=== PATIENT | female | born 1940 | race Caucasian/White ===

== ENCOUNTER 2020-04-04 08:30 | Outpatient (CLI) | payer MEDICARE, OTHER, SELFPAY ==
--- NOTE | 2020-04-04 08:48 | MM_ITS ---
WS: [id number] BILATERAL DIGITAL SCREENING MAMMOGRAPHY WITH CAD CLINICAL INFORMATION: SCREENING HISTORY: Screening mammogram. No current complaints. COMPARISON: TECHNIQUE: Bilateral CC and MLO views. FINDINGS: The breasts are composed of heterogeneous fibroglandular density tissue, which can limit the detectio n of small underlying mass lesions. No suspicious mass, asymmetry, calcifications, or architectural d istortion. No evidence of malignancy. Vascular calcification. Cardiac pacer. MM/[place] [id number] IMPRESSION: BI-RADS: 2-Benign FOLLOW UP: 1 Year Follow-up Recommend return to annual screening mammography.
== END 2020-04-04 08:31 | disposition home or self-care (01) ==
PROVIDERS: PCP Family Medicine; Visit Provider Family Medicine
DX: Z12.31 Encounter for screening mammogram for malignant neoplasm of breast (principal)
CPT/HCPCS: 77067

== ENCOUNTER → 2020-08-29 16:10 | Outpatient (BNVA) | payer MEDICARE, OTHER, SELFPAY | PROVIDERS: PCP Family Medicine; Visit Provider Family Medicine | DX: Z11.59 Encounter for screening for other viral diseases (principal) | CPT/HCPCS: 87635 ==

== ENCOUNTER 2020-08-30 08:20 | Emergency (ER) | payer MEDICARE, OTHER, SELFPAY ==
--- NOTE | 2020-08-30 08:37 | XR_ITS ---
WS: [id number] Portable AP upright chest, 08/30/2020 Clinical Data: Cough Comparison: Portable chest, 11/28/2016. Findings: No nodules, masses or effusions are seen. The heart is normal. The pulmonary vascularity is not increased. No pneumonia or pneumothorax is seen. The 2-lead pacemaker remains in the same positi on with the generator overlying the left mid chest. There is a levoscoliosis of the thoracic spine. T he aortic arch and descending aorta show mild tortuosity. XR/XR chest 1V portable [id number] Impression: Atherosclerosis and permanent pacemaker.
[2020-08-30 08:44] VITALS: PULSE 78; RESP 18; TEMP 36.9; O2SAT 97; BMI 25.2
[2020-08-30 08:47] VITALS: PULSE 78; RESP 16; TEMP 36.9; O2SAT 97
[2020-08-30 08:47] LABS: Basophils % 1.4 %; Eosinophils % 0.5 %; Hematocrit 43.9 % (37.0-47.0); Hemoglobin 14.7 g/dL (11.5-15.3); Lymphocytes # 0.5 10^3/uL (0.8-4.8); Lymphocytes % 20.4 %; Mean Corpuscular HGB Conc 33.5 g/dL (30.0-36.0); Mean Corpuscular Hemoglobin 30.7 pg (28.0-34.0); Mean Corpuscular Volume 91.6 fL (81-99); Monocytes # 0.2 10^3/uL (0.2-0.9); Monocytes % 10.4 %; Neutrophils # 1.47 10^3/uL (1.8-7.7); Neutrophils % 66.4 %; Nucleated Red Blood Cells % 0 %; Platelet Count 87 10^3/cmm (130-400); Red Blood Count 4.79 10^6/uL (4.1-5.3); Red Cell Distribution Width 11.5 % (12.1-15.1); White Blood Count 2.2 10^3/uL (4.0-10.0)
[2020-08-30 08:53] VITALS: BP 170/91; PULSE 73; RESP 16; O2SAT 97
[2020-08-30] MEDS: sodium chloride 0.9% 1,000 ML 999 ML IV (08:53)
--- NOTE | 2020-08-30 08:56 | W.ED.SOB ---
HPI - SOB/Dyspnea General: Chief Complaint: Shortness of Breath/Dyspnea Stated Complaint: Persistent cough,SOB. Time Seen by Provider: 08/30/20 08:26 Source: patient Mode of arrival: ambulatory Limitations: no limitations History of Present Illness: HPI Narrative: Destiny is a very nice 80-year-old female who comes in complaining of cough, shortness of breath and decreased appetite. She has chills and she is had a fever as high as 100.6. The patient believes she has the COVID-19 virus. Her and she have both been tested but the results are unknown. Patient states that her symptoms have been present for about the last week and a half. Any type of exertion makes her symptoms worse and rest and sleep makes it better. She states that she has continued diarrhea and just generalized weakness. Associated symptoms: Reports fever(s) and nausea; Deny abdominal pain, chest congestion, chest pain, diaphoresis, dizziness, extremity pain, hemoptysis, lightheadedness, orthopnea, palpitations, syncope or vomiting Review of Systems Const: Reports: fever(s), chills, body aches, fatigue and malaise; Denies: diaphoresis Eyes: Denies: change in vision, blurry vision, photophobia, eye discomfort, eye discharge, eye redness or yellow eyes ENMT: Denies: throat pain, odynophagia, hoarseness, swelling of lips/tongue, ear or mastoid pain, ear discharge, change in hearing or nasal discharge Card: Denies: chest pain, palpitations, irregular heart rhythm, edema, lightheadedness, syncope, pre-syncope, dyspnea on exertion or orthopnea Resp: Reports: non-productive cough; Denies: dyspnea, productive cough, wheezing, hemoptysis or chest congestion GI: Reports: nausea; Denies: abdominal pain, vomiting, hematemesis, coffee ground emesis, heartburn, diarrhea, constipation, GI cramping, hematochezia or melena : Denies: flank pain, dysuria, urinary frequency, urinary urgency or hematuria Musc: Denies: neck pain, back pain, extremity pain, extremity swelling, joint pain, joint swelling, joint redness, joint warmth or joint stiffness Skin/Breast: Denies: rash, pruritus, erythema, skin pain or skin tenderness Neuro: Denies: headache(s), numbness in extremities, weakness in extremities, sensory changes, lack of coordination, difficulty walking, dizziness, vertigo, confusion, Slurred speech present or seizure-like activity Juan/Lymph: Denies: easy bruising, easy bleeding, petechiae, purpura or enlarged lymph nodes All/Imm: Denies: urticaria, throat swelling, tongue swelling, facial swelling or acute wheezing PFSH ED PFSH: Medical History Allergic rhinitis Aortic regurgitation Atrial fibrillation Hypertension Hypothyroid Pacemaker Family History Other CAD (coronary artery disease) Diabetes Stroke Social History Smoking and tobacco status: never smoked Alcohol intake: never Household members: spouse Marital status: Physical Exam Const: COMMON NORMALS: no acute distress, patient oriented x3, no limitations and alert GENERAL APPEARANCE: cooperative HENMT: COMMON NORMALS: normocephalic, atraumatic, external ears normal, EAC's normal and Normal external nose present HEAD & SCALP: normal to inspection, normocephalic and atraumatic FACE & SINUS: normal facial exam and face symmetric NOSE: Normal external nose present and Normal nares present EXTERNAL EAR: Yes external ears normal EXTERNAL AUDITORY CANAL: EAC's normal MOUTH: Normal oral and palatal mucosa present, lip normal and tongue normal Eye: COMMON NORMALS: Equal, round and reactive pupils present and conjunctivae normal GENERAL EYE: appearance normal, both eyes and all related structures ALIGNMENT: Yes alignment normal PERIORBITAL: periorbital findings normal EYELID: eyelids normal CONJUNCTIVA: Yes conjunctivae normal SCLERA: sclerae normal PUPIL: Yes Equal, round and reactive pupils present Neck/C-Spine: COMMON NORMALS: full ROM, no lymphadenopathy, supple, no meningeal signs and no JVD GENERAL: Yes normal visual inspection and Yes trachea midline Chest: COMMONS NORMALS: normal inspection of the chest and normal palpation of entire chest wall Resp: COMMON NORMALS: normal respiratory effort, No retractions, No use of accessory muscles and clear to auscultation bilaterally EFFORT & INSPECTION: Yes able to speak in complete sentences and Yes symmetric chest movement AUSCULTATION: clear to auscultation bilaterally, no crackles, no rales, no rhonchi and no wheezes Cardio: COMMON NORMALS: no JVD, regular rate, regular rhythm, S1 normal heart sound present and S2 normal heart sound present RATE: regular rate RHYTHM: regular rhythm HEART SOUNDS: S1 normal heart sound present, S2 normal heart sound present, no click, no gallops, no murmurs and no rubs GI: COMMON NORMALS: Soft to palpation and No hepatosplenomegaly present PALPATION: Yes Soft to palpation, No Tenderness to palpation present (GI), No Guarding due to palpation present (GI), No Rigid due to palpation, Yes No hepatosplenomegaly present, No Hernia present, No Palpable mass present and No Pulsatile mass present : COMMON NORMALS: Yes no CVA tenderness BLADDER/KIDNEY EXAM: Yes no CVA tenderness EXTERNAL FEMALE EXAM: No Hernia present Back/Pelvis: COMMON NORMALS: no CVA tenderness, thoracic and lumbar spine normal to inspection, no thoracic nor lumbar tenderness and thoraco-lumbar ROM normal Extremity: COMMON NORMALS: normal to inspection, full ROM, capillary refill normal, no joint enlargement, no clubbing, cyanosis or edema and no calf tenderness Neuro: COMMON NORMALS: patient oriented x3, CN's II-XII intact bilaterally, moves all extremities, no focal motor deficits and no sensory deficits noted SENSORIUM/ORIENTATION: Yes alert MENINGEAL SIGNS: Yes no meningeal signs SPEECH: speech normal Psych: COMMON NORMALS: mental status grossly normal, Normal thought process present, cooperative, normal affect, speech normal and activity/motor behavior normal SPEECH: Yes normal speech THOUGHT PROCESS: Normal thought process present Skin: COMMON NORMALS: no rashes or lesions noted, turgor normal, no jaundice, no petechiae and no mottling GENERAL SKIN EXAM: no rashes or lesions noted and turgor normal Course Vital Signs: Vital signs: Vital Signs Temperature 98.7 F 08/30/20 10:32 Pulse Rate 79 08/30/20 10:32 Respiratory Rate 18 08/30/20 10:32 Blood Pressure 167/92 08/30/20 10:32 Pulse Oximetry 97 08/30/20 10:32 MDM - SOB/Dyspnea MDM Narrative: Medical decision making narrative: 1000 - Mrs. Dow is a very nice 80-year-old female who comes in complaining of primarily generalized weakness and diarrhea. I believe she is mildly dehydrated from her diarrhea that she has from the COVID-19 virus. She is not in respiratory distress and she is not hypoxic. I go to place her on steroids for her breathing as she is symptomatic with this and will place her on antibiotic as she is mildly leukopenic. Patient wants to try something for diarrhea at home slight given her dicyclomine. Clinically she does not appear toxic and is several days into this illness. She understands to return if her symptoms change or worsen but at this time she is feeling better would like to be discharged. I did review the case with Dr. Noland he is agreeable to this plan. Lab Data: Attestation: I reviewed the patient's lab results. Labs: Lab Results 08/30/20 08/30/20 08/30/20 Range/Units 08:38 08:38 08:38 WBC 2.2 L (4.0-10.0) 10^3/ uL RBC 4.79 (4.1-5.3) 10^6/u L Hgb 14.7 (11.5-15.3) g/dL Hct 43.9 (37.0-47.0) % MCV 91.6 (81-99) fL MCH 30.7 (28.0-34.0) pg MCHC 33.5 (30.0-36.0) g/dL RDW 11.5 L (12.1-15.1) % Plt Count 87 L (130-400) 10^3/c mm MPV 10.0 (7.4-10.4) fL Neut % (Auto) 66.4 % Lymph % (Auto) 20.4 % [place] % (Auto) 10.4 % Eos % (Auto) 0.5 % Baso % (Auto) 1.4 % Neut # (Auto) 1.47 L (1.8-7.7) 10^3/u L Lymph # (Auto) 0.5 L (0.8-4.8) 10^3/u L [place] # (Auto) 0.2 (0.2-0.9) 10^3/u L Eos # (Auto) 0.0 (0.0-0.8) 10^3/u L Baso # (Auto) 0.0 (0.0-0.1) 10^3/u L Nucleated RBC % (a uto) 0 % Nucleated RBCs # 0.0 /100WBC Fibrinogen 457 (174-498) mg/dL Sodium 138 (136-145) mmol/L Potassium 3.9 (3.5-5.1) mmol/L Chloride 100 (98-107) mmol/L Carbon Dioxide 25 (22-29) mmol/L Anion Gap 16.9 (5-19) BUN 19 (8-23) mg/dL Creatinine 1.0 H (0.5-0.9) mg/dL GFR Calculation Not Reportable Glucose 154 H (65-115) mg/dL Calculated Osmolal ity 291 (285-295) mOsm/k g Lactic Acid (0.5-2.2) mmol/L Calcium 9.1 (8.5-10.5) mg/dL Magnesium 1.9 (1.7-2.3) mg/dL Total Bilirubin 0.7 (0.15-1.2) mg/dL AST 48 H (0-32) U/L ALT 14 (0-33) U/L Alkaline Phosphata se 74 (35-105) IU/L Lactate Dehydrogen ase 277 H (135-214) U/L C-Reactive Protein 14.6 H (0.0-4.9) mg/L Total Protein 6.6 (6.6-8.7) g/dL Albumin 4.3 (3.5-5.2) g/dL Globulin 2.3 (1.3-4.6) g/dL Procalcitonin 0.08 (0-0.5) ng/mL Influenza Type A A g (Negative) Influenza Type B A g (Negative) SARS-CoV-2 Ag (Rap id) (Negative) 08/30/20 08/30/20 08/30/20 Range/Units 08:38 08:59 08:59 WBC (4.0-10.0) 10^3/ uL RBC (4.1-5.3) 10^6/u L Hgb (11.5-15.3) g/dL Hct (37.0-47.0) % MCV (81-99) fL MCH (28.0-34.0) pg MCHC (30.0-36.0) g/dL RDW (12.1-15.1) % Plt Count (130-400) 10^3/c mm MPV (7.4-10.4) fL Neut % (Auto) % Lymph % (Auto) % [place] % (Auto) % Eos % (Auto) % Baso % (Auto) % Neut # (Auto) (1.8-7.7) 10^3/u L Lymph # (Auto) (0.8-4.8) 10^3/u L [place] # (Auto) (0.2-0.9) 10^3/u L Eos # (Auto) (0.0-0.8) 10^3/u L Baso # (Auto) (0.0-0.1) 10^3/u L Nucleated RBC % (a uto) % Nucleated RBCs # /100WBC Fibrinogen (174-498) mg/dL Sodium (136-145) mmol/L Potassium (3.5-5.1) mmol/L Chloride (98-107) mmol/L Carbon Dioxide (22-29) mmol/L Anion Gap (5-19) BUN (8-23) mg/dL Creatinine (0.5-0.9) mg/dL GFR Calculation Glucose (65-115) mg/dL Calculated Osmolal ity (285-295) mOsm/k g Lactic Acid 1.1 (0.5-2.2) mmol/L Calcium (8.5-10.5) mg/dL Magnesium (1.7-2.3) mg/dL Total Bilirubin (0.15-1.2) mg/dL AST (0-32) U/L ALT (0-33) U/L Alkaline Phosphata se (35-105) IU/L Lactate Dehydrogen ase (135-214) U/L C-Reactive Protein (0.0-4.9) mg/L Total Protein (6.6-8.7) g/dL Albumin (3.5-5.2) g/dL Globulin (1.3-4.6) g/dL Procalcitonin (0-0.5) ng/mL Influenza Type A A g Negative (Negative) Influenza Type B A g Negative (Negative) SARS-CoV-2 Ag (Rap id) Positive H (Negative) Imaging Data^: CXR: Attestation: I personally reviewed and interpreted this imaging study as follows: My impression: No acute cardiopulmonary findings. Discharge Plan Discharge Patient Disposition: Home Clinical Impression: Viral pneumonitis, COVID-19 virus infection Diarrhea Qualifiers: Diarrhea type: unspecified type Qualified Code(s): R19.7 - Diarrhea, unspecified Condition: Stable Prescriptions: New Decadron 6 mg tablet 6 mg PO DAILY Qty: 10 RF: 0 Zithromax Z-Fabio 250 mg tablet See Rx Instructions .ROUTE .COMPLEX Qty: 6 RF: 0 Zofran 4 mg tablet 4 mg PO Q6H PRN (Reason: nausea and vomiting) Qty: 20 RF: 0 dicyclomine 10 mg capsule 10 mg PO TID PRN (Reason: diarrhea) Qty: 30 RF: 0 No Action nitroglycerin [Nitrostat] 0.4 mg tablet, sublingual 0.4 mg SUBLINGUAL Q5M PRNRF: 0 cholecalciferol (vitamin D3) 25 mcg (1,000 unit) capsule 25 mcg PO DAILY RF: 0 ketotifen fumarate [Zaditor] 0.025 % (0.035 %) drops 1 drop ophthalmic (eye) BID RF: 0 multivitamin Tablet 1 tab PO DAILY RF: 0 silver biotics 1 tbsp PO DAILY RF: 0 fluticasone propionate [Flonase Allergy Relief] 50 mcg/actuation spray,suspension 1 spray INTRANASAL BID RF: 0 chromium picolinate 1,000 mcg tablet 1,000 mcg PO DAILY RF: 0 selenium 200 mcg capsule 200 mcg PO DAILY RF: 0 zinc gluconate 50 mg tablet 50 mg PO DAILY RF: 0 omega-3 acid ethyl esters 1 gram capsule 1 cap PO DAILY RF: 0 biotin 5,000 mcg tablet, sublingual 5,000 mcg SUBLINGUAL DAILY RF: 0 coenzyme Q10 [Co Q-10] 100 mg capsule 100 mg PO DAILY RF: 0 potassium gluconate 595 mg (99 mg) tablet 595 mg PO DAILY RF: 0 multivitamin Tablet 1 tab PO DAILY RF: 0 magnesium oxide 400 mg magnesium tablet 400 mg PO DAILY RF: 0 levothyroxine 75 mcg capsule 75 mcg PO DAILY RF: 0 metoprolol tartrate 50 mg tablet 100 mg PO BID RF: 0 Discharge Orders: Discharge Order (Routine); Ordered 08/30/20 Ordered By: Sita James Referrals: Chucky Noland MD [Primary Care Provider] - 1-3 days Discharge Diet: Advance as tolerated Discharge Activity: Increase activity as tolerated Patient Instructions: Viral Pneumonia (ED), Acute Nausea and Vomiting (ED), Acute Diarrhea (ED) Activity Restrictions/Additional Instructions: Please return to the ER immediately for any of the signs or symptoms listed on your discharge instruction sheets, worsening/changing of your symptoms, you are not getting better as quickly as expected, or for ANY other cause or concerns. Return to the ER for worsening of your diarrhea, uncontrolled fever, new onset of vomiting, blood in your stools, or for any other cause for concern. Be certain to follow-up with Dr. Noland for recheck next week. Discharge Date/Time: 08/30/20 10:36 Coding Level of Care Code ED Warehouse Helper for Chg Fwd Exam Comprehensive
[2020-08-30 08:58] LABS: Fibrinogen 457 mg/dL (174-498)
[2020-08-30 09:03] LABS: Lactic Sepsis W/Reflex 1.1 mmol/L (0.5-2.2)
[2020-08-30 09:11] LABS: Procalcitonin 0.08 ng/mL (0-0.5)
[2020-08-30 09:22] LABS: Alanine Aminotransferase 14 U/L (0-33); Albumin Level 4.3 g/dL (3.5-5.2); Alkaline Phosphatase 74 IU/L (35-105); Blood Urea Nitrogen 19 mg/dL (8-23); C Reactive Protein 14.6 mg/L (0.0-4.9); Calcium 9.1 mg/dL (8.5-10.5); Carbon Dioxide 25 mmol/L (22-29); Chloride 100 mmol/L (98-107); Globulin 2.3 g/dL (1.3-4.6); Glucose 154 mg/dL (65-115); Magnesium 1.9 mg/dL (1.7-2.3); Osmolality Calculated 291 mOsm/kg (285-295); Sodium 138 mmol/L (136-145); Total Bilirubin 0.7 mg/dL (0.15-1.2); Total Protein 6.6 g/dL (6.6-8.7)
[2020-08-30 09:28] LABS: Anion Gap 16.9 (5-19); Aspartate Amino Transferase 48 U/L (0-32); Lactate Dehydrogenase 277 U/L (135-214); Potassium 3.9 mmol/L (3.5-5.1)
[2020-08-30 09:40] LABS: SARS Covid-2 Antigen Positive (Negative)
[2020-08-30 09:43] LABS: Influenza A by IFA Negative (Negative); Influenza B by IFA Negative (Negative)
[2020-08-30] MEDS: levoFLOXacin 750 mg Tablet PO (10:20)
[2020-08-30] MEDS: dexamethasone 10 mg/mL INJ IVP (10:20)
[2020-08-30 10:32] VITALS: BP 167/92; PULSE 79; RESP 18; TEMP 37.1; O2SAT 97
== END 2020-08-30 10:36 | disposition home or self-care (01) ==
PROVIDERS: Emergency Provider Emergency Medicine; PCP Family Medicine
DX: U07.1 COVID-19 (principal); J12.89 Other viral pneumonia; R19.7 Diarrhea, unspecified; I48.91 Unspecified atrial fibrillation; I10 Essential (primary) hypertension; Z95.0 Presence of cardiac pacemaker
CPT/HCPCS: 12345; 71045; 80053; 83605; 83615; 83735; 84145; 85025; 85384; 86140; 87040; 87426; 87804; 96361; 96374; 96375; 99283; 99284; J1100; J7030

== ENCOUNTER 2020-10-30 21:06 | Emergency (ER) | payer MEDICARE, OTHER, SELFPAY ==
[2020-10-30 21:08] VITALS: BP 198/98; PULSE 75; RESP 18; TEMP 36.6; O2SAT 97; BMI 26.4
--- NOTE | 2020-10-30 21:16 | XRR_ITS ---
PROCEDURE INFORMATION: Exam: XR Right Shoulder Exam date and time: 10/30/2020 9:30 PM Age: 80 years old Clinical indication: Injury or trauma; Fall; Blunt trauma (contusions or hematomas); Shoulder; Right; Injury date: 10/30/20 TECHNIQUE: Imaging protocol: XR Right shoulder. Views: 2 or more views. COMPARISON: No relevant prior studies available. FINDINGS: Bones/joints: There is a impacted comminuted fracture through the proximal humeral neck. The fracture is oriented predominantly transversely but there is a hairline longitudinal component extending into the shaft. The distal fragment is displaced approximately 1.5 cm anteriorly. The humeral head is not dislocated. The scapula and clavicle are unremarkable. Soft tissues: Normal. XR/XR shoulder RT min 2V* [id number] IMPRESSION: Displaced comminuted transverse fracture of the proximal humerus.
--- NOTE | 2020-10-30 21:17 | W.ED.FALL ---
HPI - Fall General: Chief Complaint: Fall Stated Complaint: fall/injury to right shoulder Time Seen by Provider: 10/30/20 21:17 History of Present Illness: HPI Narrative: Patient is a 80-year-old female comes to the ED with right shoulder pain after a fall. Fall occurred just prior to arrival. Patient says she slipped on some water on concrete ground floor. She fell and landed on her right shoulder. She says she felt a pop. Patient says she is in some pain but does not want any narcotic pain meds currently while here in the ED. Patient would just like some Tylenol for pain. Denies any head trauma or loss of consciousness. Associated symptoms-after fall: Denies abdominal pain, chest pain, headache(s), hematuria or neck pain Review of Systems Const: Denies: fever(s), chills or fatigue Eyes: Denies: change in vision or eye discomfort ENMT: Denies: throat pain, odynophagia, nasal discharge or nasal congestion Card: Denies: chest pain, palpitations, edema, swelling of feet/ankles, dyspnea on exertion or orthopnea Resp: Denies: dyspnea, productive cough or non-productive cough GI: Denies: abdominal pain, nausea, vomiting, diarrhea, constipation or hematochezia : Denies: flank pain, dysuria or hematuria Musc: Reports: extremity pain (right upper arm and right shoulder); Denies: neck pain, back pain or extremity swelling Skin/Breast: Denies: rash or new lesions Neuro: Denies: headache(s), numbness in extremities or weakness in extremities [facility] ED PFSH: Medical History Allergic rhinitis Aortic regurgitation Atrial fibrillation Hypertension Hypothyroid Pacemaker Family History Other CAD (coronary artery disease) Diabetes Stroke Social History Smoking and tobacco status: never smoked Alcohol intake: never Household members: spouse Marital status: Physical Exam Const: COMMON NORMALS: patient oriented x3, healthy appearing and alert GENERAL APPEARANCE: cooperative and comfortable HENMT: COMMON NORMALS: normocephalic HEAD & SCALP: normocephalic MOUTH: Normal oral and palatal mucosa present THROAT: posterior oropharynx normal and uvula midline Neck/C-Spine: COMMON NORMALS: supple GENERAL: Yes normal visual inspection Resp: COMMON NORMALS: normal respiratory effort, No retractions, No use of accessory muscles and clear to auscultation bilaterally AUSCULTATION: clear to auscultation bilaterally Cardio: COMMON NORMALS: regular rate, regular rhythm, S1 normal heart sound present, S2 normal heart sound present, No gallops present (Cardio), No clicks present (Cardio), No murmurs present (Cardio) and Peripheral pulses 2+ throughout RATE: regular rate RHYTHM: regular rhythm HEART SOUNDS: S1 normal heart sound present and S2 normal heart sound present PERIPHERAL PULSES: Peripheral pulses 2+ throughout GI: COMMON NORMALS: Normal to inspection, nondistended, normoactive bowel sounds present, Soft to palpation, non-tender and no masses PALPATION: Yes Soft to palpation : COMMON NORMALS: Yes no CVA tenderness BLADDER/KIDNEY EXAM: Yes no CVA tenderness Back/Pelvis: COMMON NORMALS: no CVA tenderness Extremity: GENERAL: Yes normal exam except as noted RIGHT UPPER EXTREMITY: Yes shoulder joint (Patient has tenderness to palpation around the proximal humeral head.) Right shoulder: Yes Right shoulder joint inspection exam (No visible deformity, or ecchymosis. Some mild edema and lateral aspect of), Yes palpation, Yes Right shoulder joint ROM exam (Limited due to pain.) and Yes Right shoulder joint neurovascular exam (Intact, radial pulse 2+.) Neuro: COMMON NORMALS: patient oriented x3 and moves all extremities SENSORIUM/ORIENTATION: Yes alert Skin: GENERAL SKIN EXAM: dry skin Course Vital Signs: Vital signs: Vital Signs Temperature 97.8 F 10/30/20 21:08 Pulse Rate 75 10/30/20 21:08 Respiratory Rate 16 10/30/20 22:06 Blood Pressure 198/98 10/30/20 21:08 Pulse Oximetry 97 10/30/20 21:08 MDM - Fall MDM Narrative: Medical decision making narrative: Patient is a 80-year-old female who comes to the ED with right shoulder pain after fall. No visible deformity seen but patient has tenderness upon palpation of the proximal head of right humerus. Neurovascular intact distally. Right shoulder x-ray showed surgical neck fracture of the proximal humerus. Patient was put in a shoulder sling and swath. I placed an order with case management for patient to be referred to Dr. Aponte. Patient says that she sees Dr. Aponte and no one else. She was sent home with a written prescription for hydrocodone. I told her casework supervisor will be contacting her in the next several days to set up an appoint with orthopedic doctor. Return to ED precautions given. Patient understood agree with plan. Imaging Data^: Xray Ortho: Attestation: I personally reviewed and interpreted this imaging study as follows: My impression: Right shoulder x-ray?minimally displaced surgical neck fracture of the proximal humerus. Discharge Plan Discharge Patient Disposition: Home Clinical Impression: Fracture of proximal end of humerus Qualifiers: Encounter type: initial encounter Fracture type: closed Fracture morphology: other fracture Fracture alignment: nondisplaced Laterality: right Qualified Code(s): S42.294A - Other nondisplaced fracture of upper end of right humerus, initial encounter for closed fracture Condition: Stable Prescriptions: No Action nitroglycerin [Nitrostat] 0.4 mg tablet, sublingual 0.4 mg SUBLINGUAL Q5M PRNRF: 0 cholecalciferol (vitamin D3) 25 mcg (1,000 unit) capsule 25 mcg PO DAILY RF: 0 ketotifen fumarate [Zaditor] 0.025 % (0.035 %) drops 1 drop ophthalmic (eye) BID RF: 0 multivitamin Tablet 1 tab PO DAILY RF: 0 silver biotics 1 tbsp PO DAILY RF: 0 fluticasone propionate [Flonase Allergy Relief] 50 mcg/actuation spray,suspension 1 spray INTRANASAL BID RF: 0 chromium picolinate 1,000 mcg tablet 1,000 mcg PO DAILY RF: 0 selenium 200 mcg capsule 200 mcg PO DAILY RF: 0 zinc gluconate 50 mg tablet 50 mg PO DAILY RF: 0 omega-3 acid ethyl esters 1 gram capsule 1 cap PO DAILY RF: 0 biotin 5,000 mcg tablet, sublingual 5,000 mcg SUBLINGUAL DAILY RF: 0 coenzyme Q10 [Co Q-10] 100 mg capsule 100 mg PO DAILY RF: 0 potassium gluconate 595 mg (99 mg) tablet 595 mg PO DAILY RF: 0 multivitamin Tablet 1 tab PO DAILY RF: 0 magnesium oxide 400 mg magnesium tablet 400 mg PO DAILY RF: 0 levothyroxine 75 mcg capsule 75 mcg PO DAILY RF: 0 metoprolol tartrate 50 mg tablet 100 mg PO BID RF: 0 Zofran 4 mg tablet 4 mg PO Q6H PRN (Reason: nausea and vomiting) Qty: 20 RF: 0 dicyclomine 10 mg capsule 10 mg PO TID PRN (Reason: diarrhea) Qty: 30 RF: 0 Discharge Orders: Discharge ED (Routine); Ordered 10/30/20 Ordered By: Christian Lawson Referrals: Chucky Noland MD [Primary Care Provider] - Discharge Diet: Regular Discharge Activity: Limit activity as instructed Patient Instructions: Fractures - Humerus, Arm Fracture in Adults (ED) Activity Restrictions/Additional Instructions: Follow-up with medical provider as directed. Case management should be contacting you in the next several days to set up an appoint with the orthopedic doctor Dr. Aponte. Keep arm in immobilizer limit activity and use of right arm. Take pain medications as prescribed. Return to the ER or your medical provider if condition worsens. Please read and understand discharge instructions. If any questions, please ask. Coding Level of Care Code ED Convention Manager for Alexx Fwd Exam Comprehensive
[2020-10-30] MEDS: acetaminophen 500 mg Tablet 1000 MG PO (21:43)
[2020-10-30 22:06] VITALS: RESP 16
--- NOTE | 2020-10-31 09:16 | DCPLANNER ---
problem manager had message to schedule a follow up appointment for patient with ortho. problem manager called the ortho clinic, spoke with Samara, gave clinic patients information. problem manager was told that patients information would be printed and reviewed. Clinic will call patient with appointment information.
--- NOTE | 2020-11-06 13:09 | DCPLANNER ---
Patient had a follow up appointment scheduled for 10.31.20 with ortho - patient did attend appointment.
== END 2020-10-30 22:07 | disposition home or self-care (01) ==
PROVIDERS: Emergency Provider Physician Assistant; PCP Family Medicine
DX: S42.294A Other nondisplaced fracture of upper end of right humerus, initial encounter for closed fracture (principal); I48.91 Unspecified atrial fibrillation; I10 Essential (primary) hypertension; Z95.0 Presence of cardiac pacemaker; W01.0XXA Fall on same level from slipping, tripping and stumbling without subsequent striking against object, initial encounter
CPT/HCPCS: 12345; 73030; 99281; 99283

== ENCOUNTER → 2020-11-28 09:10 | Outpatient (BNVA) | payer MEDICARE, OTHER, SELFPAY | PROVIDERS: PCP Family Medicine; Visit Provider Orthopaedic Surgery | DX: S42.294A Other nondisplaced fracture of upper end of right humerus, initial encounter for closed fracture (principal); X58.XXXA Exposure to other specified factors, initial encounter | CPT/HCPCS: 73030 ==

== ENCOUNTER → 2021-01-09 09:40 | Outpatient (BNVA) | payer MEDICARE, OTHER, SELFPAY | PROVIDERS: PCP Family Medicine; Visit Provider Orthopaedic Surgery | DX: S42.201D Unspecified fracture of upper end of right humerus, subsequent encounter for fracture with routine healing (principal); X58.XXXD Exposure to other specified factors, subsequent encounter; Z47.89 Encounter for other orthopedic aftercare | CPT/HCPCS: 73030 ==

== ENCOUNTER 2021-06-18 09:21 | Outpatient (CLI) | payer MEDICARE, OTHER, SELFPAY ==
--- NOTE | 2021-06-18 09:30 | USCV_ITS ---
Destiny Dow Age: 81 Gender: F : 1940 Exam Date: 06/18/2021 09:48 Ordering Phys: Ana Rosa Ramirez MD ([email or web address]) Technologist: Jessica Gutierrez Exam Location: [facility] [place] Indication: HISTORY: PROCEDURES: FINDINGS: The veins were found to be easily compressible with spontaneous blood flow. Non pulsatile flow pattern. CONCLUSIONS 1. No evidence of DVT in the above-mentioned identifiable veins. 2. Significant venous reflux of greater than 500ms were noted at the proximal, mid, distal and below-knee segments of the greater saphenous vein on the right side. These venous segments were measuring anywhere from 0.2-2 0.33 cm in diameter. The proximal and mid segments were greater than 1 cm deep from the surface. The distal greater saphenous vein segment and the small saphenous vein segments were less than 1 cm deep from the surface. Significant venous reflux of greater than 500 ms were also noted in the proximal and mid segments of the small saphenous vein. 3. On the left side, significant venous reflux of greater than 500 ms was noted in the mid small saphenous vein segment, measuring 0.2 cm in diameter at a depth of 0.[address] Ana Rosa Ramirez MD [facility] (Electronically Signed) Final Date: 18 June 2021 23:16 S
== END 2021-06-18 09:22 | disposition home or self-care (01) ==
LOC: US 09:25
PROVIDERS: PCP Family Medicine; Visit Provider Internal Medicine Cardiovascular Disease
DX: I83.93 Asymptomatic varicose veins of bilateral lower extremities (principal)
CPT/HCPCS: 93970

== ENCOUNTER 2021-07-10 10:56 | Outpatient (CLI) | payer MEDICARE, OTHER, SELFPAY ==
--- NOTE | 2021-07-10 11:04 | CT_ITS ---
WS: [id number] CT CHEST TECHNIQUE: Noncontrast CT of the chest with coronal and sagittal reformatted images. CLINICAL INFORMATION: FATIGUE, LYMPHADENOPATHY, AFIB, HYPERTENSION COMPARISON: None. DLP: 606.[address] scans at [facility] use at least one of these dose optimization techniques: automated e xposure control; mA and/or kV adjustment per patient size (includes targeted exams where dose is matc hed to clinical indication); or iterative reconstruction. FINDINGS: Area of interest marked with a BB in the left axilla. Normal underlying subcutaneous soft tissues. No suspicious underlying subcutaneous mass or lesion. No axillary lymphadenopathy. Cardiac pacer. Mild chronic emphysematous changes. No focal pneumonia or pleural fluid. No acute pulmonary infiltrat es. Bibasilar atelectasis. Aortic calcification. A few prominent anterior mediastinal and subcarinal lymph nodes nonspecific but may be reactive. This can be followed up with chest CT in 6 months. Adrenal glands are normal. Small esophageal hiatal hernia. CT/CT chest wo con [id number] IMPRESSION: 1. No evidence of subcutaneous mass or lesion in the area of concern left axil la. 2. No axillary lymphadenopathy. 3. A few prominent anterior mediastinal and subcarinal lymph nodes nonspecific but may be reactive. This can be followed up in [address] 4. Mild chronic emphysematous changes. No acute pulmonary infiltrates.
== END 2021-07-10 10:57 | disposition home or self-care (01) ==
PROVIDERS: PCP Family Medicine; Visit Provider Family Medicine
DX: R53.83 Other fatigue (principal); R59.1 Generalized enlarged lymph nodes; I48.91 Unspecified atrial fibrillation; E03.9 Hypothyroidism, unspecified; I10 Essential (primary) hypertension
CPT/HCPCS: 71250

== ENCOUNTER 2021-11-03 12:42 | Emergency (ER) | payer MEDICARE, OTHER, SELFPAY ==
[2021-11-03 12:50] VITALS: BP 138/60; PULSE 66; RESP 16; TEMP 36.7; O2SAT 96; BMI 23.0
--- NOTE | 2021-11-03 13:17 | XR_ITS ---
WS: [id number] Portable AP upright chest, 11/03/2021 Clinical Data: chest pain Comparison: Portable chest, 08/30/2020. Findings: No nodules, masses or effusions are seen. The heart is normal. The pulmonary vascularity is not increased. No pneumonia or pneumothorax is seen. The aortic arch and descending thoracic aorta s how tortuosity. There is a levoscoliosis. There is a permanent pacemaker unchanged in position. XR/XR chest 1V portable [id number] Impression: Atherosclerosis and permanent pacemaker.
--- NOTE | 2021-11-03 13:17 | ECG_ITS ---
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 Measurements Intervals [place] Rate: 65 P: VA: QRS: -78 QRSD: 154 T: 75 QT: 436 QTc: 454 Interpretive Statements ELECTRONIC VENTRICULAR PACEMAKER ABNORMAL RHYTHM ECG Compared to ECG 11/28/2016 12:24:54 Atrial-paced complex(es) or rhythm no longer present Electronically Signed On 11-03-2021 15:18:22 PATIENT ACCESS REPRESENTATIVE by Shea David M.D. [id number]
[2021-11-03 14:55] LABS: Basophils # 0.1 10^3/uL (0.0-0.1); Basophils % 0.8 %; Eosinophils # 0.1 10^3/uL (0.0-0.8); Eosinophils % 1.4 %; Hematocrit 38.7 % (37.0-47.0); Hemoglobin 13.1 g/dL (11.5-15.3); Lymphocytes # 1.2 10^3/uL (0.8-4.8); Lymphocytes % 16.3 %; Mean Corpuscular HGB Conc 33.9 g/dL (30.0-36.0); Mean Corpuscular Hemoglobin 31.6 pg (28.0-34.0); Mean Corpuscular Volume 93.5 fl (81-99); Mean Platelet Volume 9.7 fL (7.4-10.4); Monocytes # 0.5 10^3/uL (0.2-0.9); Monocytes % 6.8 %; Neutrophils # 5.48 10^3/uL (1.8-7.7); Neutrophils % 74.6 %; Nucleated Red Blood Cells % 0 %; Platelet Count 114 10^3/cmm (130-400); Red Blood Count 4.14 10^6/uL (4.1-5.3); Red Cell Distribution Width 12.2 % (12.1-15.1); White Blood Count 7.4 10^3/uL (4.0-10.0)
[2021-11-03 15:17] LABS: Troponin(5th) Baseline 15 ng/L (0-10)
--- NOTE | 2021-11-03 15:17 | ECG_ITS ---
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 Measurements Intervals [place] Rate: 67 P: 65 PA: 141 QRS: -25 QRSD: 88 T: 16 QT: 376 QTc: 397 Interpretive Statements SINUS RHYTHM POSSIBLE LEFT ATRIAL ENLARGEMENT [-0.1mV P-WAVE IN V1/V2] BORDERLINE LEFT AXIS DEVIATION [QRS AXIS < -20] POSSIBLE LEFT VENTRICULAR HYPERTROPHY [VOLTAGE CRITERIA PLUS LAE OR QRS WIDENING] Compared to ECG 11/03/2021 14:47:07 Ventricular-paced complex(es) or rhythm no longer present Electronically Signed On 11-03-2021 22:32:33 SCIENCE TECHNICIAN by Shea David M.D. [id number]
[2021-11-03 15:19] LABS: Alanine Aminotransferase 10 U/L (0-33); Albumin Level 4.1 g/dL (3.5-5.2); Alkaline Phosphatase 78 IU/L (35-105); Aspartate Amino Transferase 33 U/L (0-32); Blood Urea Nitrogen 24 mg/dL (8-23); Calcium 9.5 mg/dL (8.5-10.5); Carbon Dioxide 24 mmol/L (22-29); Chloride 106 mmol/L (98-107); Globulin 2.4 g/dL (1.3-4.6); Glucose 95 mg/dL (65-115); Osmolality Calculated 300 mOsm/kg (285-295); Sodium 143 mmol/L (136-145); Total Bilirubin 0.3 mg/dL (0.15-1.2); Total Protein 6.5 g/dL (6.6-8.7)
[2021-11-03 15:24] LABS: Anion Gap 17.3 (5-19); Potassium 4.3 mmol/L (3.5-5.1)
[2021-11-03 17:30] LABS: Troponin 5 2HR 17.88 ng/L (0-10); Troponin 5 2HR Delta 2.88 ABS# (0-10)
[2021-11-03 18:06] VITALS: BP 138/60; PULSE 72; RESP 20; O2SAT 95
--- NOTE | 2021-11-03 18:09 | PC.NURSE ---
PACEMAKER INTERROGATED.
--- NOTE | 2021-11-03 18:37 | W.ED.GENADLT ---
HPI - General Adult General: Chief complaint: General Medical Stated complaint: LIGHT HEADED, DIZZY PT HAS PACEMAKER Time Seen by Provider: 11/03/21 17:46 Source: patient Mode of arrival: ambulatory Limitations: no limitations History of Present Illness: HPI narrative: 81-year-old female states that started having some palpitations last night she states she is actually scheduled to see her physiological chemist 08 November to have her pacemaker evaluated and she has had a pacemaker for some time and she is concerned that her pacemaker was failing she denies any chest pain currently denies any shortness of breath states that the palpitation she had is improving. Denies any worsening improving factors. Associated symptoms: Reports palpitations; Deny dyspnea, headache(s), nausea, rash or vomiting Review of Systems Const: Denies: fever(s), chills, body aches or change in appetite Eyes: Denies: blurry vision or eye discomfort ENMT: Denies: throat pain or dental pain Card: Reports: palpitations Resp: Denies: dyspnea GI: Denies: abdominal pain, nausea, vomiting or diarrhea : Denies: dysuria Musc: Denies: neck pain or back pain Skin/Breast: Denies: rash Neuro: Denies: headache(s) Psych: Denies: depression Juan/Lymph: Denies: easy bruising All/Imm: Denies: urticaria PFSH ED PFSH: Medical History Allergic rhinitis Aortic regurgitation Atrial fibrillation Hypertension Hypothyroid Pacemaker Family History Father Cancer Mother CAD (coronary artery disease) Hypertension Brother CAD (coronary artery disease) Diabetes Denies family history of Clotting disorder Dementia Chronic kidney disease (CKD) Suicide Anesthesia complication Bleeding disorder Lung disease Stroke Social History Alcohol intake: never Household members: spouse Marital status: Physical Exam Const: COMMON NORMALS: no acute distress, patient oriented x3 and healthy appearing HENMT: COMMON NORMALS: normocephalic and atraumatic HEAD & SCALP: normocephalic and atraumatic Eye: COMMON NORMALS: Equal, round and reactive pupils present and EOMs intact bilaterally PUPIL: Yes Equal, round and reactive pupils present Neck/C-Spine: COMMON NORMALS: full ROM and supple Chest: COMMONS NORMALS: normal inspection of the chest and normal palpation of entire chest wall Resp: COMMON NORMALS: normal respiratory effort, No retractions, No use of accessory muscles and clear to auscultation bilaterally AUSCULTATION: clear to auscultation bilaterally Cardio: COMMON NORMALS: regular rate, regular rhythm and No murmurs present (Cardio) RATE: regular rate RHYTHM: regular rhythm GI: COMMON NORMALS: Normal to inspection, nondistended, normoactive bowel sounds present, Soft to palpation, non-tender and no masses PALPATION: Yes Soft to palpation Extremity: COMMON NORMALS: normal to inspection and full ROM Neuro: COMMON NORMALS: patient oriented x3, moves all extremities and no focal motor deficits Psych: COMMON NORMALS: mental status grossly normal, Normal thought process present and cooperative THOUGHT PROCESS: Normal thought process present Skin: COMMON NORMALS: no rashes or lesions noted and no wounds GENERAL SKIN EXAM: no rashes or lesions noted Course Vital Signs: Vital signs: Vital Signs Temperature 98.0 F 11/03/21 12:50 Pulse Rate 72 11/03/21 18:06 Respiratory Rate 20 H 11/03/21 18:06 Blood Pressure 138/60 11/03/21 18:06 Pulse Oximetry 95 11/03/21 18:06 MDM - General Adult MDM Narrative: Medical decision making narrative: Patient presents here with some palpitations are sent here by her physiological chemist concerned about her pacemaker function we did a interrogation of spoke to her physiological chemist Dr. Ramirez he is came and seen her as well other work-up is normal she does not need emergent replacement he is going to see her in a week in his office she stable for discharge she is return if worsening. Lab Data: Labs: Lab Results 11/03/21 11/03/21 11/03/21 14:42 14:42 14:42 WBC 7.4 10^3/uL 10^3/ uL (4.0-10.0) RBC 4.14 10^6/uL 10^6 /uL (4.1-5.3) Hgb 13.1 g/dL g/dL (11.5-15.3) Hct 38.7 % % (37.0-47.0) MCV 93.5 fl fl (81-99) MCH 31.6 pg pg (28.0-34.0) MCHC 33.9 g/dL g/dL (30.0-36.0) RDW 12.2 % % (12.1-15.1) Plt Count 114 10^3/cmm L 10 ^3/cmm (130-400) MPV 9.7 fL fL (7.4-10.4) Neut % (Auto) 74.6 % % Lymph % (Auto) 16.3 % % Morris % (Auto) 6.8 % % Eos % (Auto) 1.4 % % Baso % (Auto) 0.8 % % Neut # (Auto) 5.48 10^3/uL 10^3 /uL (1.8-7.7) Lymph # (Auto) 1.2 10^3/uL 10^3/ uL (0.8-4.8) Morris # (Auto) 0.5 10^3/uL 10^3/ uL (0.2-0.9) Eos # (Auto) 0.1 10^3/uL 10^3/ uL (0.0-0.8) Baso # (Auto) 0.1 10^3/uL 10^3/ uL (0.0-0.1) Nucleated RBC % (a uto) 0 % % Nucleated RBCs # 0.0 /100WBC /100W BC Sodium 143 mmol/L mmol/L (136-145) Potassium 4.3 mmol/L mmol/L (3.5-5.1) Chloride 106 mmol/L mmol/L (98-107) Carbon Dioxide 24 mmol/L mmol/L (22-29) Anion Gap 17.3 (5-19) BUN 24 mg/dL H mg/dL (8-23) Creatinine 0.9 mg/dL mg/dL (0.5-0.9) GFR Calculation Not Reportable Glucose 95 mg/dL mg/dL (65-115) Calculated Osmolal ity 300 mOsm/kg H mOs m/kg (285-295) Calcium 9.5 mg/dL mg/dL (8.5-10.5) Total Bilirubin 0.3 mg/dL mg/dL (0.15-1.2) AST 33 U/L H U/L (0-32) ALT 10 U/L U/L (0-33) Alkaline Phosphata se 78 IU/L IU/L (35-105) Troponin T Baselin e 15 ng/L H ng/L (0-10) Troponin T 120 Min aly Delta Troponin T Total Protein 6.5 g/dL L g/dL (6.6-8.7) Albumin 4.1 g/dL g/dL (3.5-5.2) Globulin 2.4 g/dL g/dL (1.3-4.6) 11/03/21 16:56 WBC RBC Hgb Hct MCV MCH MCHC RDW Plt Count MPV Neut % (Auto) Lymph % (Auto) Morris % (Auto) Eos % (Auto) Baso % (Auto) Neut # (Auto) Lymph # (Auto) Morris # (Auto) Eos # (Auto) Baso # (Auto) Nucleated RBC % (a uto) Nucleated RBCs # Sodium Potassium Chloride Carbon Dioxide Anion Gap BUN Creatinine GFR Calculation Glucose Calculated Osmolal ity Calcium Total Bilirubin AST ALT Alkaline Phosphata se Troponin T Baselin e Troponin T 120 Min aly 17.88 ng/L H ng/L (0-10) Delta Troponin T 2.88 ABS# ABS# (0-10) Total Protein Albumin Globulin Discharge Plan Discharge Patient Disposition: Home Clinical Impression: Heart palpitations Condition: Stable Prescriptions: No Action metoprolol tartrate 100 mg tablet 100 mg PO .PM Qty: 90 RF: 3 metoprolol tartrate 50 mg tablet 50 mg PO .AM Qty: 90 RF: 3 cholecalciferol (vitamin D3) 25 mcg (1,000 unit) capsule 25 mcg PO DAILY RF: 0 multivitamin Tablet 1 tab PO DAILY RF: 0 silver biotics 1 tbsp PO DAILY RF: 0 fluticasone propionate [Flonase Allergy Relief] 50 mcg/actuation spray,suspension 1 spray INTRANASAL BID RF: 0 chromium picolinate 1,000 mcg tablet 1,000 mcg PO DAILY RF: 0 selenium 200 mcg capsule 200 mcg PO DAILY RF: 0 biotin 5,000 mcg tablet, sublingual 5,000 mcg SUBLINGUAL DAILY RF: 0 potassium gluconate 595 mg (99 mg) tablet 595 mg PO DAILY RF: 0 magnesium oxide 400 mg magnesium tablet 400 mg PO DAILY RF: 0 levothyroxine 75 mcg capsule 75 mcg PO DAILY RF: 0 calcium-vitamin D3-vitamin K [Viactiv] 650 mg-12.5 mcg-40 mcg tablet,chewable 1 tab PO DAILY RF: 0 Discharge Orders: Discharge ED (Routine); Ordered 11/03/21 Ordered By: Wilian Urbina Referrals: Ana Rosa Ramirez MD [Physician] - 1-3 days Chucky Noland MD [Primary Care Provider] - Discharge Diet: Advance as tolerated Discharge Activity: Resume usual activity Patient Instructions: Heart Palpitations (ED) Coding Level of Care Code 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
[2021-11-03 19:00] VITALS: BP 108/74; O2SAT 96
[2021-11-03 19:08] VITALS: BP 108/74; O2SAT 96
== END 2021-11-03 19:05 | disposition home or self-care (01) ==
PROVIDERS: Physician Assistant; Emergency Provider Emergency Medicine; PCP Family Medicine
DX: R00.2 Palpitations (principal); I10 Essential (primary) hypertension; Z95.0 Presence of cardiac pacemaker
CPT/HCPCS: 71045; 80053; 84484; 85025; 93005; 99283

== ENCOUNTER → 2021-11-06 08:50 | Outpatient (BNVA) | payer MEDICARE, OTHER, SELFPAY | PROVIDERS: PCP Family Medicine; Visit Provider Internal Medicine Cardiovascular Disease | DX: R00.2 Palpitations (principal); Z95.0 Presence of cardiac pacemaker; I48.0 Paroxysmal atrial fibrillation; I10 Essential (primary) hypertension; Z20.828 Contact with and (suspected) exposure to other viral communicable diseases | CPT/HCPCS: 80048; 83880; 85025; 85610; 86850; 86900; 87635 ==

== ENCOUNTER 2021-11-11 06:00 | Outpatient (CLI) | payer MEDICARE, OTHER, SELFPAY ==
[2021-11-11] VITALS (14 sets, daily range): BP systolic 158–196; BP diastolic 61–94; PULSE 58–67; RESP 16–96; TEMP 36.4–36.9; O2SAT 94–99; BMI 23.0
--- NOTE | 2021-11-11 07:10 | PM.HP ---
Providers/Chief Complaint Admitting Physician: NAIN Ramirez Primary Care Provider: Chucky Noland MD Chief Complaint: [id number] History of Present Illness Destiny Dow is a 81 year old female with a history of atrial fibrillation and symptomatic bradycardia, has a permanent pacemaker. She was found to be in WESTLEY during her recent evaluation. Pacemaker revision was recommended, for further management of her condition. This patient also is known to have hypertension, hypothyroidism, aortic dilatation and varicose veins. She hasn't had any chest pain or chest tightness. No unusual shortness of breath. She has a occasional palpitation. No dizziness or syncopal episode. Denies any other specific complaints at this time. She has multiple drug allergies including Keflex. She is not allergic to the mycins. Review of Systems Narrative: CONSTITUTIONAL: No fever or chills. EYES: No blurring of vision or other visual disturbances lately. ENT: No hoarseness of voice, auditory disturbances or sore throat. CARDIOVASCULAR: As mentioned above. RESPIRATORY: No significant cough. GASTROINTESTINAL: No hematemesis or melena. GENITOURINARY: No dysuria or hematuria. INTEGUMENTARY: No skin rashes or history of skin cancer. NEURO: No transient ischemic attacks or amaurosis. PSYCHIATRIC: No history of psychosis or major depression. HEMATOLOGIC: No bleeding disorders or significant anemia. ENDOCRINE: No history of polyuria or polydipsia. MUSCULOSKELETAL: No recent joint pain or swelling. ALLERGY/IMMUNOLOGY: As mentioned above. Medications/Allergies Home Medications Medication Instructions Recorded Confirmed Last Taken Type biotin 5,000 mcg sublingual tablet 5,000 mcg SUBLINGUAL DAILY 03/19/20 11/10/21 11/11/21 06:00 History cholecalciferol (vitamin D3) 25 25 mcg PO DAILY 03/19/20 11/10/21 11/11/21 06:00 History mcg (1,000 unit) capsule chromium picolinate 1,000 mcg 1,000 mcg PO DAILY 03/19/20 11/10/21 11/11/21 06:00 History tablet fluticasone propionate 50 1 spray INTRANASAL BID 03/19/20 11/10/21 11/10/21 06:00 History mcg/actuation nasal spray,suspension levothyroxine 75 mcg capsule 75 mcg PO DAILY 03/19/20 11/10/21 11/10/21 06:00 History magnesium oxide 400 mg PO DAILY 03/19/20 11/10/21 11/11/21 06:00 History multivitamin 1 tab PO DAILY 03/19/20 11/10/21 11/11/21 06:00 History potassium gluconate 595 mg (99 mg) 595 mg PO DAILY 03/19/20 11/10/21 11/11/21 06:00 History tablet selenium 200 mcg capsule 200 mcg PO DAILY 03/19/20 11/10/21 11/11/21 06:00 History silver biotics 1 tab PO DAILY 03/19/20 11/10/21 Unknown History calcium 650 mg-vitamin D3 12.5 1 tab PO DAILY tab 05/07/21 11/10/21 11/10/21 06:00 History mcg-vitamin K 40 mcg chewable tablet metoprolol tartrate 100 mg tablet 100 mg PO .PM #90 tab 05/08/21 11/11/21 11/10/21 21:00 Rx metoprolol tartrate 50 mg tablet 50 mg PO .AM #90 tab 05/08/21 11/10/21 11/10/21 06:00 Rx Allergies Allergy/AdvReac Type Severity Reaction Status Date / Time cephalexin [From Keflex] Allergy Unknown unknown Verified 11/10/21 14:25 doxycycline Allergy Unknown unknown Verified 11/10/21 14:25 naldemedine Allergy Unknown unknown Verified 11/10/21 14:25 Sulfa (Sulfonamide Allergy Unknown unknown Verified 11/10/21 14:25 Antibiotics) amlodipine Allergy unknown Verified 11/10/21 14:25 carvedilol Allergy unknown Verified 11/10/21 14:25 moxifloxacin [From Avelox] Allergy unknown Verified 11/10/21 14:25 naproxen Allergy unknown Verified 11/10/21 14:25 olmesartan Allergy unknown Verified 11/10/21 14:25 PFSH Acute PFSH: Medical History Allergic rhinitis Aortic regurgitation Atrial fibrillation Hypertension Hypothyroid Pacemaker Family History Father Cancer Mother CAD (coronary artery disease) Hypertension Brother CAD (coronary artery disease) Diabetes Denies family history of Clotting disorder Dementia Chronic kidney disease (CKD) Suicide Anesthesia complication Bleeding disorder Lung disease Stroke Social History Alcohol intake: never Household members: spouse Marital status: Vitals/I&O/Wt Last Vital Signs Temp 97.7 F 11/11/21 06:00 Pulse 65 11/11/21 06:00 Resp 16 11/11/21 06:00 BP 173/94 11/11/21 06:00 Pulse Ox 99 11/11/21 06:00 Weight last 48 hrs Weight 126 lb Weight 126 lb Physical Exam Narrative: EXAM NARRATIVE: GENERAL: The patient is alert and oriented times three. Not in any acute distress. HEENT: No significant pallor, icterus or lymphadenopathy.Oral cavity: There are no mucous membrane lesions. NECK: Trachea appears to be central. No masses noted. No JVD or thyromegaly appreciated. RESPIRATORY: Chest is symmetrical. No intercostals muscle retraction or any accessory muscle activation. There is no chest wall tenderness. Breath sounds are heard bilaterally. No rales or rhonchi heard. No evidence of any consolidation. BREASTS: Deferred. HEART: The heart sounds are normal. No S3 or S4. Short systolic murmur in the left sternal border. No diastolic murmurs.. No pericardial rub ABDOMEN: No vessel pulsations or distention. No tenderness. No organomegaly appreciated. Bowel sounds are normally heard. : Deferred. RECTAL: Deferred. LYMPHATIC: No lymphadenopathy noted in the neck or groin. EXTREMITIES: No edema or cyanosis. No clubbing. MUSCULOSKELETAL: No acute joint deformities or swelling SKIN: There are no significant rashes or ecchymosis NEUROPSYCHIATRIC: The patient is alert and oriented x3. Appears to be in a good mood. No tremors or rigidity noted. A&P Assessment and plan (1) Elective replacement indicated for cardiac pacemaker battery at end of lifespan: For further management of her condition, she requires a pacemaker revision. This was discussed with the patient in detail. The risk of bleeding, hematoma, vascular injury,infection, and other concomitant complications were explained in detail. The patient understood this well and consented to proceed. Status: Acute (2) Aortic regurgitation: Clinically stable Status: Acute Qualifiers: Cardiac valve disease etiology: nonrheumatic Qualified Code(s): I35.1 - Nonrheumatic aortic (valve) insufficiency (3) Atrial fibrillation: Patient has a bleeding tendency. She is not on any anticoagulation. Atrial fibrillation is intermittent. Currently seems to be in a regular rhythm. Status: Acute Qualifiers: Atrial fibrillation type: paroxysmal Qualified Code(s): I48.0 - Paroxysmal atrial fibrillation (4) Hypertension: Patient hasn't taken the blood pressure medicine this morning. Currently the blood pressure is stage II. We will be closely monitoring the blood pressure. Status: Acute Qualifiers: Hypertension type: essential hypertension Qualified Code(s): I10 - Essential (primary) hypertension (5) Hypothyroid: Clinically euthyroid Status: Acute Qualifiers: Hypothyroidism type: acquired Qualified Code(s): E03.9 - Hypothyroidism, unspecified Attestations Medical Necessity Statement*: Patient will be admitted to hospital for IV antibiotics. Discharge home tomorrow Coding Level of Care Code Acute Electrical Construction Project Manager for [facility] Fwd Medical Decision Making Moderate Complexity Diagnoses Elective replacement indicated for cardiac pacemaker battery at end of lifespan Z45.010 Aortic regurgitation I35.1 Cardiac valve disease etiology: nonrheumatic Atrial fibrillation I48.0 Atrial fibrillation type: paroxysmal Hypertension I10 Hypertension type: essential hypertension Hypothyroid E03.9 Hypothyroidism type: acquired
--- NOTE | 2021-11-11 07:16 | W.PM.OPSUD ---
Surgery/Procedure H&P Update DATE OF PROCEDURE: November 11, 2021 DATE H&P PERFORMED: 11/11/21 H&P UPDATE INFORMATION: I have reviewed H&P completed within last 30 days and I have examined patient prior to procedure PREOP DIAGNOSIS: Pacemaker WESTLEY PRIMARY INDICATION FOR PROCEDURE: Patient with atrial fibrillation and symptomatic bradycardia. Pacemaker WESTLEY PLANNED PROCEDURE: Operation Date: 11/11/21 07:00 Proposed Procedures p Pacemaker Generator Change(Left) - Ana Rosa Ramirez MD PATIENT REASSESSED PRIOR TO SEDATION, WITH NO CHANGE NOTED: Yes PHYSICAL EXAM: alert, oriented x 3, clear to auscultation bilaterally and regular rate & rhythm AIRWAY EVAL/ANESTHESIA PLAN: normal airway, see other exam findings, ASA II, Monitored Anesthesia, Local Anesthesia, Risks, benefits & alternatives of sedation and/or procedure discussed and Patient agrees to continue as planned
--- NOTE | 2021-11-11 08:11 | P.OP_ITS ---
Operative Report Date of procedure: November 11, 2021 Pre-op Diagnosis: Pacemaker WESTLEY Procedure: PROCEDURE: PACEMAKER REVISION PREOPERATIVE DIAGNOSIS: Pacemaker elective replacement indication. POSTOPERATIVE DIAGNOSIS: Pacemaker elective replacement indication. ESTIMATED BLOOD LOSS: None COMPLICATIONS: None. BRIEF HISTORY: The patient is 81-year-old white female who had a permanent pacemaker implantation for symptomatic bradycardia/intermittent atrial fi brillation. The patient was found to have elective replacement indication, during routine office followup evaluation. For further management of patient's condition for the symptomatic bradycardia, the patient required a pacemaker revision. Patient required a dual-chamber pacemaker for symptom relief and the need for AV synchrony The procedure was explained to the patient and her in detail with the risks and benefits. The risks of bleeding, hematoma, vascular injury, infection and other concomitant complications were explained in detail, which the patient understood well and consented to proceed. PROCEDURES PERFORMED: 1. Explantation of the old pacemaker generator. 2. Implantation of the new generator. The patient brought to the Cardiac Crop Consultant. The left side of the neck and the subclavian area were cleaned and draped in a sterile fashion. 1% Xylocaine was used for local anesthetic agent. A 2 inch long incision was made just below the previous pacemaker scar. By sharp and blunt dissection, the pacemaker pocket was accessed. The old generator was delivered from the pocket. The generator was detached from the lead. The new Medtronic generator was attached to the lead. T he pacemaker pocket was copiously irrigated with vancomycin solution. Complete hemostasis was achieved. The lead was positioned behind the generator and the generator was attached to the pectoralis fascia by suturing with 0 Surgilon. Sponge counts were confirmed. The pacemaker pocket was closed in layers. Skin was approximated using 4-0 Vicryl. EXPLANTED DEVICE: Pacemaker Generator: Brand: Medtronic. Model number: [id number]. Serial number: [id number]. Date of implant: 04/25/2012 IMPLANTED DEVICES: Ventricular Lead: Date of implantation: 04/25/2012 Model number: [id number] Serial number: [id number] Make: Medtronic. Atrial lead Date of implantation: 04/25/2012 Model number: [id number] Serial number: [id number] Make: Medtronic. Implanted Generator: Date of implantation : 11/11/2021 Brand: Renetta JAMES Meng. Model number: [id number] Serial number: [id number] Make: Medtronic Stimulation Threshold: The ventricular sensing was 8.7 millivolts. Ventricular lead impedance was 510 ohms and the pacing threshold was 0.5 volts at 0.5 milliseconds. The atrial sensing was 2.6 millivolts. Atrial lead impedance was 380 ohms and the pacing threshold was .75 volts at 0.5 milliseconds. The pacemaker was set for AAIR /DDDR mode with an upper rate of 130 and a lower rate of 60. A pressure dressing was applied over the pacemaker site. The patient was transferred back to medical floor in stable condition. Sponge counts were correct.
[2021-11-11] MEDS: metoprolol tartrate 50 mg Tablet 100 MG PO ×2 (09:00→18:08)
[2021-11-11] MEDS: hyDRALAzine 50 mg Tablet PO (13:44)
[2021-11-11] MEDS: sodium chloride 0.9% 1,000 ML 75 ML IV (18:08)
[2021-11-11] MEDS: cloNIDine 0.1 mg Tablet 0.2 MG PO (23:40)
[2021-11-12] VITALS (7 sets, daily range): BP systolic 136–186; BP diastolic 66–82; PULSE 59–64; RESP 16–18; TEMP 36.4–36.9; O2SAT 96–99
--- NOTE | 2021-11-12 06:00 | ECG_ITS ---
[facility] Test Date: 2021-11-12 Pat Name: Destiny Dow Department: Room: 264 Gender: Female Emergency Doctor: : 1940 Requested By: Ana Rosa Ramirez Order Number: [id number] Luke MD: Shea David M.D. Measurements Intervals [place] Rate: 60 P: 85 AR: 146 QRS: -1 QRSD: 93 T: -38 QT: 415 QTc: 417 Interpretive Statements ELECTRONIC ATRIAL PACEMAKER ST DEVIATION AND MODERATE T-WAVE ABNORMALITY, CONSIDER LATERAL ISCHEMIA [-0.1+ mV T WAVE IN I/aVL/V5/V6] Compared to ECG 11/03/2021 17:55:14 T-wave abnormality now present Possible ischemia now present Sinus rhythm no longer present Electronically Signed On 11-13-2021 22:06:09 [facility] by Shea David M.D. [id number]
[2021-11-12] MEDS: multivitamin therapeutic Tablet 1 TAB PO (08:16)
[2021-11-12] MEDS: metoprolol tartrate 50 mg Tablet PO (08:16)
[2021-11-12] MEDS: magnesium oxide 400 mg tablet PO (08:16)
[2021-11-12] MEDS: levothyroxine 75 mcg Tablet PO (08:16)
[2021-11-12] MEDS: cholecalciferol (vitamin D3) 1,000 unit Tablet 1000 UNIT PO (08:16)
[2021-11-12] MEDS: vancomycin 1,000 MG in sodium chloride 0.9% 250 ML 250 MG IV (08:27)
--- NOTE | 2021-11-12 10:32 | PC.CHAP ---
Pastoral Care Encounter/Spiritual Assessment Type of Contact [] Declined clinic office assistant visit [] Patient/Family/Request visit [] Outpatient visit [] Follow-up visit [] Physician referral [] Code/Alert [x] Routine visit [] Staff referral [] Actively dying [] Patient sleeping [] Family support [] [] Out of room [] Palliative care [] [] Receiving care in room [] Pre-surgical visit [] Trauma [] Long length of stay [] ICU visit [] Other: Relational/Emotional Strength [x] Patient feels connected with others/family/visitors/staff [] Distress [] Loneliness/isolation [] Abandonment Spirituality of Patient [x] Person of Princess [x] Attends Catholic of their Princess [x] Believes in Prayer [x] Reads Bible or Catholic materials [] There are Spiritual issues to be addressed 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 Interventions [x] Prayer [x] Active listening [x] Non-anxious presence [x] Spiritual/emotional support [] Crisis/trauma care [] Spiritual counseling [] Bereavement support [] Provided bereavement packet [] Provided Bible/devotional materials [] Provided toy/stuffed animal, coloring book to patient or family member [] Provided Communion [] Anointing/[employer] []x Salvation [] Completed spiritual assessment [] Other: Impact on Illness or Injury [] Angry [] Fearful [] Anxious [] Often cries [] Exhaustion [] Unable to work [] Unable to attend zoroastrianism [] Unable to walk/stand [] Unable to read [] Unable to drive [] Unable to eat/drink [] Unable to sleep [] Unable to be with family [] Patient intubated [] Other: Summary Time spent with patient 10 min
== END 2021-11-12 12:54 | disposition home or self-care (01) ==
LOC: CCL 06:06 → MEDSURG 08:20
PROVIDERS: PCP Family Medicine; Visit Provider Internal Medicine Cardiovascular Disease
DX: Z45.010 Encounter for checking and testing of cardiac pacemaker pulse generator [battery] (principal); I10 Essential (primary) hypertension; E03.9 Hypothyroidism, unspecified; Z82.49 Family history of ischemic heart disease and other diseases of the circulatory system; Z83.3 Family history of diabetes mellitus
CPT/HCPCS: 33213; 36415; 93005; 97165; C1769; C1786; J2250; J3010; J7030; J7050

== ENCOUNTER → 2022-01-12 13:39 | Outpatient (BNVA) | payer MEDICARE, OTHER, SELFPAY | PROVIDERS: PCP Family Medicine; Visit Provider Internal Medicine Cardiovascular Disease | DX: I35.1 Nonrheumatic aortic (valve) insufficiency (principal); I48.0 Paroxysmal atrial fibrillation; I10 Essential (primary) hypertension; E03.9 Hypothyroidism, unspecified; Z95.0 Presence of cardiac pacemaker | CPT/HCPCS: 99214 ==

== ENCOUNTER → 2022-02-20 09:02 | Outpatient (BNVA) | payer MEDICARE, OTHER, SELFPAY | PROVIDERS: PCP Family Medicine; Visit Provider Internal Medicine Cardiovascular Disease | DX: Z45.010 Encounter for checking and testing of cardiac pacemaker pulse generator [battery] (principal) | CPT/HCPCS: 93280 ==

== ENCOUNTER → 2022-05-22 09:02 | Outpatient (BNVA) | payer MEDICARE, SELFPAY | PROVIDERS: PCP Family Medicine; Visit Provider Internal Medicine Cardiovascular Disease | DX: Z45.010 Encounter for checking and testing of cardiac pacemaker pulse generator [battery] (principal) | CPT/HCPCS: 93280 ==

== ENCOUNTER → 2022-05-28 07:54 | Outpatient (BNVA) | payer MEDICARE, SELFPAY | PROVIDERS: PCP Family Medicine; Visit Provider Family Medicine | DX: R53.83 Other fatigue (principal); I10 Essential (primary) hypertension | CPT/HCPCS: 80053; 83880; 84443; 85025 ==

== ENCOUNTER 2022-07-09 08:38 | Outpatient (CLI) | payer MEDICARE, OTHER, SELFPAY ==
--- NOTE | 2022-07-09 08:45 | USCV_ITS ---
Destiny Dow Age: 82 Gender: F : 1940 Exam Date: 07/09/2022 08:56 Ordering Phys: Chucky Noland MD Technologist: Kel Robin [place]am [place] [facility] [place]ication: BP: 130 / 80 HR: 73 Rhythm: Sinus Technical Quality: Adequate MEASUREMENTS (Male / Female) Normal Values 2D ECHO LV Diastolic Diameter PLAX 3.8 cm 4.2 - 5.9 / 3.9 - 5.3 cm LV Systolic Diameter PLAX 2.0 cm IVS Diastolic Thickness 1.0 cm 0.6 - 1.0 / 0.6 - 0.9 cm IVS Systolic Thickness 1.1 cm LVPW Diastolic Thickness 0.9 cm 0.6 - 1.0 / 0.6 - 0.9 cm LVPW Systolic Thickness 1.1 cm LVOT Diameter 2.0 cm LV Ejection Fraction 2D Teich 72.8 % LV Ejection Fraction MOD 2C 70.4 % LV Ejection Fraction 2C AL 73.2 % LA Diameter 3.7 cm IVC Diameter 0.8 cm M-MODE Aortic Annulus Diameter 3.3 cm LA Ao Ratio MM 1.3 MV E Point Septal Separation 1.0 cm DOPPLER AV Peak Velocity 357.0 cm/s LVOT Peak Velocity 101.0 cm/s AV Area Cont Eq vti 0.9 cm squared AV Area Cont Eq pk 0.9 cm squared MV Area PHT 2.5 cm squared Mitral E to A Ratio 0.7 MV E' Velocity 49.4 cm/s Mitral E to MV E' Ratio 7.5 Mitral E to LV E' Lateral Ratio 7.0 Mitral E to LV E' Septal Ratio 8.2 TR Peak Velocity 282.0 cm/s TR Peak Gradient 31.8 mmHg TV Peak E Velocity 66.0 cm/s Right Atrial Pressure 3.0 mmHg Pulmonary Artery Systolic Pressu 34.8 mmHg RV Acceleration Time 0.2 s FINDINGS Left Ventricle Normal left ventricular size and systolic function, EF 66 %. Moderate concentric left ventricular hypertrophy. No regional wall motion abnormalities. Grade I/IV diastolic dysfunction (abnormal relaxation filling pattern), normal to mildly elevated filling pressures. Right Ventricle The right ventricle is normal in size and function. Right Atrium The right atrium is normal in size. Left Atrium Mildly increased left atrial size. Mitral Valve Thickened mitral valve. Mild mitral annular calcification. Mild mitral valve regurgitation. Aortic Valve Trace aortic valve regurgitation. Severe low gradient aortic valve stenosis with a valve area of 0.9 cm squared. Peak velocity of 3.86 m/s with a peak gradient of 61 and a mean gradient of 25 mmHg Tricuspid Valve Mild tricuspid valve regurgitation. Pulmonic Valve No gross abnormalities noted Pericardium Normal pericardium without effusion. Aorta Normal aortic annulus size. IVC Normal inferior vena cava. CONCLUSIONS Normal left ventricular size and systolic function, EF 66 %. Moderate concentric left ventricular hypertrophy. No regional wall motion abnormalities. Grade I/IV diastolic dysfunction (abnormal relaxation filling pattern), normal to mildly elevated filling pressures. Severe low gradient aortic valve stenosis with a valve area of 0.9 cm squared. Peak velocity of 3.86 m/s with a peak gradient of 61 and a mean gradient of 25 mmHg. Trace aortic valve regurgitation. Thickened mitral valve. Mild mitral annular calcification. Mild mitral valve regurgitation. Mild tricuspid valve regurgitation. Estimated pulmonary artery peak systolic pressure 35 mmHg Mildly increased left atrial size. There is no pericardial effusion. Compared to the study from December 2015, there is development of aortic valve stenosis Dr Ana Rosa Ramirez MD [facility] (Electronically Signed) Final Date: 09 July 2022 15:05 S
== END 2022-07-09 08:39 | disposition home or self-care (01) ==
LOC: RAD 08:39
PROVIDERS: PCP Family Medicine; Visit Provider Family Medicine
DX: I48.91 Unspecified atrial fibrillation (principal); I11.0 Hypertensive heart disease with heart failure; Z95.0 Presence of cardiac pacemaker; I08.3 Combined rheumatic disorders of mitral, aortic and tricuspid valves
CPT/HCPCS: 93306; 99214

== ENCOUNTER 2022-09-07 01:00 | Outpatient (CLI) | payer MEDICARE, OTHER, SELFPAY | END 2022-09-07 22:07 | disposition home or self-care (01) | LOC: RAD 09-22 22:07 | PROVIDERS: PCP Family Medicine; Visit Provider Internal Medicine Cardiovascular Disease | DX: I48.0 Paroxysmal atrial fibrillation (principal); I35.1 Nonrheumatic aortic (valve) insufficiency; I10 Essential (primary) hypertension; E03.9 Hypothyroidism, unspecified; Z95.0 Presence of cardiac pacemaker | CPT/HCPCS: 99214 ==

== ENCOUNTER → 2022-09-25 08:55 | Outpatient (BNVA) | payer MEDICARE, OTHER, SELFPAY | PROVIDERS: PCP Family Medicine; Visit Provider Internal Medicine Cardiovascular Disease | DX: Z45.010 Encounter for checking and testing of cardiac pacemaker pulse generator [battery] (principal) | CPT/HCPCS: 93280 ==

== ENCOUNTER 2022-10-26 11:06 | Outpatient (CLI) | payer MEDICARE, OTHER, SELFPAY ==
--- NOTE | 2022-10-26 11:22 | USCV_ITS ---
Destiny Dow Age: 82 Gender: F : 1940 Exam Date: 10/26/2022 11:44 Ordering Phys: Ana Rosa Ramirez MD ([email or web address]) Technologist: Kel Robin Exam Location: [facility] – [place] Indication: as BP: 130 / 73 HR: 63 Rhythm: Sinus Technical Quality: Adequate MEASUREMENTS (Male / Female) Normal Values 2D ECHO LV Diastolic Diameter PLAX 3.1 cm 4.2 - 5.9 / 3.9 - 5.3 cm LV Systolic Diameter PLAX 1.9 cm IVS Diastolic Thickness 1.3 cm 0.6 - 1.0 / 0.6 - 0.9 cm IVS Systolic Thickness 1.6 cm LVPW Diastolic Thickness 0.9 cm 0.6 - 1.0 / 0.6 - 0.9 cm LVPW Systolic Thickness 1.4 cm LVOT Diameter 2.0 cm LV Ejection Fraction 2D Teich 71.8 % LV Ejection Fraction MOD 2C 80.0 % LV Ejection Fraction 2C AL 80.2 % LA Diameter 3.0 cm M-MODE Aortic Annulus Diameter 2.9 cm LA Ao Ratio MM 1.1 MV E Point Septal Separation 1.2 cm DOPPLER AV Peak Velocity 427.7 cm/s LVOT Peak Velocity 100.3 cm/s AV Area Cont Eq vti 0.8 cm squared AV Area Cont Eq pk 0.7 cm squared MV Area PHT 5.0 cm squared Mitral E to A Ratio 0.8 MV E' Velocity 103.0 cm/s FINDINGS Left Ventricle Moderate left ventricular hypertrophy. Normal left ventricular size and systolic function, EF 74 %. No regional wall motion abnormalities. Grade I/IV diastolic dysfunction (abnormal relaxation filling pattern), normal to mildly elevated filling pressures. Right Ventricle Normal right ventricular size and systolic function. Pacemaker wire is noted Right Atrium Normal right atrial size. Pacemaker wire is noted Left Atrium Mildly increased left atrial size. Mitral Valve Thickened mitral valve. Moderate mitral annular calcification. Aortic Valve Severe aortic valve stenosis, mean gradient 37 mmHg, NICK 0.75 cm squared. Velocity of 4.29 m/s with a peak gradient of 74 mmHg . The valve area index of 0.48 Tricuspid Valve No gross abnormalities noted Pulmonic Valve Pulmonic valve not well visualized. Pericardium No pericardial effusion. Aorta Normal aortic annulus size. IVC Inferior vena cava not visualized. CONCLUSIONS Severe aortic valve stenosis, mean gradient 37 mmHg, NICK 0.75 cm squared. Velocity of 4.29 m/s with a peak gradient of 74 mmHg . The valve area index of 0.48. Moderate left ventricular hypertrophy. Normal left ventricular size and systolic function, EF 74 %. No regional wall motion abnormalities. Grade I/IV diastolic dysfunction (abnormal relaxation filling pattern), normal to mildly elevated filling pressures. Mildly increased left atrial size. Thickened mitral valve. Moderate mitral annular calcification. There is no pericardial effusion. There are no intracardiac masses. Compared to the study from 07/09/2022, there is worsening of the aortic valve stenosis Dr Ana Rosa Ramirez MD [facility] (Electronically Signed) Final Date: 28 October 2022 19:20 S
== END 2022-10-26 11:07 | disposition home or self-care (01) ==
LOC: RAD 11:15
PROVIDERS: PCP Family Medicine; Visit Provider Internal Medicine Cardiovascular Disease
DX: I35.0 Nonrheumatic aortic (valve) stenosis (principal)
CPT/HCPCS: 93308; 93325

== ENCOUNTER → 2023-02-03 10:04 | Outpatient (BNVA) | payer MEDICARE, OTHER, SELFPAY | PROVIDERS: PCP Family Medicine; Visit Provider Family Medicine | DX: I35.0 Nonrheumatic aortic (valve) stenosis (principal); E03.9 Hypothyroidism, unspecified; I48.91 Unspecified atrial fibrillation; I10 Essential (primary) hypertension | CPT/HCPCS: 80048; 85025 ==

== ENCOUNTER → 2023-02-17 09:34 | Outpatient (BNVA) | payer MEDICARE, OTHER, SELFPAY | PROVIDERS: PCP Family Medicine; Visit Provider Family Medicine | DX: E03.9 Hypothyroidism, unspecified (principal); I10 Essential (primary) hypertension; D64.9 Anemia, unspecified | CPT/HCPCS: 85025 ==

== ENCOUNTER → 2023-03-16 10:20 | Outpatient (BNVA) | payer MEDICARE, OTHER, SELFPAY | PROVIDERS: PCP Family Medicine; Visit Provider Internal Medicine Cardiovascular Disease | DX: R06.02 Shortness of breath (principal); I10 Essential (primary) hypertension; I48.0 Paroxysmal atrial fibrillation; Z95.2 Presence of prosthetic heart valve; D64.9 Anemia, unspecified; Z95.0 Presence of cardiac pacemaker; E03.9 Hypothyroidism, unspecified | CPT/HCPCS: 36415; 80048; 83880; 99214 ==

== ENCOUNTER → 2023-03-31 11:46 | Outpatient (BNVA) | payer MEDICARE, OTHER, SELFPAY | PROVIDERS: PCP Family Medicine; Visit Provider Family Medicine | DX: D64.9 Anemia, unspecified (principal); Z95.2 Presence of prosthetic heart valve; I10 Essential (primary) hypertension | CPT/HCPCS: 80048; 85025 ==

== ENCOUNTER 2023-04-15 09:00 | Outpatient (CLI) | payer MEDICARE, OTHER, SELFPAY ==
[2023-04-15 09:51] LABS: Alanine Aminotransferase 14 U/L (0-33); Albumin Level 4.1 g/dL (3.5-5.2); Alkaline Phosphatase 77 U/L (35-105); Anion Gap 12.6 (5-19); Aspartate Amino Transferase 38 U/L (0-32); Blood Urea Nitrogen 32 mg/dL (8-23); Calcium 9.4 mg/dL (8.5-10.5); Carbon Dioxide 31 mmol/L (22-29); Chloride 98 mmol/L (98-107); Globulin 1.9 g/dL (1.3-4.6); Glucose 88 mg/dL (65-115); NT Pro B Type Natriuretic Pept 1136 pg/mL (0-450); Osmolality Calculated 292 mOsm/kg (285-295); Potassium 3.6 mmol/L (3.5-5.1); Sodium 138 mmol/L (136-145); Total Bilirubin 0.5 mg/dL (0.15-1.2)
--- NOTE | 2023-05-14 10:24 | PM.PROC ---
Other Information: Patient had an echocardiogram done on 03/02/2023 Coding Level of Care Code Acute Code for Chg Fwd
== END 2023-04-15 09:01 | disposition home or self-care (01) ==
LOC: LAB 09:05
PROVIDERS: PCP Family Medicine; Visit Provider Internal Medicine Cardiovascular Disease
DX: R06.02 Shortness of breath (principal); D64.9 Anemia, unspecified; Z95.2 Presence of prosthetic heart valve
CPT/HCPCS: 36415; 80053; 83880

== ENCOUNTER → 2023-05-31 15:37 | Outpatient (BNVA) | payer MEDICARE, OTHER, SELFPAY | PROVIDERS: PCP Family Medicine; Visit Provider Family Medicine | DX: R06.02 Shortness of breath (principal); D64.9 Anemia, unspecified; Z95.2 Presence of prosthetic heart valve; I10 Essential (primary) hypertension | CPT/HCPCS: 80048; 83880; 85025 ==

== ENCOUNTER → 2023-06-17 14:16 | Outpatient (BNVA) | payer MEDICARE, OTHER, SELFPAY | PROVIDERS: PCP Family Medicine; Visit Provider Family Medicine | DX: I10 Essential (primary) hypertension (principal); I48.91 Unspecified atrial fibrillation; E87.1 Hypo-osmolality and hyponatremia; D69.6 Thrombocytopenia, unspecified | CPT/HCPCS: 80048; 85025 ==

== ENCOUNTER → 2023-09-21 08:02 | Outpatient (BNVA) | payer MEDICARE, OTHER, SELFPAY | PROVIDERS: PCP Family Medicine; Visit Provider Family Medicine | DX: D69.6 Thrombocytopenia, unspecified (principal); D64.9 Anemia, unspecified; E03.9 Hypothyroidism, unspecified; I10 Essential (primary) hypertension; I48.91 Unspecified atrial fibrillation; Z95.2 Presence of prosthetic heart valve | CPT/HCPCS: 80053; 80061; 84443; 85025 ==

== ENCOUNTER → 2023-09-28 09:32 | Outpatient (BNVA) | payer MEDICARE, OTHER, SELFPAY | PROVIDERS: PCP Family Medicine; Visit Provider Internal Medicine Cardiovascular Disease | DX: Z95.2 Presence of prosthetic heart valve (principal); Z95.0 Presence of cardiac pacemaker; E03.9 Hypothyroidism, unspecified; I10 Essential (primary) hypertension; I48.0 Paroxysmal atrial fibrillation; D69.6 Thrombocytopenia, unspecified | CPT/HCPCS: 99214 ==

== ENCOUNTER 2023-10-18 13:20 | Outpatient (CLI) | payer MEDICARE, OTHER, SELFPAY ==
--- NOTE | 2023-10-18 13:45 | USCV_ITS ---
Destiny Dow Age: 83 Gender: F : 1940 Exam Date: 10/18/2023 13:48 Ordering Phys: Ana Rosa Ramirez MD ([email or web address]) Technologist: CT Exam Location: [facility] Indication: avr BP: 157 / 75 HR: 54 Rhythm: Sinus Technical Quality: Adequate MEASUREMENTS (Male / Female) Normal Values 2D ECHO LVOT Diameter 2.1 cm LV Ejection Fraction MOD 2C 48.3 % LV Ejection Fraction 2C AL 46.6 % LA Diameter 3.3 cm LA Width 1.7 cm IVC Diameter 1.3 cm M-MODE MV E Point Septal Separation 0.9 cm DOPPLER AV Peak Velocity 179.0 cm/s LVOT Peak Velocity 105.0 cm/s AV Area Cont Eq vti 2.1 cm squared AV Area Cont Eq pk 2.0 cm squared MV Area PHT 3.5 cm squared Mitral E to A Ratio 1.1 MV E' Velocity 71.5 cm/s Mitral E to MV E' Ratio 20.4 Mitral E to LV E' Lateral Ratio 17.3 Mitral E to LV E' Septal Ratio 24.9 TR Peak Velocity 304.0 cm/s TR Peak Gradient 37.0 mmHg TV Peak E Velocity 63.0 cm/s Right Atrial Pressure 3.0 mmHg Pulmonary Artery Systolic Pressu 40.0 mmHg PV Peak Velocity 115.0 cm/s FINDINGS Left Ventricle Normal left ventricular size and systolic function, EF 58 %. Moderate left ventricular hypertrophy. Grade II/IV diastolic dysfunction, moderately elevated filling pressures. Right Ventricle Catheter/pacemaker wire in the right ventricular cavity. Right Atrium Catheter/pacemaker wire in the right atrial appendage. Left Atrium Mildly increased left atrial size. Mitral Valve Moderate mitral annular calcification. Mild to moderate mitral valve regurgitation. Aortic Valve The bioprosthetic valve at the aortic position appears to be well-seated. The peak velocity across the aortic valve was 1.76 m/s with a peak gradient of 12 mmHg Tricuspid Valve Trace to mild tricuspid valve regurgitation. Estimated pulmonary artery peak systolic pressure 40 mmHg Pulmonic Valve Mild pulmonary valve regurgitation. Pericardium No pericardial effusion. Aorta Normal aortic annulus size. IVC Normal inferior vena cava. CONCLUSIONS Normal left ventricular size and systolic function, EF 58 %. Moderate left ventricular hypertrophy. Grade II/IV diastolic dysfunction, moderately elevated filling pressures. The bioprosthetic valve at the aortic position appears to be well-seated. The peak velocity across the aortic valve was 1.76 m/s with a peak gradient of 12 mmHg. Moderate mitral annular calcification. Mild to moderate mitral valve regurgitation. Mildly increased left atrial size. Trace to mild tricuspid valve regurgitation. Estimated pulmonary artery peak systolic pressure 40 mmHg. Mild pulmonary valve regurgitation. There is no pericardial effusion. Pacemaker wire in the right atrium and right ventricle. There are no intracardiac masses. Compared to the study from 10/26/2022, the aortic valve appears to be replaced Dr Ana Rosa Ramirez MD [facility] (Electronically Signed) Final Date: 22 October 2023 09:14 S
== END 2023-10-18 13:21 | disposition home or self-care (01) ==
LOC: RAD 13:20
PROVIDERS: PCP Family Medicine; Visit Provider Internal Medicine Cardiovascular Disease
DX: R06.09 Other forms of dyspnea (principal); I08.8 Other rheumatic multiple valve diseases; Z95.2 Presence of prosthetic heart valve
CPT/HCPCS: 93306

== ENCOUNTER 2023-12-21 14:48 | Oncology outpatient (recurring) (ONCR) | payer MEDICARE, OTHER, SELFPAY ==
[2023-12-21 16:02] LABS: Reticulocyte % 1.1 % (0.5-2.0)
[2023-12-21 16:03] LABS: Basophils # 0.1 10^3/uL (0.0-0.1); Basophils % 1.1 %; Eosinophils # 0.2 10^3/uL (0.0-0.8); Eosinophils % 3.9 %; Hematocrit 37.2 % (36-47); Mean Corpuscular HGB Conc 33.9 g/dL (30-55); Mean Corpuscular Hemoglobin 31.4 pg (27-33); Mean Corpuscular Volume 92.8 fl (85-98); Mean Platelet Volume 9.9 fL (7.4-10.4); Monocytes # 0.4 10^3/uL (0.2-0.9); Monocytes % 7.5 %; Neutrophils # 3.66 10^3/uL (1.8-7.7); Neutrophils % 68.9 %; Nucleated Red Blood Cells % 0 %; Platelet Count 93 10^3/cmm (157-399); Red Blood Count 4.01 10^6/uL (3.85-5.65); Red Cell Distribution Width 12.3 % (12.1-15.1); White Blood Count 5.32 10^3/uL (3.29-11.43)
[2023-12-21 16:11] LABS: Erythrocyte Sedimentation Rate 3 mm/hr (0-15)
[2023-12-21 16:15] LABS: LAB Peripheral Smear Sent for Review
[2023-12-21 16:26] LABS: Alanine Aminotransferase 23 U/L (0-33); Albumin Level 4.1 g/dL (3.5-5.2); Alkaline Phosphatase 86 U/L (35-105); Aspartate Amino Transferase 48 U/L (0-32); Blood Urea Nitrogen 31 mg/dL (8-23); C Reactive Protein 4.9 mg/L (0.0-4.9); Calcium 9.5 mg/dL (8.5-10.5); Carbon Dioxide 31 mmol/L (22-29); Chloride 103 mmol/L (98-107); Creatinine Clr Calc Pharmacy 31.0195; Glucose 78 mg/dL (65-115); Iron 72 ug/dL (37-145); Lactate Dehydrogenase 202 U/L (135-214); Osmolality Calculated 295 mOsm/kg (285-295); Sodium 140 mmol/L (136-145); Total Bilirubin 0.4 mg/dL (0.15-1.2); Total Iron Binding Capacity 300 mcg/dl; Total Protein 6.1 g/dL (6.6-8.7); Unsaturated Iron Binding 228 ug/dL (112-347)
[2023-12-21 17:33] LABS: Vitamin B12 860 pg/mL (232-1245)
[2023-12-21 18:36] LABS: Folate Level > 20.0 ng/mL (4.8-37.3)
[2023-12-22 17:09] LABS: Anti-Nuclear Antibody Screen NEGATIVE (NEGATIVE)
== END 2024-01-06 23:59 | disposition home or self-care (01) ==
PROVIDERS: Internal Medicine Medical Oncology; PCP Family Medicine; Visit Provider Family Medicine
DX: D64.9 Anemia, unspecified (principal); D69.6 Thrombocytopenia, unspecified; Z95.2 Presence of prosthetic heart valve; R35.0 Frequency of micturition; R53.83 Other fatigue; Z53.9 Procedure and treatment not carried out, unspecified reason
CPT/HCPCS: 36415; 80053; 82607; 82746; 83010; 83540; 83550; 83615; 85025; 85045; 85651; 86038; 86140; 99204

== ENCOUNTER → 2024-03-29 10:50 | Outpatient (BNVA) | payer MEDICARE, OTHER, SELFPAY | PROVIDERS: PCP Family Medicine; Visit Provider Internal Medicine Cardiovascular Disease | DX: Z95.0 Presence of cardiac pacemaker (principal); I48.0 Paroxysmal atrial fibrillation; I10 Essential (primary) hypertension; Z95.2 Presence of prosthetic heart valve; D69.6 Thrombocytopenia, unspecified | CPT/HCPCS: 99214 ==

== ENCOUNTER → 2024-08-16 13:44 | Outpatient (BNVA) | payer MEDICARE, OTHER, SELFPAY | PROVIDERS: PCP Family Medicine; Visit Provider Family Medicine | DX: E11.9 Type 2 diabetes mellitus without complications (principal); M79.10 Myalgia, unspecified site; I10 Essential (primary) hypertension; I35.0 Nonrheumatic aortic (valve) stenosis; I48.0 Paroxysmal atrial fibrillation; D64.9 Anemia, unspecified; E03.9 Hypothyroidism, unspecified | CPT/HCPCS: 80053; 80061; 82306; 82607; 83735; 83880; 84443; 85025 ==

== ENCOUNTER → 2024-10-03 15:11 | Outpatient (BNVA) | payer MEDICARE, OTHER, SELFPAY | PROVIDERS: PCP Family Medicine; Visit Provider Internal Medicine Cardiovascular Disease | DX: I10 Essential (primary) hypertension (principal); I73.9 Peripheral vascular disease, unspecified; I48.0 Paroxysmal atrial fibrillation; Z95.2 Presence of prosthetic heart valve; I83.93 Asymptomatic varicose veins of bilateral lower extremities; R06.02 Shortness of breath | CPT/HCPCS: 36415; 83880; 99214 ==

== ENCOUNTER 2024-10-27 10:26 | Outpatient (CLI) | payer MEDICARE, OTHER, SELFPAY ==
[2024-10-27 11:21] LABS: Anion Gap 13.2 (5-19); Blood Urea Nitrogen 29 mg/dL (8-23); Calcium 9.5 mg/dL (8.5-10.5); Carbon Dioxide 30 mmol/L (22-29); Chloride 102 mmol/L (98-107); Glucose 92 mg/dL (65-115); NT Pro B Type Natriuretic Pept 1505 pg/mL (0-450); Osmolality Calculated 297 mOsm/kg (285-295); Potassium 4.2 mmol/L (3.5-5.1); Sodium 141 mmol/L (136-145)
== END 2024-10-27 10:27 | disposition home or self-care (01) ==
LOC: LAB 10:28
PROVIDERS: PCP Family Medicine; Visit Provider Internal Medicine Cardiovascular Disease
DX: R06.02 Shortness of breath (principal); I51.9 Heart disease, unspecified
CPT/HCPCS: 80048; 83880

== ENCOUNTER → 2024-12-05 13:49 | Outpatient (BNVA) | payer MEDICARE, OTHER, SELFPAY | PROVIDERS: PCP Family Medicine; Visit Provider Internal Medicine | DX: I73.9 Peripheral vascular disease, unspecified (principal) | CPT/HCPCS: 99214 ==

== ENCOUNTER 2024-12-22 13:07 | Outpatient (CLI) | payer MEDICARE, OTHER, SELFPAY ==
[2024-12-22 13:57] LABS: Basophils % 0.8 %; Eosinophils # 0.3 10^3/uL (0.0-0.8); Eosinophils % 6.1 %; Hematocrit 38.5 % (36-47); Lymphocytes # 0.9 10^3/uL (0.8-4.8); Lymphocytes % 19.1 %; Mean Corpuscular HGB Conc 32.7 g/dL (30-55); Mean Corpuscular Hemoglobin 30.7 pg (27-33); Mean Corpuscular Volume 93.7 fl (85-98); Mean Platelet Volume 9.8 fL (7.4-10.4); Monocytes # 0.4 10^3/uL (0.2-0.9); Monocytes % 7.3 %; Neutrophils # 3.26 10^3/uL (1.8-7.7); Neutrophils % 66.5 %; Nucleated Red Blood Cells % 0 %; Platelet Count 105 10^3/cmm (157-399); Red Blood Count 4.11 10^6/uL (3.85-5.65); Red Cell Distribution Width 12.1 % (12.1-15.1); White Blood Count 4.91 10^3/uL (3.29-11.43)
[2024-12-22 14:07] LABS: INR 0.97 (0.83-1.21); Prothrombin Time (Patient) 13.5 Seconds (12.0-15.1)
[2024-12-22 14:16] LABS: Anion Gap 13.3 (5-19); Blood Urea Nitrogen 27 mg/dL (8-23); Calcium 9.6 mg/dL (8.5-10.5); Carbon Dioxide 30 mmol/L (22-29); Chloride 102 mmol/L (98-107); Glucose 90 mg/dL (65-115); Osmolality Calculated 297 mOsm/kg (285-295); Potassium 4.3 mmol/L (3.5-5.1); Sodium 141 mmol/L (136-145)
== END 2024-12-22 13:08 | disposition home or self-care (01) ==
LOC: LAB 13:08
PROVIDERS: PCP Family Medicine; Visit Provider Internal Medicine
DX: I73.9 Peripheral vascular disease, unspecified (principal)
CPT/HCPCS: 36415; 80048; 85025; 85610

== ENCOUNTER 2025-01-10 07:24 | Outpatient (CLI) | payer MEDICARE, OTHER, SELFPAY ==
[2025-01-10] VITALS (32 sets, daily range): BP systolic 98–219; BP diastolic 29–79; PULSE 60–62; RESP 7–21; TEMP 36.2–36.7; O2SAT 90–99; BMI 16.2; BMI 22.2
[2025-01-10] MEDS: aspirin 325 mg Tablet PO (08:15)
[2025-01-10] MEDS: diphenhydrAMINE 50 mg Capsule PO (08:16)
[2025-01-10 08:20] LABS: Blood Urea Nitrogen 23 mg/dL (8-23); Calcium 9.3 mg/dL (8.5-10.5); Carbon Dioxide 26 mmol/L (22-29); Chloride 105 mmol/L (98-107); Glucose 96 mg/dL (65-115); Osmolality Calculated 298 mOsm/kg (285-295); Sodium 142 mmol/L (136-145)
[2025-01-10 08:31] LABS: Creatinine Clr Calc Pharmacy 34.1642
--- NOTE | 2025-01-10 08:40 | W.PM.OPSFHP ---
Same Day Surgery H&P Indication for Procedure/HPI DATE OF PROCEDURE: January 10, 2025 CHIEF COMPLAINT/INDICATIONFOR SURGICAL PROCEDURE: Lifestyle limiting claudication of left lower extremity PREOP DIAGNOSIS: Lifestyle limiting claudication of left lower extremity PLANNED PROCEDURE: Operation Date: 01/10/25 08:30 Proposed Procedures p Peripheral Diagnostic - Peripheral Angiogram(Not Applicable) - Oj Dodge M.D Peripheral intervention 84-year-old woman with past medical history of aortic valve replacement has been having severe left-sided lifestyle-limiting claudication. She refused medical therapy with cilostazol. Plan for peripheral angiogram with possible intervention. Risks and benefits of the procedure discussed. Medications/Allergies* Home Medications ?Medication ?Instructions ?Recorded ?Confirmed ?Type chromium picolinate 1,000 mcg 1,000 mcg PO DAILY 03/19/20 01/10/25 History tablet multivitamin 1 tab PO DAILY 03/19/20 01/10/25 History selenium 200 mcg capsule 200 mcg PO DAILY 03/19/20 01/10/25 History silver biotics 1 tab PO DAILY 03/19/20 01/10/25 History ascorbate calcium (vitamin C) 500 500 mg PO DAILY 07/09/22 01/10/25 History mg tablet biotin 5,000 mcg sublingual tablet 1,000 mcg sublingual DAILY 07/09/22 01/10/25 History potassium gluconate 595 mg (99 mg) 1,190 mg PO DAILY 03/29/24 01/10/25 History tablet metoprolol tartrate 50 mg tablet 100 mg PO BID 01/09/25 01/10/25 History ferrous gluconate 324 mg (38 mg 324 mg PO DAILY 01/10/25 01/10/25 History iron) tablet Allergies/Adverse Reactions Allergy/AdvReac Type Severity Reaction Status Date / Time cephalexin (From Keflex) Allergy Unknown unknown Verified 01/10/25 08:27 doxycycline Allergy Unknown unknown Verified 01/10/25 08:27 naldemedine Allergy Unknown unknown Verified 01/10/25 08:27 Sulfa (Sulfonamide Allergy Unknown unknown Verified 01/10/25 08:27 Antibiotics) amlodipine Allergy unknown Verified 01/10/25 08:27 carvedilol Allergy unknown Verified 01/10/25 08:27 moxifloxacin (From Avelox) Allergy unknown Verified 01/10/25 08:27 naproxen Allergy unknown Verified 01/10/25 08:27 olmesartan Allergy unknown Verified 01/10/25 08:27 hydralazine AdvReac ADR-Dizzine Verified 01/10/25 08:27 ss Current Medications: Generic Name Dose Route Start Last Admin Trade Name Freq PRN Reason Stop Dose Admin Sodium Chloride 1,000 mls @ 50 mls/hr 01/10/25 07:30 01/10/25 08:16 Sodium Chloride 0.9% IV 01/11/25 03:29 Not Given .Q20H ONE Pertinent History/Comorbid Conditions* Medical History (Updated 10/03/24 @ 22:14 by Ana Rosa Ramirez MD) Anemia Thrombocytopenia Hypothyroid Hypertension Atrial fibrillation Pacemaker Aortic regurgitation Allergic rhinitis Surgical History (Updated 12/22/23 @ 08:00 by Cristian Macario MD) History of permanent cardiac pacemaker placement Initially placed in 2011 and replaced in November 2021. History of bunionectomy S/P TAVR (transcatheter aortic valve replacement) Hx of cataract extraction History of tonsillectomy and adenoidectomy Hx of vein stripping Hx of foot surgery Family History (Updated 05/07/21 @ 15:04 by Kenyatta Adamson RN) Diabetes Brother CAD (coronary artery disease) Mother Brother Cancer Father Hypertension Mother Denies family history of Clotting disorder Dementia Chronic kidney disease (CKD) Suicide Anesthesia complication Bleeding disorder Lung disease Stroke Social History Smoking and tobacco/nicotine status: never used tobacco/nicotine Alcohol intake: never Substance/Drug Use: never Household members: spouse Marital status: Pertinent Exam Findings alert, oriented x 3, clear to auscultation bilaterally and regular rate & rhythm Conscious Sedation Assessment PATIENT ASSESSED PRIOR TO SEDATION, WITH NO CHANGE NOTED: Yes AIRWAY EVAL/ANESTHESIA PLAN: normal airway, ASA III, Local Anesthesia, Risks, benefits & alternatives of sedation and/or procedure discussed and Patient agrees to continue as planned ADDITIONAL INFORMATION: Moderate sedation Recommendations Surgery/Procedure today (Peripheral angiogram with possible intervention) Coding Level of Care Code Acute Code for Chg Fwd
--- NOTE | 2025-01-10 09:46 | SUR.PHASEI ---
POST CATH NOTE Received patient from laboratory sample carrier. Status post peripheral intervention of the left SFA. Right side femoral access in place hooked to a pressure bag. Site is hemostatic and free of hematoma formation. Vitals and assessments per flowsheet. Call light within reach. Informed to call for needs. Family at bedside.
[2025-01-10] MEDS: labetalol 5 mg/mL SDV 20mL 10 MG IVP (10:00)
--- NOTE | 2025-01-10 10:23 | PM.PROC ---
Procedure Note: Date of procedure: 01/10/25 Pre-procedure diagnosis: Severe lifestyle limiting claudication Post-procedure diagnosis: other (Critical left SFA stenosis s/p revascularization with balloon angioplasty) Procedure: Patient has critical left proximal SFA 99% stenosis. Underwent successful revascularization with balloon angioplasty with a drug-coated balloon. Below the knee has two-vessel runoff with patent anterior tibial artery and patent but diseased peroneal artery. Posterior tibial artery is occluded. Has severe right SFA stenosis. Below the knee has single-vessel runoff via the anterior tibial artery which has 80 to 90% stenosis. Plan for staged revascularization. Aspirin and plavix Performing Provider: Oj Dodge Estimated blood loss (mL): 10 Complications: None Condition: stable Disposition: floor Coding Level of Care Code Acute Code for Chg Fwd
--- NOTE | 2025-01-10 10:58 | PC.NURSE ---
Patient is s/p peripheral angiogram with right femoral access. Sheath and pressure bag remain in place with dressing covering site. Dressing remains c,d,i at this time. No s/s of bleeding or hematoma formation. Instructed patient on site care and restrictions. Patient verbalized comlpete understanding. BP remain elevated at this time at 185/67. Dr Dodge is aware
--- NOTE | 2025-01-10 12:09 | PC.NURSE ---
Addendum entered by Sada Leon RN 01/10/25 12:15: Shauna is aware of allergy to olmesartan. Received okay to give medication now. Original Note: Informed Shauna Klein NP of patient's persistent elevated BP. Received telephone order for 0.1mg Clonidine PO PRN for SBP >180, and losartan 25mg PO daily with 1st dose now. RBVO
[2025-01-10] MEDS: cloNIDine 0.1 mg Tablet PO (12:49)
[2025-01-10] MEDS: losartan 50 mg Tablet 25 MG PO (12:49)
[2025-01-10] MEDS: sodium chloride 0.9% 1,000 ML 100 ML IV (14:15)
--- NOTE | 2025-01-10 14:19 | PC.NURSE ---
Informed Shauna Klein NP of decreasing BP. patient has NS at 100ml/hr per Shauna. Will continue to monitor.
[2025-01-10 14:37] LABS: Partial Thromboplastin Time 43.3 SECONDS (23.9-36.7)
--- NOTE | 2025-01-10 15:39 | PC.NURSE ---
Initiated sheath removal per protocol at 1456. Hemostasis achieved immediately. Maintained pressure until 1525. No s/s of bleeding or hematoma formation observed. Small bruise observed to immediate entry site. Patient denies pain to site and tolerated procedudre well. Covered site with 2x2 and bio-occlusive dressing. BP's monitored and improving. Will continue to monitor
[2025-01-10 16:35] LABS: Partial Thromboplastin Time 31.5 SECONDS (23.9-36.7)
[2025-01-10] MEDS: atorvastatin 40 mg Tablet PO (20:20)
[2025-01-11 00:16] VITALS: BP 135/40; PULSE 61; RESP 18; TEMP 36.8; O2SAT 98
[2025-01-11 04:52] LABS: Basophils # 0.1 10^3/uL (0.0-0.1); Basophils % 1.1 %; Eosinophils # 0.2 10^3/uL (0.0-0.8); Eosinophils % 4.4 %; Hematocrit 34.6 % (36-47); Lymphocytes # 0.6 10^3/uL (0.8-4.8); Lymphocytes % 12.8 %; Mean Corpuscular HGB Conc 32.4 g/dL (30-55); Mean Corpuscular Hemoglobin 30.4 pg (27-33); Mean Platelet Volume 9.9 fL (7.4-10.4); Monocytes # 0.3 10^3/uL (0.2-0.9); Monocytes % 7.3 %; Neutrophils # 3.35 10^3/uL (1.8-7.7); Nucleated Red Blood Cells % 0 %; Platelet Count 75 10^3/cmm (157-399); Red Blood Count 3.68 10^6/uL (3.85-5.65); Red Cell Distribution Width 12.4 % (12.1-15.1); White Blood Count 4.53 10^3/uL (3.29-11.43)
[2025-01-11 05:00] VITALS: BP 168/56; PULSE 66; RESP 16; TEMP 36.8; O2SAT 95
[2025-01-11 05:19] LABS: Anion Gap 12.8 (5-19); Blood Urea Nitrogen 25 mg/dL (8-23); Calcium 8.8 mg/dL (8.5-10.5); Carbon Dioxide 26 mmol/L (22-29); Chloride 109 mmol/L (98-107); Creatinine Clr Calc Pharmacy 31.0584; Glucose 98 mg/dL (65-115); Osmolality Calculated 302 mOsm/kg (285-295); Potassium 3.8 mmol/L (3.5-5.1); Sodium 144 mmol/L (136-145)
--- NOTE | 2025-01-11 07:02 | PC.NURSE ---
Right groin dressing remains c,d,i without s/s of bleeding or hematoma formation observed. Patient up an ambulatory. BP with improved control. Patient denies pain or needs just asks when can I go home. No distress observed. Will continue to monitor.
[2025-01-11 07:27] VITALS: BP 181/73; PULSE 68; RESP 11; TEMP 36.6; O2SAT 100
[2025-01-11] MEDS: clopidogrel 75 mg Tablet PO (07:38)
[2025-01-11] MEDS: aspirin 81 mg EC Tablet PO (07:38)
[2025-01-11 07:39] VITALS: BP 181/73
[2025-01-11] MEDS: losartan 50 mg Tablet 25 MG PO ×2 (07:39→09:47)
[2025-01-11] MEDS: metoprolol tartrate 50 mg Tablet 100 MG PO (08:10)
[2025-01-11 09:47] VITALS: BP 193/59
[2025-01-11 10:47] VITALS: BP 175/73; PULSE 60; RESP 17
--- NOTE | 2025-01-11 10:50 | P.SS_ITS ---
<Statement entered by Oj Dodge M.D - 01/12/25 21:42> Patient was evaluated and cared for in conjunction with an advanced practice practitioner. I personally examined the patient and reviewed the chart and all pertinent data including imaging, telemetry, and laboratory results. I discussed the patient in detail with the advanced practice practitioner. Please see their note for complete short stay summary, results and agreed upon plan of care for the patient. 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 Review of Systems Card: Denies: chest pain, palpitations, irregular heart rhythm, edema, swelling of feet/ankles, lightheadedness, syncope, pre-syncope, dyspnea on exertion, orthopnea or leg pain with exertion Resp: Denies: dyspnea, productive cough or non-productive cough GI: Denies: hematochezia : Denies: hematuria Skin/Breast: Reports: surgical incision Juan/Lymph: Denies: easy bleeding Home Meds/Allergies Home Medications and Allergies Home Medications ?Medication ?Instructions ?Recorded ?Confirmed ?Type chromium picolinate 1,000 mcg 1,000 mcg PO DAILY 03/1901/10/25 History tablet multivitamin 1 tab PO DAILY 03/19/2004/01 History selenium 200 mcg capsule 200 mcg PO DAILY 03/19/20 History silver biotics 1 tab PO DAILY 03/19/2004/01 History ascorbate calcium (vitamin C) 500 500 mg PO DAILY 11/2901/10/25 History mg tablet biotin 5,000 mcg sublingual tablet 1,000 mcg sublingua l DAILY 07/09/22 01/10/25 History potassium gluconate 595 mg (99 mg) 1,190 mg PO DAILY 0 03/29/24 01/10/25 History tablet metoprolol tartrate 50 mg tablet 100 mg PO BID 5 01/10/25 History ferrous gluconate 324 mg (38 mg 324 mg PO DAILY 01/10/25 History iron) tablet Allergies Allergy/AdvReac Type Severity Reaction Status Date / Time cephalexin (From Keflex) Allergy Unknown unknown Verified 01/10/25 08:27 doxycycline Allergy Unknown unknown Verified 01/10/25 08:27 naldemedine Allergy Unknown unknown Verified 01/10/25 08:27 Sulfa (Sulfonamide Allergy Unknown unknown Verified 01/10/25 08:27 Antibiotics) amlodipine Allergy unknown Verified 01/10/25 08:27 carvedilol Allergy unknown Verified 01/10/25 08:27 moxifloxacin (From Avelox) Allergy unknown Verified 01/10/25 08:27 naproxen Allergy unknown Verified 01/10/25 08:27 olmesartan Allergy unknown Verified 01/10/25 08:27 hydralazine AdvReac ADR-Dizzine Verified 01/10/25 08:27 ss PFSH Acute PFSH: Medical History Anemia Thrombocytopenia Hypothyroid Hypertension Atrial fibrillation Pacemaker Aortic regurgitation Allergic rhinitis Surgical History History of permanent cardiac pacemaker placement Initially placed in 2011 and replaced in November 2021. History of bunionectomy S/P TAVR (transcatheter aortic valve replacement) Hx of cataract extraction History of tonsillectomy and adenoidectomy Hx of vein stripping Hx of foot surgery Family History Father Cancer Mother CAD (coronary artery disease) Hypertension Brother CAD (coronary artery disease) Diabetes Denies family history of Clotting disorder Dementia Chronic kidney disease (CKD) Suicide Anesthesia complication Bleeding disorder Lung disease Stroke Social History Smoking and tobacco/nicotine status: never used tobacco/nicotine Alcohol intake: never Substance/Drug Use: never Household members: spouse Marital status: Vitals/I&O/Wt Last Vital Signs Temp 97.8 F 01/11/25 07:27 Pulse 60 01/11/25 10:47 Resp 17 01/11/25 10:47 BP 175/73 01/11/25 10:47 Pulse Ox 100 01/11/25 07:27 O2 Del Method Room Air 01/11/25 07:27 01/10/25 01/11/25 01/11/25 22:59 06:59 14:59 Intake Total 1000 / 1000 Balance 1000 / 1000 Weight last 48 hrs Weight 110 lb Weight 110 lb Physical Exam Const: COMMON NORMALS: no acute distress and patient oriented x3 GENERAL APPEARANCE: cooperative ORIENTATION/CONSCIOUSNESS: Yes awake, Yes oriented to person, Yes oriented to place and Yes oriented to time Chest: COMMONS NORMALS: normal inspection of the chest and normal palpation of entire chest wall CHEST: Yes Symmetrical chest wall rise Resp: COMMON NORMALS: normal respiratory effort, No retractions, No use of accessory muscles and clear to auscultation bilaterally AUSCULTATION: clear to auscultation bilaterally Cardio: COMMON NORMALS: regular rate, regular rhythm, S1 normal heart sound present, S2 normal heart sound present, No gallops present (Cardio), No clicks present (Cardio), No murmurs present (Cardio) and No rub (Cardio) RATE: regular rate RHYTHM: regular rhythm HEART SOUNDS: S1 normal heart sound present and S2 normal heart sound present PERIPHERAL PULSES: radial pulses present positive right 2+ and femoral pulses present positive right 2+ Neuro: COMMON NORMALS: patient oriented x3 and moves all extremities SENSORIUM/ORIENTATION: Yes oriented to person, Yes oriented to place and Yes oriented to time Skin: WOUNDS: Yes surgical site (no hematoma palpable) Details: no odor Hospital Course Hospital Course She was brought in for peripheral angiogram yesterday, finding left proximal SFA 99% stenosis which was treated with balloon angioplasty with drug-coated balloon. Below the knee two-vessel runoff noted, patent anterior tibial artery patent, peroneal artery (has disease), posterior tibial artery occluded. The right SFA has severe stenosis as well, below the knee single-vessel runoff via anterior tibial which also contains significant stenosis. Will plan for staged revascularization in 3 weeks. She will continue aspirin and Plavix for 3 months as well as resume statin. She had some significant hypertension postprocedure, her home dose of metoprolol was restarted, losartan 25 mg was added as blood pressure continued to remain elevated. Will increase her dose of losartan from 25 mg to 50 mg for better control of hypertension. Follow-up in the clinic in 7 to 10 days with the cardiology MOBILE DEVELOPER, plan for reassessment of BMP and scheduling of staged intervention. SSS Data Data Completed and Pending: Pending at discharge Category Date Time Status INSTRUCTIONAL DESIGN SPECIALIST request for service Routin e Exams 01/10/25 07:30 Taken Discharge Plan Discharge Patient Disposition: Home Prescriptions: New losartan 50 mg Tablet 25 mg PO DAILY Qty: 90 3RF clopidogrel 75 mg Tablet 75 mg PO DAILY Qty: 90 0RF aspirin 81 mg Tablet,Delayed Release (Dr/Ec) 81 mg PO DAILY Qty: 90 0RF atorvastatin 40 mg Tablet 40 mg PO BEDTIME Qty: 90 3RF Continued multivitamin Tablet 1 tab PO DAILY silver biotics 1 tbsp 1 tab PO DAILY chromium picolinate 1,000 mcg tablet 1,000 mcg PO DAILY selenium 200 mcg capsule 200 mcg PO DAILY biotin 5,000 mcg tablet, sublingual 1,000 mcg SUBLINGUAL DAILY potassium gluconate 595 mg (99 mg) tablet 1,190 mg PO DAILY ascorbate calcium (vitamin C) 500 mg tablet 500 mg PO DAILY fluticasone propionate 50 mcg/actuation spray,suspension See Rx Instructions .ROUTE .COMPLEX Qty: 48 4RF Dose Instruction: SPRAY 2 SPRAYS INTO EACH NOSTRIL EVERY DAY Rx Instructions: SPRAY 2 SPRAYS INTO EACH NOSTRIL EVERY DAY furosemide 20 mg tablet 20 mg PO DAILY Qty: 90 3RF levothyroxine 75 mcg tablet See Rx Instructions .ROUTE .COMPLEX Qty: 90 4RF Dose Instruction: TAKE 1 TABLET BY MOUTH EVERY DAY Rx Instructions: TAKE 1 TABLET BY MOUTH EVERY DAY metoprolol tartrate 50 mg tablet 100 mg PO BID ferrous gluconate 324 mg (38 mg iron) tablet 324 mg PO DAILY Discharge Orders: Discharge Order (Routine); Ordered 01/11/25 Ordered By: Shauna Klein Referrals: Christy Maddox NP [Nurse Practitioner] - 01/29/25 3:30 am Chucky Noland MD [Primary Care Provider] - 01/22/25 12:00 pm Diet: Advance as tolerated Activity: Increase activity as tolerated Patient Instructions: Aspirin (By mouth), Losartan (By mouth) (Cozaar), Atorvastatin (By mouth) (Lipitor, Atorvaliq), Clopidogrel (By mouth) (Plavix), Peripheral Vascular Angioplasty (DC), Post Angiogram Home Care Instructions Activity Restrictions/Additional Instructions: No lifting anything over 5 pounds for the next 4 days. Print Language: Burmese Attestations Medical Necessity Statement*: Plan for discharge Time Spent in Patient Care*: less than 30 min Quality Metrics Clinical Quality Measures: [ No reported AMI, CVA or VTE this stay ] Coding Level of Care Code Acute Code for Chg Fwpriya
--- NOTE | 2025-01-11 11:25 | PC.NURSE ---
Patient discharged to home. Instruction provided regarding follow up needs, elevated BP with new medications, and site care with restrictions. Patient verbalized complete understanding. New meds transmitted to [facility]. Right groin dressing remains c,d,i without s/s of bleeding or hematoma formation observed. Patient taken by wheelchair to private vehicle with at side to provide transportation. Patient denies pain or needs. No distress observed.
== END 2025-01-11 11:29 | disposition home or self-care (01) ==
LOC: CCL 07:28 → CSU 10:47
PROVIDERS: Nurse Practitioner Family; PCP Family Medicine; Visit Provider Internal Medicine
DX: I70.213 Atherosclerosis of native arteries of extremities with intermittent claudication, bilateral legs (principal); Z95.2 Presence of prosthetic heart valve; Z95.0 Presence of cardiac pacemaker; I10 Essential (primary) hypertension
CPT/HCPCS: 36415; 37224; 75625; 75716; 80048; 85025; 85347; 85730; 96374; 96375; 96376; 99152; 99153; C1769; C1887; C1894; C2623; J1644; J2250; J3010; J3490; J7030; J9999; Q0163; Q9967

== ENCOUNTER → 2025-01-22 13:08 | Outpatient (BNVA) | payer MEDICARE, OTHER, SELFPAY | PROVIDERS: PCP Family Medicine; Visit Provider Family Medicine | DX: I10 Essential (primary) hypertension (principal); I73.9 Peripheral vascular disease, unspecified | CPT/HCPCS: 80048 ==

== ENCOUNTER → 2025-01-29 15:18 | Outpatient (BNVA) | payer MEDICARE, OTHER, SELFPAY | PROVIDERS: PCP Family Medicine; Visit Provider Nurse Practitioner Family | DX: I73.9 Peripheral vascular disease, unspecified (principal) | CPT/HCPCS: 99214 ==

== ENCOUNTER 2025-02-09 08:44 | Outpatient (CLI) | payer MEDICARE, OTHER, SELFPAY ==
[2025-02-09 09:23] LABS: Basophils % 0.8 %; Eosinophils # 0.2 10^3/uL (0.0-0.8); Eosinophils % 3.1 %; Hematocrit 37.7 % (36-47); Lymphocytes # 0.7 10^3/uL (0.8-4.8); Lymphocytes % 14.5 %; Mean Corpuscular HGB Conc 32.9 g/dL (30-55); Mean Corpuscular Hemoglobin 30.5 pg (27-33); Mean Corpuscular Volume 92.9 fl (85-98); Mean Platelet Volume 10.1 fL (7.4-10.4); Monocytes # 0.3 10^3/uL (0.2-0.9); Monocytes % 6.2 %; Neutrophils # 3.62 10^3/uL (1.8-7.7); Neutrophils % 75.2 %; Nucleated Red Blood Cells % 0 %; Platelet Count 79 10^3/cmm (157-399); Red Blood Count 4.06 10^6/uL (3.85-5.65); Red Cell Distribution Width 12.4 % (12.1-15.1); White Blood Count 4.82 10^3/uL (3.29-11.43)
[2025-02-09 09:34] LABS: Prothrombin Time (Patient) 12.8 Seconds (12.0-15.1)
[2025-02-09 09:39] LABS: Anion Gap 12.1 (5-19); Blood Urea Nitrogen 26 mg/dL (8-23); Calcium 9.1 mg/dL (8.5-10.5); Carbon Dioxide 30 mmol/L (22-29); Chloride 103 mmol/L (98-107); Glucose 103 mg/dL (65-115); Osmolality Calculated 297 mOsm/kg (285-295); Potassium 4.1 mmol/L (3.5-5.1); Sodium 141 mmol/L (136-145)
== END 2025-02-09 08:45 | disposition home or self-care (01) ==
LOC: LAB 08:45
PROVIDERS: PCP Family Medicine; Visit Provider Nurse Practitioner Family
DX: I73.9 Peripheral vascular disease, unspecified (principal); S42.209A Unspecified fracture of upper end of unspecified humerus, initial encounter for closed fracture; X58.XXXA Exposure to other specified factors, initial encounter
CPT/HCPCS: 36415; 80048; 85025; 85610

== ENCOUNTER 2025-02-21 05:58 | Outpatient (CLI) | payer MEDICARE, OTHER, SELFPAY ==
[2025-02-21] VITALS (58 sets, daily range): BP systolic 67–196; BP diastolic 37–113; PULSE 60–76; RESP 10–28; TEMP 36.6–36.8; O2SAT 94–99
--- NOTE | 2025-02-21 06:00 | XACV_ITS ---
Exam Room: 2 Ht: 175 cm Wt: 49 kg BSA: 1.53 m2 Gender: Female : 1940 Any Known Allergies: Other Exam Priority: Routine Procedure(s): Procedure Description: Diagnostic procedure Procedure Description: Peripheral Cath Diagnostic Procedure Procedure Description: Lower extremities' angiography Procedure Description: Peripheral vascular Intervention Procedure Description: PV Balloon Procedure Description: PV Stent Lower Extremity Diagnostic Findings INDICATION: Severe lifestyle limiting claudication. Right Mid-longitudinal Superficial Femoral Artery: Severe 80-90% stenosis. Right Mid-longitudinal Anterior Tibial Artery: Severe 95% stenosis. Right common femoral artery is patent. Right external iliac artery is patent. Right internal iliac artery is patent. Common femoral artery is patent. Right common profunda artery is patent. Right SFA has proximal 40 to 50% stenosis. Mid to distal SFA has severe 80-90% stenosis. Right popliteal artery is patent. Below the knee anterior tibial artery is patent with critical 95% proximal stenosis. Posterior tibial artery and peroneal arteries are patent. Lower Extremity Interventional Findings Right Mid-longitudinal Superficial Femoral Artery: 80-90% stenosis treated with 6.0x100 Lutonix and Omnilink 6.0x59. Right Mid-longitudinal Anterior Tibial Artery: 95% stenosis treated with AB ARMADA 14 [id number]. Procedure detail:After diagnostic images were obtained, we advanced a Glidewire into distal anterior tibial artery. We performed balloon angioplasty with 3.0 x 40 mm Amlin balloon of proximal right anterior tibial artery . This was followed by balloon angioplasty of mid and proximal SFA with 6.0 x 100 mm Lutonix drug-coated balloon. Dissection of the mid SFA was noted. We placed 6.0 x 59 mm Omnilink stent in the SFA. At this time final angiogram was performed that showed excellent flow in the right lower extremity. Patient left the Drip Pumper in stable condition.. Conclusions Mid SFA was treated with a Balloon, and Stent. Right anterior tibial artery was treated with a Balloon. Severe PAD of right lower extremity. Right Mid-longitudinal Superficial Femoral Artery was treated with Balloon and Stent. Right Mid-longitudinal Anterior Tibial Artery was treated with Balloon. Recommendations Dual antiplatelet therapy with aspirin and plavix. Outpatient cardiology follow up in 2 weeks. Pressures Phase:Rest AO : 184 / 73 ( 114 ) @ 9:25:00 AM 127 / 48 ( 77 ) @ 9:46:00 AM Hemodynamic Data Phase:Rest AO : 184.0 / 73.0 ( 114.0 ) @ 9:25:00 AM 127.0 / 48.0 ( 77.0 ) @ 9:46:00 AM Clinical Evaluation EBL: 5mL-10mL Procedural Details Pre-Procedure Time Out. Identified patient by full name and date of as verbalized by the patient/guarantor. Does the consent match the physician's order: Yes. Accurate & Complete Informed Consent: Yes. Inpatient/Outpatient History & Physical on Chart: Yes. If H&P is completed, is and addenduem needed: No; If yes, is the addendum complete: N/A. Visualize and Verify Site with Patient/Guarantor: N/A. Relevant Radiology Images available: Yes. Pre-op teaching completed and patient verbalized understanding. The risks, benefits, and alternatives of sedation and/or procedure were discussed by physician. The patient agrees to continue. Procedure started. Physician arrived. [facility] Clinical Fraility Score: 3: Managing Well. PERRLA. 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 Lungs clear x 5 lobes. IV Site on Arrival: 20 gauge in the left anticubital. IV Fluids: 0.9% NaCl at KVO. 0 mL infused prior to geotechnical laboratory technician. Pre Procedural Pulses: bilateral dorsalis pedis was Doppled. Pre Procedural Pulses: bilateral posterior tibial was Doppled. Pre Procedural Pulses: bilateral radial was 3+. Oxygen started at 2liters/min via nasal canula. bilateral groins was prepped with chloroprep then draped in the usual sterile fashion. Baseline sample Acquired. HR: 66 BPM. Physician scrubbed in. Immediate Pre-Procedure Time Out. Correct Patient: Yes; Correct Procedure: Yes; Correct Site: Yes; Correct Patient Position: Yes; Correct Supplies: Yes; Dried Flammable Prep: Yes; Blood Products Available: N/A;. Lidocaine 1% infiltrated to the left groin. Arterial access obtained with micropuncture set. A 5FrFr UF catheter in over wire. Catheter removed over the glide wire. A 5FrFr RIM catheter in over wire. Catheter removed over the glide wire. The short 6Fr sheath was exchanged for a 6Fr 45cm Flexor sheath. Lidocaine 1% infiltrated to the left groin. Sheath injected in Right common femoral artery and runoff performed. Seeker catheter inserted OTW. Glidewire removed. Contrast hand injected through the seeker catheter. Runthrough wire inserted. Seeker catheter out OTW. Inflation number : 1 A AB ARMADA 14 OTW [id number] was prepped and advanced across the Anterior Tibial, Right , then inflated to 8 VAL for 2:03 seconds. Balloon out over wire. DSA performed of the right lower leg. Seeker catheter inserted OTW. Wire out. Glidewire inserted. Inflation number : 1 A 6.0x100 Lutonix was prepped and advanced across the Superficial Femoral, Right , then inflated to 7 VAL for 2:01 seconds. Inflation number: 2 The 6.0x100 Lutonix was reinflated across the Superficial Femoral, Right, to 7 VAL for 1:48 seconds. Balloon out over wire. Results checked. Inflation Number : 3 A Omnilink 6.0x59 -Lot Number# _[id number] EXP: 02/06/2028 was prepped and advanced across the Superficial Femoral, Right. The stent was deployed at 11 VAL for 1:31 seconds. Stent balloon out over wire. ACT drawn. Results out of range high seconds. Therapeutic limits - pre-heparin administration 90-150 seconds and monitoring heparin during a vascular procedure >250 seconds. Results checked. The long sheath exchanged for a short 6Fr sheath. A Left femoral angiogram was performed to determine safe placement of closure device. A Mynx was successful obtaining hemostatsis at the Left Femoral artery insertion site. Post Procedure: Pulses reassessed and unchanged. PERRLA. 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 No VTE prophylaxis required. Medication's Wasted: Nitro = 49.1 mcg. Medication's Wasted: Heparin = 1500 units. Total IV fluids: 60 mL. Vital chart was stopped. Post-op diagnosis: PAD. Complications: None. Estimated blood loss: 5mL-10mL. Responsiveness - Normal response to verbal stimuli; alert and oriented, PERRLA. Airway - Unaffected, no intervention required; spontaneous ventilation. Circulation: W/N/L, pulses unchanged. Nausea/Vomiting: No. Procedure completed. Femostop placed on the patients left groin. Patient transferred by bed to ICU. Vital chart was stopped. Access Site Site: Left Femoral artery Sheath Size: 6 Fr Hemostasis Method: Mynx Hemostasis Success: Successful Procedure Medications Start: 8:14 AM Stop: 8:14 AM Medication: Versed 1 mg and Fentanyl 25 mcg Amount: 1 Route: I.V. Start: 8:17 AM Stop: 8:17 AM Medication: Nitrogylcerin Amount: 200 mcg Route: I.A. Start: 8:31 AM Stop: 8:31 AM Medication: Heparin Amount: 3500 units Route: I.V. Start: 8:40 AM Stop: 8:40 AM Medication: Fentanyl Amount: 50 mcg Route: I.V. Start: 8:40 AM Stop: 8:40 AM Medication: Versed Amount: 1 mg Route: I.V. Start: 8:49 AM Stop: 8:49 AM Medication: Heparin Amount: 1000 units Route: I.V. Start: 9:01 AM Stop: 9:01 AM Medication: Nitrogylcerin Amount: 400 mcg Route: I.A. Start: 9:10 AM Stop: 9:10 AM Medication: Nitrogylcerin Amount: 300 mcg Route: I.A. Start: 9:17 AM Stop: 9:17 AM Medication: Lopressor (metoprolol) Amount: 5 mg Route: I.V. Start: 9:28 AM Stop: 9:28 AM Medication: Nitrogylcerin Amount: 10 mcg/min Route: I.V. drip Start: 9:30 AM Stop: 9:30 AM Medication: Fentanyl Amount: 25 mcg Route: I.V. Start: 9:33 AM Stop: 9:33 AM Medication: Fentanyl Amount: 25 mcg Route: I.V. I, the attending physician, have reviewed and verified all procedure medications. Yes, all medications given per verbal order History/Risk Factors Hypertension: Yes Dyslipidemia: Yes Peripheral Arterial Disease (PAD): Yes Myocardial Infarction ([place]): No Obesity: No Renal Disease: No Tobacco Use: Never Prior Interventions PCI: No CABG: No Valve Surgery: No Report Signatures Finalized by Oj Dodge MD on 03/09/2025 04:53 PM
[2025-02-21] MEDS: diphenhydrAMINE 50 mg Capsule PO (06:25)
[2025-02-21 06:26] LABS: Basophils # 0.1 10^3/uL (0.0-0.1); Basophils % 0.9 %; Eosinophils # 0.2 10^3/uL (0.0-0.8); Eosinophils % 3.9 %; Hematocrit 38.1 % (36-47); Lymphocytes # 0.9 10^3/uL (0.8-4.8); Lymphocytes % 14.8 %; Mean Corpuscular HGB Conc 33.1 g/dL (30-55); Mean Corpuscular Hemoglobin 30.5 pg (27-33); Mean Corpuscular Volume 92.3 fl (85-98); Mean Platelet Volume 9.7 fL (7.4-10.4); Monocytes # 0.5 10^3/uL (0.2-0.9); Monocytes % 7.8 %; Neutrophils # 4.24 10^3/uL (1.8-7.7); Neutrophils % 72.4 %; Nucleated Red Blood Cells % 0 %; Platelet Count 94 10^3/cmm (157-399); Red Blood Count 4.13 10^6/uL (3.85-5.65); Red Cell Distribution Width 12.2 % (12.1-15.1); White Blood Count 5.86 10^3/uL (3.29-11.43)
[2025-02-21 06:49] LABS: Anion Gap 13.7 (5-19); Blood Urea Nitrogen 30 mg/dL (8-23); Calcium 9.1 mg/dL (8.5-10.5); Carbon Dioxide 27 mmol/L (22-29); Chloride 105 mmol/L (98-107); Glucose 87 mg/dL (65-115); Osmolality Calculated 300 mOsm/kg (285-295); Potassium 3.7 mmol/L (3.5-5.1); Sodium 142 mmol/L (136-145)
--- NOTE | 2025-02-21 07:42 | W.PM.OPSUD ---
Surgery/Procedure H&P Update DATE OF PROCEDURE: February 21, 2025 DATE H&P PERFORMED: 01/29/25 H&P UPDATE INFORMATION: I have reviewed H&P completed within last 30 days, I have examined patient prior to procedure and No changes to prior documentation PREOP DIAGNOSIS: Severe lifestyle limiting claudication PRIMARY INDICATION FOR PROCEDURE: Severe lifestyle limiting claudication PLANNED PROCEDURE: Operation Date: 02/21/25 07:00 Proposed Procedures p Percutaneous peripheral Intervention of right lower extremity- Staged intervention - Oj Dodge M.D PATIENT REASSESSED PRIOR TO SEDATION, WITH NO CHANGE NOTED: Yes PHYSICAL EXAM: alert, oriented x 3, clear to auscultation bilaterally and regular rate & rhythm AIRWAY EVAL/ANESTHESIA PLAN: normal airway, ASA III and Local Anesthesia ADDITIONAL INFORMATION: Moderate sedation
[2025-02-21] MEDS: nitroglycerin drip 50 MG/250 ML PREMIX IV (09:45)
[2025-02-21] MEDS: norepinephrine 4 MG/250 ML BAG 18.75 MG IV (10:15)
[2025-02-21 10:41] LABS: Basophils # 0.1 10^3/uL (0.0-0.1); Basophils % 1.3 %; Eosinophils # 0.2 10^3/uL (0.0-0.8); Eosinophils % 3.4 %; Hematocrit 31.5 % (36-47); Lymphocytes % 18.8 %; Mean Corpuscular HGB Conc 33.3 g/dL (30-55); Mean Corpuscular Hemoglobin 31.3 pg (27-33); Mean Corpuscular Volume 93.8 fl (85-98); Mean Platelet Volume 9.9 fL (7.4-10.4); Monocytes # 0.3 10^3/uL (0.2-0.9); Monocytes % 5.1 %; Neutrophils # 3.95 10^3/uL (1.8-7.7); Neutrophils % 71.2 %; Nucleated Red Blood Cells % 0 %; Platelet Count 88 10^3/cmm (157-399); Red Blood Count 3.36 10^6/uL (3.85-5.65); Red Cell Distribution Width 12.2 % (12.1-15.1); White Blood Count 5.54 10^3/uL (3.29-11.43)
[2025-02-21] MEDS: sodium chloride 0.9% 1,000 ML 100 ML IV (10:43)
[2025-02-21] MEDS: losartan 50 mg Tablet PO (12:26)
[2025-02-21] MEDS: hydroCHLOROthiazide 25 mg Tablet PO (12:26)
--- NOTE | 2025-02-21 13:22 | PC.NURSE ---
0945 -- Received patient from incinerator plant laborer via bed with medical laboratory technical officer RN at bedside. Left groin puncture site noted to be swollen but soft with fem stop in place. Marked hematoma and bruising to left groin. Nitro infusing at 15mcg/min. No reports of pain or discomfort. Pulses palpable to bilat dorsalis pedis. Large bruise noted to left lower leg, patient states I had this prior to coming to the hospital. 1000 -- Left groin hematoma expanded from admit to ICU. Fem stop removed and manual pressure applied. Notified Dr. Dodge and medical laboratory technical officer team. 1006 -- Continue to hold manual pressure to left groin, Dr. Dodge to bedside and medical laboratory technical officer team at bedside. Blood pressure 73/40 on site monitor. Placed patient in trendelenburg per Dr. Ramirez, Levophed ordered. Nitro drip paused. Patient remains awake, alert, and oriented. 1010 -- Levophed started per protocol, Blood pressure currently 87/41. Continue to hold manual pressure to left groin. 1015 -- Blood pressure 114/54, no further bruising or hematoma to left groin noted. 1030 -- Blood pressure 158/66, levo paused, Continue to hold pressure to left groin. 1045 -- Blood pressure 162/67, nitro restarted at 5mcg/min. Released manual pressure to left groin. Left groin soft with large amount of bruising noted. Will continue to monitor. 1215 -- Dr. Dodge to bedside, currently has nitro infusing at 20mcg/min. Home meds reviewed per Dr. Dodge and orders given for 1 time dose of HCTZ 25mg and Losartin 50mg PO.
--- NOTE | 2025-02-21 16:21 | PC.NURSE ---
No bleeding or further bruising or hematoma noted to left groin. Assisted patient to side of bed and then to [facility] Tolerated well, voided w/o difficulty. Transferred to chair at bedside. Dressing remains c/d/i with no bleeding or hematoma noted. V/S stable, pulse remains palpable to left and right foot, no reports or pain or discomfort.
[2025-02-21 17:22] LABS: Basophils # 0.1 10^3/uL (0.0-0.1); Eosinophils # 0.1 10^3/uL (0.0-0.8); Eosinophils % 1.8 %; Hematocrit 30.8 % (36-47); Lymphocytes # 0.8 10^3/uL (0.8-4.8); Lymphocytes % 15.3 %; Mean Corpuscular HGB Conc 32.8 g/dL (30-55); Mean Corpuscular Hemoglobin 30.5 pg (27-33); Mean Corpuscular Volume 93.1 fl (85-98); Mean Platelet Volume 9.9 fL (7.4-10.4); Monocytes # 0.4 10^3/uL (0.2-0.9); Monocytes % 7.3 %; Neutrophils # 3.79 10^3/uL (1.8-7.7); Neutrophils % 74.4 %; Nucleated Red Blood Cells % 0 %; Platelet Count 75 10^3/cmm (157-399); Red Blood Count 3.31 10^6/uL (3.85-5.65); Red Cell Distribution Width 12.3 % (12.1-15.1); White Blood Count 5.09 10^3/uL (3.29-11.43)
--- NOTE | 2025-02-21 17:36 | PC.NURSE ---
Notified Dr. Mijares of Hgb of 10.1, Hct of 30.8, and platelet count of 75. Current blood pressure of 160/50. Order given to give 50mg of metoprolol tonight instead of 100mg and he would reassess in the AM. Cook cath order given for patient on strict bedrest tonight.
[2025-02-21] MEDS: atorvastatin 40 mg Tablet PO (20:43)
[2025-02-21] MEDS: metoprolol tartrate 50 mg Tablet PO (20:43)
[2025-02-22] VITALS (14 sets, daily range): BP systolic 144–186; BP diastolic 47–94; PULSE 60–68; RESP 11–15; TEMP 36.6–36.9; O2SAT 96–98; BMI 22.2
[2025-02-22] MEDS: sodium chloride 0.9% 1,000 ML 100 ML IV (02:23)
[2025-02-22 04:47] LABS: Basophils % 0.6 %; Eosinophils # 0.1 10^3/uL (0.0-0.8); Eosinophils % 2.3 %; Hematocrit 30.2 % (36-47); Lymphocytes # 0.8 10^3/uL (0.8-4.8); Lymphocytes % 13.3 %; Mean Corpuscular HGB Conc 33.1 g/dL (30-55); Mean Corpuscular Hemoglobin 31.4 pg (27-33); Monocytes # 0.4 10^3/uL (0.2-0.9); Monocytes % 7.1 %; Neutrophils # 4.72 10^3/uL (1.8-7.7); Neutrophils % 76.5 %; Nucleated Red Blood Cells % 0 %; Platelet Count 79 10^3/cmm (157-399); Red Blood Count 3.18 10^6/uL (3.85-5.65); Red Cell Distribution Width 12.4 % (12.1-15.1); White Blood Count 6.17 10^3/uL (3.29-11.43)
[2025-02-22 05:05] LABS: Anion Gap 13.4 (5-19); Blood Urea Nitrogen 20 mg/dL (8-23); Calcium 8.3 mg/dL (8.5-10.5); Carbon Dioxide 23 mmol/L (22-29); Chloride 109 mmol/L (98-107); Creatinine Clr Calc Pharmacy 38.0401; Glucose 89 mg/dL (65-115); Osmolality Calculated 296 mOsm/kg (285-295); Potassium 3.4 mmol/L (3.5-5.1); Sodium 142 mmol/L (136-145)
[2025-02-22] MEDS: clopidogrel 75 mg Tablet PO (09:09)
[2025-02-22] MEDS: levothyroxine 75 mcg Tablet PO (09:09)
[2025-02-22] MEDS: aspirin 81 mg EC Tablet PO (09:09)
[2025-02-22] MEDS: losartan 50 mg Tablet 25 MG PO (09:10)
[2025-02-22] MEDS: losartan 50 mg Tablet PO (09:30)
[2025-02-22] MEDS: metoprolol tartrate 50 mg Tablet 100 MG PO (09:30)
--- NOTE | 2025-02-22 13:06 | P.DS_ITS ---
Discharge Providers Date of Admission: 02/21/2025 Date of Discharge: February 22, 2025 Attending Provider at Admission: Dr. Dodge Attending Provider at Discharge: Oj Dodge M.D Primary Care Provider: Chucky Noland MD Reason for Visit Reason for Visit: I73.9 Brief History: The patient is an 84-year-old female presenting with evaluation and management s/p left lower extremity SFA balloon angioplasty. She reports recent balloon angioplasty on the left leg due to significant arterial blockage diagnosed as Peripheral Arterial Disease. Ongoing bilateral leg pain persists, particularly in feet, which worsens with increased activity of about 100 yards. She indicates intermittent swelling of the ankles post-procedure, associated with venous insufficiency. She states she has had chronic lower extremity edema and that she expected it to go away after fixing her artery blockage. I educated her that most likely her swelling was from venous insufficiency. She remains on an existing regimen of aspirin, Plavix, and a diuretic following an aortic valve replacement two years ago. She denies rest pain. Her symptoms are a combination of neuropathy, venous insufficiency, and arterial insufficiency. She needed a planned staged procedure for a severe right SFA stenosis. Hospital Course Hospital Course Stenting to the SFA on the right was performed. Post cath, Mynx closure device failed, and patient required manual pressure on the left groin. She developed some bleeding, hypotension and moderate hematoma at the site. She was placed on levophed and given a fluid bolus. Hematoma was massaged out, no active bleeding was present, and hematoma resolved. Soon after, she developed hypertension and was placed back on a nitro drip. We were able to titrate her medication and discontinue the nitro drip. Medication adjustments have been made a discharge and bp was much better controlled. Pulses were excellent on discharge. She was able to walk without comfort or difficulty. Physical Exam Narrative: General: No apparent distress, healthy appearing, well nourished HENMT: normoceophalic Muskuloskeletal: Full ROM Respiratory: Normal respiratory effort, clear to auscultation bilaterally throughout all lung jones, no use of accessory muscles Cardio: No JVD, regular rate, regular rhythm, S1 S2 normal, no murmurs, peripheral pulses 2+ radial palpated bilaterally Extremities: Full ROM, normal, normal capillary refill, no cyanosis, trace edema at the ankles bilaterally Neuro: Alert and oriented x4, no focal motor deficits Psych: Affect normal, denies suicidal ideation, mental status grossly normal Skin: mild bruising to the left groin, palpable femoral pulse to the left groin, area is soft and nontender, mild bruising at the left ankle, 2+ palpable PT and DP bilaterally with excellent 2 second capillary refill, bilateral lower extremities warm, varicose veins bilateral lower extremities Urinary Catheter Management: Cook: Cath Placed During This Visit: yes Reason for Continuing Indwelling Catheter: Accurate Measurement of Urinary Output in Critically Ill Patients Urinary Catheter Date of Insertion: 02/21/25 Urinary Catheter Time of Insertion: 17:45 Discharge Data Studies Completed and Pending Pending at discharge Category Date Time Status 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 Routine Exams 02/21/25 06:00 Taken Laboratory Results WBC 6.17 10^3/uL (3.29-11.43) 02/22/25 03:33 RBC 3.18 10^6/uL (3.85-5.65) L 02/22/25 03:33 Hgb 10.00 g/dL (11.27-16.99) L 02/22/25 03:33 Hct 30.2 % (36-47) L 02/22/25 03:33 MCV 95.0 fl (85-98) 02/22/25 03:33 MCH 31.4 pg (27-33) 02/22/25 03:33 MCHC 33.1 g/dL (30-55) 02/22/25 03:33 RDW 12.4 % (12.1-15.1) 02/22/25 03:33 Plt Count 79 10^3/cmm (157-399) L 02/22/25 03:33 MPV 10.0 fL (7.4-10.4) 02/22/25 03:33 Neut % (Auto) 76.5 % 02/22/25 03:33 Lymph % (Auto) 13.3 % 02/22/25 03:33 Beauregard % (Auto) 7.1 % 02/22/25 03:33 Eos % (Auto) 2.3 % 02/22/25 03:33 Baso % (Auto) 0.6 % 02/22/25 03:33 Neut # (Auto) 4.72 10^3/uL (1.8-7.7) 02/22/25 03:33 Lymph # (Auto) 0.8 10^3/uL (0.8-4.8) 02/22/25 03:33 Beauregard # (Auto) 0.4 10^3/uL (0.2-0.9) 02/22/25 03:33 Eos # (Auto) 0.1 10^3/uL (0.0-0.8) 02/22/25 03:33 Baso # (Auto) 0.0 10^3/uL (0.0-0.1) 02/22/25 03:33 Nucleated RBC % (auto) 0 % 02/22/25 03:33 Nucleated RBCs # 0.0 /100WBC 02/22/25 03:33 Sodium 142 mmol/L (136-145) 02/22/25 03:33 Potassium 3.4 mmol/L (3.5-5.1) L 02/22/25 03:33 Chloride 109 mmol/L (98-107) H 02/22/25 03:33 Carbon Dioxide 23 mmol/L (22-29) 02/22/25 03:33 Anion Gap 13.4 (5-19) 02/22/25 03:33 BUN 20 mg/dL (8-23) 02/22/25 03:33 Creatinine 0.9 mg/dL (0.5-0.9) 02/22/25 03:33 GFR Calculation Not Reportable 02/22/25 03:33 Glucose 89 mg/dL (65-115) 02/22/25 03:33 Calculated Osmolality 296 mOsm/kg (285-295) H 02/22/25 03:33 Calcium 8.3 mg/dL (8.5-10.5) L 02/22/25 03:33 Blood Type B Positive 02/21/25 10:23 Rho(D) Type Rh positive 02/21/25 10:23 Antibody Screen Negative 02/21/25 10:23 Procedures Performed Right lower extremity stenting to the SFA Vitals Last Vital Signs Temp 97.9 F 02/22/25 08:00 Pulse 65 02/22/25 10:00 Resp 11 L 02/22/25 10:00 BP 144/57 02/22/25 12:00 Pulse Ox 97 02/22/25 10:00 O2 Del Method Room Air 02/22/25 08:00 Discharge Plan Discharge Patient Disposition: Home Prescriptions: New losartan 50 mg Tablet 75 mg PO DAILY Qty: 45 0RF Continued multivitamin Tablet 1 tab PO DAILY silver biotics 1 tbsp 1 tab PO DAILY chromium picolinate 1,000 mcg tablet 1,000 mcg PO DAILY selenium 200 mcg capsule 200 mcg PO DAILY biotin 5,000 mcg tablet, sublingual 1,000 mcg SUBLINGUAL DAILY potassium gluconate 595 mg (99 mg) tablet 1,190 mg PO DAILY ascorbate calcium (vitamin C) 500 mg tablet 500 mg PO DAILY furosemide 20 mg tablet 20 mg PO DAILY Qty: 90 3RF levothyroxine 75 mcg tablet See Rx Instructions .ROUTE .COMPLEX Qty: 90 4RF Dose Instruction: TAKE 1 TABLET BY MOUTH EVERY DAY Rx Instructions: TAKE 1 TABLET BY MOUTH EVERY DAY fluticasone propionate 50 mcg/actuation spray,suspension See Rx Instructions .ROUTE .COMPLEX Qty: 48 4RF Dose Instruction: SPRAY 2 SPRAYS INTO EACH NOSTRIL EVERY DAY Rx Instructions: SPRAY 2 SPRAYS INTO EACH NOSTRIL EVERY DAY metoprolol tartrate 50 mg tablet 100 mg PO BID ferrous gluconate 324 mg (38 mg iron) tablet 324 mg PO DAILY atorvastatin 40 mg Tablet 40 mg PO BEDTIME Qty: 90 3RF clopidogrel 75 mg Tablet 75 mg PO DAILY Qty: 90 0RF aspirin 81 mg Tablet,Delayed Release (Dr/Ec) 81 mg PO DAILY Qty: 90 0RF Discontinued losartan 50 mg Tablet 25 mg PO DAILY Qty: 90 3RF Discharge Orders: Discharge Order (Routine); Ordered 02/22/25 Ordered By: Christy Maddox Diet: Low Salt, Low Cholesterol and Low Fat Activity: Limit activity as instructed Activity Restrictions/Additional Instructions: Discussed with patient no heavy lifting more than a gallon of milk as well as going up or down steps for 3 days. No driving for 3 days. Monitor for and report signs or symptoms of bleeding. Monitor for and report s/s of infection such as fever 101 or greater, swelling, redness or pain to the groin. F/U in the clinic in 7 days with CBC and BMP and fem site check. Continue dual antiplatelet therapy Print Language: Armenian Discharge Attestations Time Spent in Discharge Care*: less than 30 min Quality Metrics Clinical Quality Measures [ No reported AMI, CVA or VTE this stay] Coding Level of Care Code Acute Code for Chg Fwd
--- NOTE | 2025-02-22 13:55 | PC.NURSE ---
Discharged home with . Discharge instructions given all questions answered.
--- NOTE | 2025-02-23 09:48 | DCPLANNER ---
This senior writer called patient at home to schedule follow up with primary care sppointment on this date of 02-23-2025 at time of call 09:50 am ,follow up for that appointment scheduled 03-01-2025 at 10:[address]Jason Noland
== END 2025-02-22 13:48 | disposition home or self-care (01) ==
LOC: CCL 06:00 → ICU 15:04
PROVIDERS: Nurse Practitioner Family; PCP Family Medicine; Visit Provider Internal Medicine
DX: I70.221 Atherosclerosis of native arteries of extremities with rest pain, right leg (principal); I11.0 Hypertensive heart disease with heart failure; I50.9 Heart failure, unspecified; E78.5 Hyperlipidemia, unspecified; Z79.82 Long term (current) use of aspirin; E03.9 Hypothyroidism, unspecified; Z95.0 Presence of cardiac pacemaker; Z82.49 Family history of ischemic heart disease and other diseases of the circulatory system
CPT/HCPCS: 12345; 36415; 37226; 37228; 51702; 75716; 80048; 85025; 85347; 86850; 86900; 96374; 96375; 99152; 99153; C1725; C1760; C1769; C1876; C1887; C1894; C2623; G0269; J1644; J2250; J3010; J3490; J7030; J9999; Q0163; Q9967

== ENCOUNTER 2025-02-24 00:33 | Observation (INO) | payer MEDICARE, OTHER, SELFPAY ==
[2025-02-24] VITALS (24 sets, daily range): BP systolic 94–209; BP diastolic 30–79; PULSE 60–84; RESP 13–27; TEMP 36.2–37.1; O2SAT 95–99; BMI 22.2
--- NOTE | 2025-02-24 00:50 | USR_ITS ---
PROCEDURE INFORMATION: Exam: US Duplex Left Lower Extremity Arteries Or Arterial Bypass Grafts Exam date and time: 02/24/2025 1:59 AM Age: 84 years old Clinical indication: Other: Swelling/hematoma; Prior surgery; Surgery date: 3-7 days post-operative; Surgery type: Stent placement left groin 3 days ago TECHNIQUE: Imaging protocol: Left Real-time duplex scan of the arteries or arterial bypass grafts of the left lower extremity with 2-D kraft scale, color Doppler flow and spectral waveform analysis. Images documented and saved. COMPARISON: CT angio chest w abd pel w con 12/23/2022 7:53 AM FINDINGS: Left common femoral artery: No occlusion or significant stenosis. Normal waveform. Soft tissues: There is a small fluid collection superficial to the left common femoral artery measuring 10 x 3 x 6 mm with no color flow however minimal detectable spectral waveforms are noted concerning for a small pseudoaneurysms with a neck measuring 5 mm. US/[place] [id number] IMPRESSION: 1. There is a small fluid collection superficial to the left common femoral artery with no color flow however minimal detectable spectral waveforms are noted concerning for a small pseudoaneurysms with a neck measuring 5 mm. 2. Flow within the left common femoral artery is unremarkable.
--- NOTE | 2025-02-24 00:54 | W.ED.WOUNDLC ---
HPI - Wound/Laceration General: Chief Complaint: Wound/Laceration Stated Complaint: post op left groin bleeding Time Seen by Provider: 02/24/25 00:34 Source: patient Mode of arrival: ambulatory Limitations: no limitations History of Present Illness: 84-year-old female states that she had had a stent placed in her right leg 2 days ago states that it went to her left groin. She states she developed bruising swelling and some bleeding from the site in the left groin. States that it is painful rates her pain a 4 out of 10 no active bleeding at this time denies any fevers. Associated symptoms: Denies chills, fever(s), nausea or vomiting Related Data Home Medications ?Medication ?Instructions ?Recorded ?Confirmed chromium picolinate 1,000 mcg 1,000 mcg PO DAILY 03/19/20 02/24/25 tablet multivitamin 1 tab PO DAILY 03/19/20 02/24/25 selenium 200 mcg capsule 200 mcg PO DAILY 03/19/20 02/24/25 silver biotics 1 tab PO DAILY PRN immune support 03/19/20 02/24/25 ascorbate calcium (vitamin C) 500 500 mg PO DAILY 07/09/22 02/24/25 mg tablet biotin 5,000 mcg sublingual tablet 1,000 mcg sublingual DAILY 07/09/22 02/24/25 potassium gluconate 595 mg (99 mg) 1,190 mg PO DAILY 03/29/24 02/24/25 tablet metoprolol tartrate 50 mg tablet 100 mg PO BID 01/09/25 02/24/25 ferrous gluconate 324 mg (38 mg 324 mg PO DAILY 01/10/25 02/24/25 iron) tablet Previous Rx's ?Medication ?Instructions ?Recorded furosemide 20 mg tablet 20 mg PO DAILY #90 tabs 04/04/24 levothyroxine 75 mcg tablet See Rx Instructions .Route 01/01/25 .COMPLEX #90 tabs atorvastatin 40 mg tablet 40 mg PO BEDTIME #90 tabs 01/11/25 clopidogrel 75 mg tablet 75 mg PO DAILY #90 tabs 01/11/25 fluticasone propionate 50 See Rx Instructions .Route 02/22/25 mcg/actuation nasal .COMPLEX #48 mL spray,suspension losartan 50 mg tablet 75 mg (1.5 x 50 mg) PO DAILY #45 02/22/25 tabs Allergies Allergy/AdvReac Type Severity Reaction Status Date / Time cephalexin (From Keflex) Allergy Unknown unknown Verified 02/21/25 06:34 doxycycline Allergy Unknown unknown Verified 02/21/25 06:34 naldemedine Allergy Unknown unknown Verified 02/21/25 06:34 Sulfa (Sulfonamide Allergy Unknown unknown Verified 02/21/25 06:34 Antibiotics) amlodipine Allergy unknown Verified 02/21/25 06:34 carvedilol Allergy unknown Verified 02/21/25 06:34 cayenne pepper fruits Allergy ALGY-Anaphy Verified 02/22/25 13:34 laxis corn Allergy ADR-Gastrointestinal Verified 02/22/25 13:34 Upset moxifloxacin (From Avelox) Allergy unknown Verified 02/21/25 06:34 naproxen Allergy unknown Verified 02/21/25 06:34 olmesartan Allergy unknown Verified 02/21/25 06:34 potato Allergy ADR-Gastrointestinal Verified 02/22/25 13:34 Upset hydralazine AdvReac ADR-Dizzine Verified 02/21/25 06:34 ss Review of Systems Const: Denies: fever(s), chills, body aches or change in appetite ENMT: Denies: throat pain or dental pain Card: Denies: chest pain Resp: Denies: dyspnea GI: Denies: abdominal pain, nausea, vomiting or diarrhea Musc: Reports: extremity pain; Denies: neck pain or back pain Skin/Breast: Denies: rash Neuro: Denies: headache(s) PFSH ED PFSH: Medical History Anemia Thrombocytopenia Hypothyroid Hypertension Atrial fibrillation Pacemaker Aortic regurgitation Allergic rhinitis Surgical History History of permanent cardiac pacemaker placement Initially placed in 2011 and replaced in November 2021. History of bunionectomy S/P TAVR (transcatheter aortic valve replacement) Hx of cataract extraction History of tonsillectomy and adenoidectomy Hx of vein stripping Hx of foot surgery Family History Father Cancer Mother CAD (coronary artery disease) Hypertension Brother CAD (coronary artery disease) Diabetes Denies family history of Clotting disorder Dementia Chronic kidney disease (CKD) Suicide Anesthesia complication Bleeding disorder Lung disease Stroke Social History Smoking and tobacco/nicotine status: never used tobacco/nicotine Alcohol intake: never Substance/Drug Use: never Household members: spouse Marital status: Physical Exam Const: COMMON NORMALS: no acute distress, patient oriented x3 and healthy appearing HENMT: COMMON NORMALS: normocephalic and atraumatic HEAD & SCALP: normocephalic and atraumatic Eye: COMMON NORMALS: conjunctivae normal CONJUNCTIVA: Yes conjunctivae normal Neck/C-Spine: COMMON NORMALS: full ROM and supple Chest: COMMONS NORMALS: normal inspection of the chest Resp: COMMON NORMALS: normal respiratory effort Cardio: COMMON NORMALS: regular rate RATE: regular rate Extremity: COMMON NORMALS: full ROM Neuro: COMMON NORMALS: patient oriented x3, moves all extremities and no focal motor deficits Psych: COMMON NORMALS: mental status grossly normal, Normal thought process present and cooperative THOUGHT PROCESS: Normal thought process present Skin: COMMON NORMALS: no wounds NARRATIVE SKIN EXAM: Bruising noted to left groin no active bleeding does have some slight swelling distal pulses intact Course Vital Signs: Vital signs: Vital Signs Temperature 97.2 F L 02/24/25 11:43 Pulse Rate 84 02/24/25 11:43 Respiratory Rate 14 02/24/25 11:43 Blood Pressure 94/79 02/24/25 13:00 Pulse Oximetry 98 02/24/25 11:43 Oxygen Delivery Me thod Room Air 02/24/25 08:00 MDM - Wound/Laceration Medical Decision Making Patient presents here with possible pseudoaneurysm and spoke to wood repatcher who recommended pressure and admit for observation spoke to hospitalist Dr. Garland as well. Medical Records I reviewed the patient's medical records. Lab Data I reviewed the patient's lab results. 02/24/25 00:59 02/24/25 00:59 Radiology Impressions Arterial/Peripheral Duplex 02/24/25 00:50 IMPRESSION: 1. There is a small fluid collection superficial to the left common femoral artery with no color flow however minimal detectable spectral waveforms are noted concerning for a small pseudoaneurysms with a neck measuring 5 mm. 2. Flow within the left common femoral artery is unremarkable. Abdomen/Pelvis CTA 02/24/25 04:[address]: [address] evidence of pseudoaneurysm. 2. Generalized induration within the left inguinal region overlying the common femoral artery without focal abscess or collection. 3. Diverticulosis without evidence diverticulitis. Laboratory Results WBC 6.41 10^3/uL (3.29-11.43) 02/24/25 00:59 RBC 3.00 10^6/uL (3.85-5.65) L 02/24/25 00:59 Hgb 9.20 g/dL (11.27-16.99) L 02/24/25 00:59 Hct 27.3 % (36-47) L 02/24/25 00:59 MCV 91.0 fl (85-98) 02/24/25 00:59 MCH 30.7 pg (27-33) 02/24/25 00:59 MCHC 33.7 g/dL (30-55) 02/24/25 00:59 RDW 12.5 % (12.1-15.1) 02/24/25 00:59 Plt Count 71 10^3/cmm (157-399) L 02/24/25 00:59 MPV 9.6 fL (7.4-10.4) 02/24/25 00:59 Neut % (Auto) 70.4 % 02/24/25 00:59 Lymph % (Auto) 15.9 % 02/24/25 00:59 Garrard % (Auto) 9.2 % 02/24/25 00:59 Eos % (Auto) 3.4 % 02/24/25 00:59 Baso % (Auto) 0.9 % 02/24/25 00:59 Neut # (Auto) 4.51 10^3/uL (1.8-7.7) 02/24/25 00:59 Lymph # (Auto) 1.0 10^3/uL (0.8-4.8) 02/24/25 00:59 Garrard # (Auto) 0.6 10^3/uL (0.2-0.9) 02/24/25 00:59 Eos # (Auto) 0.2 10^3/uL (0.0-0.8) 02/24/25 00:59 Baso # (Auto) 0.1 10^3/uL (0.0-0.1) 02/24/25 00:59 Nucleated RBC % (auto) 0 % 02/24/25 00:59 Nucleated RBCs # 0.0 /100WBC 02/24/25 00:59 PT 14.30 SECONDS (12.1-14.9) 02/24/25 00:59 INR 1.04 (0.8-1.2) 02/24/25 00:59 Sodium 138 mmol/L (136-145) 02/24/25 00:59 Potassium 3.8 mmol/L (3.5-5.1) 02/24/25 00:59 Chloride 106 mmol/L (98-107) 02/24/25 00:59 Carbon Dioxide 23 mmol/L (22-29) 02/24/25 00:59 Anion Gap 12.8 (5-19) 02/24/25 00:59 BUN 27 mg/dL (8-23) H 02/24/25 00:59 Creatinine 1.1 mg/dL (0.5-0.9) H 02/24/25 00:59 GFR Calculation Not Reportable 02/24/25 00:59 Glucose 95 mg/dL (65-115) 02/24/25 00:59 Calculated Osmolality 291 mOsm/kg (285-295) 02/24/25 00:59 Lactic Acid 0.5 mmol/L (0.5-2.2) 02/24/25 00:59 Calcium 9.0 mg/dL (8.5-10.5) 02/24/25 00:59 Total Bilirubin 0.6 mg/dL (0.15-1.2) 02/24/25 00:59 AST 40 U/L (0-32) H 02/24/25 00:59 ALT 18 U/L (0-33) 02/24/25 00:59 Alkaline Phosphatase 84 U/L (35-105) 02/24/25 00:59 C-Reactive Protein 43.4 mg/L (0.0-4.9) H 02/24/25 00:59 Total Protein 5.8 g/dL (6.6-8.7) L 02/24/25 00:59 Albumin 3.6 g/dL (3.5-5.2) 02/24/25 00:59 Globulin 2.2 g/dL (1.3-4.6) 02/24/25 00:59 Procalcitonin 0.14 ng/mL (0-0.5) 02/24/25 00:59 All radiology interpretation(s) finalized by discharge Discharge Plan Discharge Patient Disposition: Admitted As Inpatient Admit Provider: Grant Sands Clinical Impression: Pseudoaneurysm of femoral artery Condition: Stable Coding Level of Care Code ED Turbine Mechanic for Alexx Zhu
[2025-02-24 01:06] LABS: Basophils # 0.1 10^3/uL (0.0-0.1); Basophils % 0.9 %; Eosinophils # 0.2 10^3/uL (0.0-0.8); Eosinophils % 3.4 %; Hematocrit 27.3 % (36-47); Lymphocytes % 15.9 %; Mean Corpuscular HGB Conc 33.7 g/dL (30-55); Mean Corpuscular Hemoglobin 30.7 pg (27-33); Mean Platelet Volume 9.6 fL (7.4-10.4); Monocytes # 0.6 10^3/uL (0.2-0.9); Monocytes % 9.2 %; Neutrophils # 4.51 10^3/uL (1.8-7.7); Neutrophils % 70.4 %; Nucleated Red Blood Cells % 0 %; Platelet Count 71 10^3/cmm (157-399); Red Cell Distribution Width 12.5 % (12.1-15.1); White Blood Count 6.41 10^3/uL (3.29-11.43)
[2025-02-24 01:16] LABS: INR 1.04 (0.8-1.2)
--- NOTE | 2025-02-24 03:27 | PC.NURSE ---
pressure held to the left groin for 10 min per MD orders. pt tollerated well, sand bag placed to site and pt instructed to leave in place. will continue to monitor.
[2025-02-24 03:51] LABS: Lactic Sepsis W/Reflex 0.5 mmol/L (0.5-2.2)
[2025-02-24 03:52] LABS: Alanine Aminotransferase 18 U/L (0-33); Albumin Level 3.6 g/dL (3.5-5.2); Alkaline Phosphatase 84 U/L (35-105); Anion Gap 12.8 (5-19); Aspartate Amino Transferase 40 U/L (0-32); Blood Urea Nitrogen 27 mg/dL (8-23); C Reactive Protein 43.4 mg/L (0.0-4.9); Carbon Dioxide 23 mmol/L (22-29); Chloride 106 mmol/L (98-107); Creatinine Clr Calc Pharmacy 31.0584; Globulin 2.2 g/dL (1.3-4.6); Glucose 95 mg/dL (65-115); Osmolality Calculated 291 mOsm/kg (285-295); Potassium 3.8 mmol/L (3.5-5.1); Sodium 138 mmol/L (136-145); Total Bilirubin 0.6 mg/dL (0.15-1.2); Total Protein 5.8 g/dL (6.6-8.7)
--- NOTE | 2025-02-24 03:57 | PM.CONSULT ---
Providers/Reason For Consult Consulting Physician/Specialty*: cardiology Reason for Consult*: ht, left groin psudoaneurysm Primary Care Provider: Chucky Noland MD History of Present Illness History of Present Illness Destiny Dow is a 84 year old female with chronic anemia, chronic thrombocytopenia, atrial fibrillation not on anticoagulant therapy, recent history of peripheral angioplasty on aspirin/Plavix, history of pacemaker, who presents [facility] for left groin swelling, erythema, bleeding from surgical site. Currently patient is alert oriented x 3, follows all commands, she has a sandbag over her left groin, she tells me that late last night, she started developing bleeding from the left groin site, does report pain at surgical site, so she came to the emergency room for evaluation. In the ER no active bleeding was found, but she had an ultrasound of her left groin she was found to have a 5 mm pseudoaneurysm. Patient denies any abdominal pain, no flank pain, hemoglobin 9.2, platelet count 71,000, creatinine 1.1, INR 1.04 -Surgical site was seen, no active bleeding but extensive erythema/swelling/bruising/pain left groin site, measuring 10 x 10 cm -Reviewed prior records, patient had stenting to left lower extremity SFA balloon angioplasty for peripheral arterial disease, post cath there was Mynx closure device failed, required pressure on the left groin, patient developed some bleeding, hypotension, moderate hematoma at the site, she required Levophed/fluid bolus, hematomas massaged out, she was able to walk home, pulses were excellent eventually discharged home -Ultrasound as below US/[place] [id number] IMPRESSION: 1. There is a small fluid collection superficial to the left common femoral artery with no color flow however minimal detectable spectral waveforms are noted concerning for a small pseudoaneurysms with a neck measuring 5 mm. 2. Flow within the left common femoral artery is unremarkable. -Currently on examination, has bilateral DP PT pulses, good capillary refill, no mottling -I spoke to vascular surgery at [facility], waiting for callback - I spoke to Dr. Dodge, discussed case in detail, recommended to hold aspirin, continue Plavix, Dr. Dodge agrees to be the primary, medicine will be consultants Review of Systems Card: Denies: chest pain Resp: Denies: dyspnea GI: Denies: abdominal pain Medications/Allergies Home Medications ?Medication ?Instructions ?Recorded ?Confirmed ?Last Taken ?Type chromium picolinate 1,000 mcg 1,000 mcg PO DAILY 03/19/20 02/20/25 02/21/25 05:15 History tablet multivitamin 1 tab PO DAILY 03/19/20 02/20/25 02/21/25 05:15 History selenium 200 mcg capsule 200 mcg PO DAILY 03/19/20 02/20/25 02/21/25 05:15 History silver biotics 1 tab PO DAILY 03/19/20 02/20/25 02/21/25 05:15 History ascorbate calcium (vitamin C) 500 500 mg PO DAILY 07/09/22 02/20/25 02/21/25 05:15 History mg tablet biotin 5,000 mcg sublingual tablet 1,000 mcg sublingual DAILY 07/09/22 02/20/25 02/21/25 05:15 History potassium gluconate 595 mg (99 mg) 1,190 mg PO DAILY 03/29/24 02/20/25 02/21/25 05:15 History tablet furosemide 20 mg tablet 20 mg PO DAILY #90 tabs 04/04/24 02/20/25 02/20/25 Rx levothyroxine 75 mcg tablet See Rx Instructions .Route 01/01/25 02/20/25 02/21/25 05:15 Rx .COMPLEX #90 tabs metoprolol tartrate 50 mg tablet 100 mg PO BID 01/09/25 02/20/25 02/21/25 05:15 History ferrous gluconate 324 mg (38 mg 324 mg PO DAILY 01/10/25 02/20/25 02/21/25 05:15 History iron) tablet aspirin 81 mg tablet,delayed 81 mg PO DAILY #90 tabs 01/11/25 02/20/25 02/21/25 05:15 Rx release atorvastatin 40 mg tablet 40 mg PO BEDTIME #90 tabs 01/11/25 02/20/25 02/20/25 Rx clopidogrel 75 mg tablet 75 mg PO DAILY #90 tabs 01/11/25 02/20/25 02/21/25 05:15 Rx fluticasone propionate 50 See Rx Instructions .Route 02/22/25 Unknown Rx mcg/actuation nasal .COMPLEX #48 mL spray,suspension losartan 50 mg tablet 75 mg (1.5 x 50 mg) PO DAILY #45 02/22/25 Unknown Rx tabs Allergies Allergy/AdvReac Type Severity Reaction Status Date / Time cephalexin (From Keflex) Allergy Unknown unknown Verified 02/21/25 06:34 doxycycline Allergy Unknown unknown Verified 02/21/25 06:34 naldemedine Allergy Unknown unknown Verified 02/21/25 06:34 Sulfa (Sulfonamide Allergy Unknown unknown Verified 02/21/25 06:34 Antibiotics) amlodipine Allergy unknown Verified 02/21/25 06:34 carvedilol Allergy unknown Verified 02/21/25 06:34 cayenne pepper fruits Allergy ALGY-Anaphy Verified 02/22/25 13:34 laxis corn Allergy ADR-Gastrointestinal Verified 02/22/25 13:34 Upset moxifloxacin (From Avelox) Allergy unknown Verified 02/21/25 06:34 naproxen Allergy unknown Verified 02/21/25 06:34 olmesartan Allergy unknown Verified 02/21/25 06:34 potato Allergy ADR-Gastrointestinal Verified 02/22/25 13:34 Upset hydralazine AdvReac ADR-Dizzine Verified 02/21/25 06:34 ss PFSH Acute PFSH: Medical History Anemia Thrombocytopenia Hypothyroid Hypertension Atrial fibrillation Pacemaker Aortic regurgitation Allergic rhinitis Surgical History History of permanent cardiac pacemaker placement Initially placed in 2011 and replaced in November 2021. History of bunionectomy S/P TAVR (transcatheter aortic valve replacement) Hx of cataract extraction History of tonsillectomy and adenoidectomy Hx of vein stripping Hx of foot surgery Family History Father Cancer Mother CAD (coronary artery disease) Hypertension Brother CAD (coronary artery disease) Diabetes Denies family history of Clotting disorder Dementia Chronic kidney disease (CKD) Suicide Anesthesia complication Bleeding disorder Lung disease Stroke Social History Smoking and tobacco/nicotine status: never used tobacco/nicotine Alcohol intake: never Substance/Drug Use: never Household members: spouse Marital status: Vitals/I&O/Wt Last Vital Signs Temp 98.8 F 02/24/25 00:42 Pulse 69 02/24/25 03:23 Resp 18 02/24/25 03:23 BP 177/49 02/24/25 03:23 Pulse Ox 99 02/24/25 03:23 O2 Del Method Room Air 02/24/25 03:23 02/23/25 02/23/25 02/24/25 14:59 22:59 06:59 Intake Total 0 / 0 Balance 0 / 0 Weight last 48 hrs Weight 49.895 kg Physical Exam Const: COMMON NORMALS: no acute distress and patient oriented x3 Eye: COMMON NORMALS: Equal, round and reactive pupils present and EOMs intact bilaterally PUPIL: Yes Equal, round and reactive pupils present Resp: COMMON NORMALS: normal respiratory effort, No retractions, No use of accessory muscles and clear to auscultation bilaterally AUSCULTATION: clear to auscultation bilaterally Cardio: COMMON NORMALS: regular rate, regular rhythm, S1 normal heart sound present and S2 normal heart sound present RATE: regular rate RHYTHM: regular rhythm HEART SOUNDS: S1 normal heart sound present and S2 normal heart sound present GI: COMMON NORMALS: Normal to inspection, nondistended, normoactive bowel sounds present and non-tender Extremity: COMMON NORMALS: no pedal edema Neuro: COMMON NORMALS: patient oriented x3, CN's II-XII intact bilaterally and moves all extremities Psych: COMMON NORMALS: mental status grossly normal Skin: NARRATIVE SKIN EXAM: Left groin, erythema, swelling, bruising, tenderness, 10 x 10 cm, OTHER: DP PT pulses palpable bilaterally, 2+ Data 02/24/25 00:59 02/24/25 00:59 A&P Assessment and plan (1) Pseudoaneurysm following procedure: Plan Left groin, small pseudoaneurysm, measuring 5 mm 5 mm pseudoaneurysm. Patient denies any abdominal pain, no flank pain, hemoglobin 9.2, platelet count 71,000, creatinine 1.1, INR 1.04 -Surgical site was seen, no active bleeding but extensive erythema/swelling/bruising/pain left groin site, measuring 10 x 10 cm -Reviewed prior records, patient had stenting to left lower extremity SFA balloon angioplasty for peripheral arterial disease, post cath there was Mynx closure device failed, required pressure on the left groin, patient developed some bleeding, hypotension, moderate hematoma at the site, she required Levophed/fluid bolus, hematomas massaged out, she was able to walk home, pulses were excellent eventually discharged home -Ultrasound as below US/[place] [id number] IMPRESSION: 1. There is a small fluid collection superficial to the left common femoral artery with no color flow however minimal detectable spectral waveforms are noted concerning for a small pseudoaneurysms with a neck measuring 5 mm. 2. Flow within the left common femoral artery is unremarkable. -Currently on examination, has bilateral DP PT pulses, good capillary refill, no mottling -I spoke to vascular surgery at [facility], waiting for call back - I spoke to Dr. Dodge, discussed case in detail, recommended to hold aspirin, continue Plavix, Dr. Dodge agrees to be the primary, medicine will be consultants Plan -Cardiology to be primary -Monitor on medical floors -keep on bedrest, keep pressure/sandbag over left groin -Continue aspirin -Hold Plavix - Hypertensive urgency, resume home blood pressure medications, -Hypothyroidism Home levothyroxine -Hold Lovenox -SCDs for DVT prophylaxis -full code PDMP PDMP Reviewed: Not Reviewed Consult Attestations Medical Necessity Statement: Patient requires hospitalization for left groin, pseudoaneurysm, with history of anemia, thrombocytopenia, hypertension Diagnoses Pseudoaneurysm following procedure T81.718A; I72.9
[2025-02-24 03:59] LABS: Procalcitonin 0.14 ng/mL (0-0.5)
--- NOTE | 2025-02-24 04:38 | CTR_ITS ---
PROCEDURE INFORMATION: Exam: CTA Abdomen and Pelvis With Contrast Exam date and time: 02/24/2025 5:13 AM Age: 84 years old Clinical indication: Discoloration or erythema and other: Common femoral pseudoaneurysm; Other: Left groin; Prior surgery; Surgery date: 6+ months; Surgery type: Tavr. Pacer; Bruising and bleeding to site of femoral sheath from cath procedure on 02/21/2025. Left common femoral pseudoaneurysm noted on US. ; Additional info: Left groin pseudoanuerysm, post cath TECHNIQUE: Imaging protocol: Computed tomographic angiography of the abdomen and pelvis with contrast. Exam focused on the arteries. 3D rendering (Not supervised by radiologist): MIP and/or 3D reconstructed images were created by the technologist. Radiation optimization: All CT scans at this facility use at least one of these dose optimization techniques: automated exposure control; mA and/or kV adjustment per patient size (includes targeted exams where dose is matched to clinical indication); or iterative reconstruction. Contrast material: OMNI 350; Contrast volume: 100 ml; Contrast route: INTRAVENOUS (IV); COMPARISON: CT angio chest w abd pel w con 12/23/2022 7:53 AM RADIATION DOSE METRICS: Total DLP (mGy-cm): 321.78 FINDINGS: Aorta: No aortic aneurysm. No aortic dissection. Celiac trunk and mesenteric arteries: No occlusion or significant stenosis. Renal arteries: No occlusion or significant stenosis. Right iliac arteries: No occlusion or significant stenosis. Left iliac arteries: No occlusion or significant stenosis. Other arteries: Calcified atherosclerotic plaque noted. Liver: No mass. Gallbladder and biliary ducts: Unremarkable. No calcified stones. No ductal dilation. Pancreas: Unremarkable. No mass. No ductal dilation. Spleen: Unremarkable. No splenomegaly. Adrenal glands: Unremarkable. No mass. Kidneys and ureters: Unremarkable. No solid mass. No hydronephrosis. Stomach and bowel: Moderate diverticulosis is noted. No evidence of diverticulitis. No obstruction. Appendix: No evidence of appendicitis. Intraperitoneal space: Unremarkable. No free air. No significant fluid collection. Lymph nodes: Unremarkable. No enlarged lymph nodes. Urinary bladder: Unremarkable. No mass. Reproductive: Unremarkable as visualized. Bones/joints: No acute fracture. Soft tissues: Generalized induration within the left inguinal region overlying the common femoral artery without focal abscess or collection. CT/CT angio abdomen pelvis [id number]: 1[address] No CT evidence of pseudoaneurysm. 2. Generalized induration within the left inguinal region overlying the common femoral artery without focal abscess or collection. 3. Diverticulosis without evidence diverticulitis.
[2025-02-24] MEDS: cloNIDine 0.1 mg Tablet PO (05:10)
--- NOTE | 2025-02-24 05:25 | ECG_ITS ---
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 Measurements Intervals [place] Rate: 67 P: 148 TN: 168 QRS: -34 QRSD: 137 T: 138 QT: 402 QTc: 425 Interpretive Statements Sinus rhythm LEFT BUNDLE BRANCH BLOCK [120+ ms QRS DURATION, 80+ ms Q/S IN V1/V2, 85+ ms R IN I/aVL/V5/V6] Compared to ECG 11/12/2021 05:07:09 Left bundle-branch block now present Electronically Signed On 02-24-2025 13:09:59 CDT by Jose Enrique East M.D. [email or web address]
[2025-02-24] MEDS: iohexol 350 mg/mL 500 mL Btl (per mL) IV (05:27)
[2025-02-24] MEDS: pantoprazole 40 mg SDV IVP (07:02)
[2025-02-24] MEDS: sodium chloride 0.9% 1,000 ML 50 ML IV (07:02)
--- NOTE | 2025-02-24 09:32 | PM.HP ---
Providers/Chief Complaint Admitting Physician: Grant Sands MD Primary Care Provider: Chucky Noland MD Chief Complaint: post op left groin bleeding History of Present Illness Destiny Dow is a 84 year old female with past medical history of peripheral artery disease and recent stenting of the right SFA from left common femoral access came back to hospital with left groin discomfort and bruising. According to patient she felt it was getting hard and was concerned. Earlier this week she had peripheral intervention done of right SFA. Postprocedure Mynx closure device failed and manual pressure was held. She developed a hematoma. With pressure hold, she got hypotensive likely secondary to vagal response briefly but otherwise stayed hypertensive. At time of discharge of her hematoma had resolved. She was discharged home on aspirin and Plavix. She does have thrombocytopenia. Overnight she had Doppler ultrasound that showed possible pseudoaneurysm but no significant Doppler flow was seen into it. CT scan was performed that did not show evidence of pseudoaneurysm. Currently no significant hematoma since pressure was held overnight. Review of Systems Card: Denies: chest pain Resp: Denies: dyspnea GI: Denies: abdominal pain Medications/Allergies Home Medications ?Medication ?Instructions ?Recorded ?Confirmed ?Last Taken ?Type chromium picolinate 1,000 mcg 1,000 mcg PO DAILY 03/19/20 02/24/25 02/23/25 History tablet multivitamin 1 tab PO DAILY 03/19/20 02/24/25 02/23/25 History selenium 200 mcg capsule 200 mcg PO DAILY 03/19/20 02/24/25 02/23/25 History silver biotics 1 tab PO DAILY PRN immune support 03/19/20 02/24/25 02/21/25 05:15 History ascorbate calcium (vitamin C) 500 500 mg PO DAILY 07/09/22 02/24/25 02/23/25 History mg tablet biotin 5,000 mcg sublingual tablet 1,000 mcg sublingual DAILY 07/09/22 02/24/25 02/23/25 History potassium gluconate 595 mg (99 mg) 1,190 mg PO DAILY 03/29/24 02/24/25 02/23/25 History tablet furosemide 20 mg tablet 20 mg PO DAILY #90 tabs 04/04/24 02/24/25 02/23/25 Rx levothyroxine 75 mcg tablet See Rx Instructions .Route 01/01/25 02/24/25 02/23/25 Rx .COMPLEX #90 tabs metoprolol tartrate 50 mg tablet 100 mg PO BID 01/09/25 02/24/25 02/23/25 History ferrous gluconate 324 mg (38 mg 324 mg PO DAILY 01/10/25 02/24/25 02/23/25 History iron) tablet aspirin 81 mg tablet,delayed 81 mg PO DAILY #90 tabs 01/11/25 02/24/25 02/23/25 Rx release atorvastatin 40 mg tablet 40 mg PO BEDTIME #90 tabs 01/11/25 02/24/25 02/23/25 Rx clopidogrel 75 mg tablet 75 mg PO DAILY #90 tabs 01/11/25 02/24/25 02/23/25 Rx fluticasone propionate 50 See Rx Instructions .Route 02/22/25 02/24/25 02/24/25 Rx mcg/actuation nasal .COMPLEX #48 mL spray,suspension losartan 50 mg tablet 75 mg (1.5 x 50 mg) PO DAILY #45 02/22/25 02/24/25 02/23/25 Rx tabs Allergies Allergy/AdvReac Type Severity Reaction Status Date / Time cephalexin (From Keflex) Allergy Unknown unknown Verified 02/21/25 06:34 doxycycline Allergy Unknown unknown Verified 02/21/25 06:34 naldemedine Allergy Unknown unknown Verified 02/21/25 06:34 Sulfa (Sulfonamide Allergy Unknown unknown Verified 02/21/25 06:34 Antibiotics) amlodipine Allergy unknown Verified 02/21/25 06:34 carvedilol Allergy unknown Verified 02/21/25 06:34 cayenne pepper fruits Allergy ALGY-Anaphy Verified 02/22/25 13:34 laxis corn Allergy ADR-Gastrointestinal Verified 02/22/25 13:34 Upset moxifloxacin (From Avelox) Allergy unknown Verified 02/21/25 06:34 naproxen Allergy unknown Verified 02/21/25 06:34 olmesartan Allergy unknown Verified 02/21/25 06:34 potato Allergy ADR-Gastrointestinal Verified 02/22/25 13:34 Upset hydralazine AdvReac ADR-Dizzine Verified 02/21/25 06:34 ss PFSH Acute PFSH: Medical History Anemia Thrombocytopenia Hypothyroid Hypertension Atrial fibrillation Pacemaker Aortic regurgitation Allergic rhinitis Surgical History History of permanent cardiac pacemaker placement Initially placed in 2011 and replaced in November 2021. History of bunionectomy S/P TAVR (transcatheter aortic valve replacement) Hx of cataract extraction History of tonsillectomy and adenoidectomy Hx of vein stripping Hx of foot surgery Family History Father Cancer Mother CAD (coronary artery disease) Hypertension Brother CAD (coronary artery disease) Diabetes Denies family history of Clotting disorder Dementia Chronic kidney disease (CKD) Suicide Anesthesia complication Bleeding disorder Lung disease Stroke Social History Smoking and tobacco/nicotine status: never used tobacco/nicotine Alcohol intake: never Substance/Drug Use: never Household members: spouse Marital status: Vitals/I&O/Wt Last Vital Signs Temp 98.1 F 02/24/25 08:00 Pulse 61 02/24/25 08:00 Resp 14 02/24/25 08:00 BP 152/39 02/24/25 08:00 Pulse Ox 97 02/24/25 08:00 O2 Del Method Room Air 02/24/25 08:00 02/23/25 02/24/25 02/24/25 22:59 06:59 14:59 Intake Total 0 / 0 360 / 360 Balance 0 / 0 360 / 360 Weight last 48 hrs Weight 110 lb Weight 110 lb Physical Exam Narrative: GENERAL: Patient is alert, awake and oriented x3. [] NECK: No jugular vein distension. [] HEENT: No cyanosis. No icterus. No pallor. [] HEART: Regular S1 and S2. No murmur, rub or gallop. [] LUNGS: Clear to auscultate bilaterally. [] CENTRAL NERVOUS SYSTEM: Grossly nonfocal. [] EXTREMITIES: Lower extremities with no edema. Left groin has bruising. No significant swelling. Mild tenderness. Data 02/24/25 00:59 02/24/25 00:59 Micro: Microbiology 02/24/25 04:10 Blood Culture - Preliminary Blood SPECIMEN COLLECTED 02/24/25 04:07 Blood Culture - Preliminary Blood SPECIMEN COLLECTED A&P Assessment and plan (1) Pseudoaneurysm following procedure: (2) Peripheral arterial disease: (3) Thrombocytopenia: (4) Pacemaker: (5) Hypertension: Qualifiers: Hypertension type: essential hypertension Qualified Code(s): I10 - Essential (primary) hypertension (6) Atrial fibrillation: Qualifiers: Atrial fibrillation type: paroxysmal Qualified Code(s): I48.0 - Paroxysmal atrial fibrillation Plan There was concern for possible small sized pseudoaneurysm on initial ultrasound. CT scan is not showing it. Patient is stable for discharge. Will stop aspirin. Continue Plavix. In 1 week will repeat ultrasound to confirm resolution. Appreciate hospitalist team recommendations. PDMP PDMP Reviewed: Not Reviewed Attestations Medical Necessity Statement*: Care not expected to cross 2 midnights. Femoral access site has bruising but no significant hematoma. No large pseudoaneurysm seen on imaging. Plan for discharge home with follow-up as outpatient. Coding Level of Care Code Acute Code for [facility] Fwd Diagnoses Pseudoaneurysm following procedure T81.718A; I72.9 Peripheral arterial disease I73.9 Thrombocytopenia D69.6 Pacemaker Z95.0 Essential hypertension I10 Hypertension type: essential hypertension Paroxysmal atrial fibrillation I48.0 Atrial fibrillation type: paroxysmal
--- NOTE | 2025-02-24 10:00 | P.DS_ITS ---
Discharge Providers Date of Admission: 02/24/25 04:09 Date of Discharge: February 24, 2025 Attending Provider at Admission: Grant Sands MD Attending Provider at Discharge: Grant Sands MD Primary Care Provider: Chucky Noland MD Diagnoses at Discharge Discharge Diagnosis (1) Pseudoaneurysm following procedure: Status: Acute (2) Peripheral arterial disease: Status: Acute (3) Thrombocytopenia: Status: Acute (4) Pacemaker: Status: Acute (5) Hypertension: Status: Acute Qualifiers: Hypertension type: essential hypertension Qualified Code(s): I10 - Essential (primary) hypertension (6) Atrial fibrillation: Status: Acute Qualifiers: Atrial fibrillation type: paroxysmal Qualified Code(s): I48.0 - Paroxysmal atrial fibrillation Reason for Visit Reason for Visit: Post peripheral angiogram groin swelling Brief History: 84 year old female with past medical his tory of peripheral artery disease and recent stenting of the right SFA from left common femoral access came back to hospital with left groin discomfort and bruising. According to patient she felt it was getting hard and was concerned. Earlier this week she had peripheral intervention done of right SFA. Postprocedure Mynx closure device failed and manual pressure was held. She developed a hematoma. With pressure hold, she got hypotensive likely secondary to vagal response briefly but otherwise stayed hypertensive. At time of discharge of her hematoma had resolved. She was discharged home on aspirin and Plavix. She does have thrombocytopenia. Hospital Course Hospital Course Overnight she had Doppler ultrasound that showed possible pseudoaneurysm but no significant Doppler flow was seen into it. CT scan was performed that did not show evidence of pseudoaneurysm. Currently no significant hematoma since pressure was held overnight. Patient is stable and will be discharged home on plavix. Aspirin stopped as has thrombocytopenia. We will obtain arterial doppler of the left femoral artery in 1 week to reassess the site. Patient discharged home in a stable condition with ER warning signs and symptoms discussed Physical Exam Narrative: GENERAL: Patient is alert, awake and oriented x3. [] NECK: No jugular vein distension. [] HEENT: No cyanosis. No icterus. No pallor. [] HEART: Regular S1 and S2. No murmur, rub or gallop. [] LUNGS: Clear to auscultate bilaterally. [] CENTRAL NERVOUS SYSTEM: Grossly nonfocal. [] EXTREMITIES: Lower extremities with no edema. Left groin has bruising. No significant swelling. Mild tenderness. Discharge Data Studies Completed and Pending Completed Studies During Hospitalization Category Date Time Status CT angio abdomen pelvis 25576 Stat Cat Scan 02/24/25 04:38 Completed US arterial duplex groin LT [CV arterial dup groin LT Ultrasound 02/24/25 00:50 Completed [id number]] Stat Pending at discharge Category Date Time Status Blood Culture Stat Lab 02/24/25 04:10 Results Radiology Impressions Arterial/Peripheral Duplex 02/24/25 00:50 IMPRESSION: 1. There is a small fluid collection superficial to the left common femoral artery with no color flow however minimal detectable spectral waveforms are noted concerning for a small pseudoaneurysms with a neck measuring 5 mm. 2. Flow within the left common femoral artery is unremarkable. Abdomen/Pelvis CTA 02/24/25 04:[address]: [address] evidence of pseudoaneurysm. 2. Generalized induration within the left inguinal region overlying the common femoral artery without focal abscess or collection. 3. Diverticulosis without evidence diverticulitis. Laboratory Results WBC 6.41 10^3/uL (3.29-11.43) 02/24/25 00:59 RBC 3.00 10^6/uL (3.85-5.65) L 02/24/25 00:59 Hgb 9.20 g/dL (11.27-16.99) L 02/24/25 00:59 Hct 27.3 % (36-47) L 02/24/25 00:59 MCV 91.0 fl (85-98) 02/24/25 00:59 MCH 30.7 pg (27-33) 02/24/25 00:59 MCHC 33.7 g/dL (30-55) 02/24/25 00:59 RDW 12.5 % (12.1-15.1) 02/24/25 00:59 Plt Count 71 10^3/cmm (157-399) L 02/24/25 00:59 MPV 9.6 fL (7.4-10.4) 02/24/25 00:59 Neut % (Auto) 70.4 % 02/24/25 00:59 Lymph % (Auto) 15.9 % 02/24/25 00:59 [place] % (Auto) 9.2 % 02/24/25 00:59 Eos % (Auto) 3.4 % 02/24/25 00:59 Baso % (Auto) 0.9 % 02/24/25 00:59 Neut # (Auto) 4.51 10^3/uL (1.8-7.7) 02/24/25 00:59 Lymph # (Auto) 1.0 10^3/uL (0.8-4.8) 02/24/25 00:59 [place] # (Auto) 0.6 10^3/uL (0.2-0.9) 02/24/25 00:59 Eos # (Auto) 0.2 10^3/uL (0.0-0.8) 02/24/25 00:59 Baso # (Auto) 0.1 10^3/uL (0.0-0.1) 02/24/25 00:59 Nucleated RBC % (auto) 0 % 02/24/25 00:59 Nucleated RBCs # 0.0 /100WBC 02/24/25 00:59 PT 14.30 SECONDS (12.1-14.9) 02/24/25 00:59 INR 1.04 (0.8-1.2) 02/24/25 00:59 Sodium 138 mmol/L (136-145) 02/24/25 00:59 Potassium 3.8 mmol/L (3.5-5.1) 02/24/25 00:59 Chloride 106 mmol/L (98-107) 02/24/25 00:59 Carbon Dioxide 23 mmol/L (22-29) 02/24/25 00:59 Anion Gap 12.8 (5-19) 02/24/25 00:59 BUN 27 mg/dL (8-23) H 02/24/25 00:59 Creatinine 1.1 mg/dL (0.5-0.9) H 02/24/25 00:59 GFR Calculation Not Reportable 02/24/25 00:59 Glucose 95 mg/dL (65-115) 02/24/25 00:59 Calculated Osmolality 291 mOsm/kg (285-295) 02/24/25 00:59 Lactic Acid 0.5 mmol/L (0.5-2.2) 02/24/25 00:59 Calcium 9.0 mg/dL (8.5-10.5) 02/24/25 00:59 Total Bilirubin 0.6 mg/dL (0.15-1.2) 02/24/25 00:59 AST 40 U/L (0-32) H 02/24/25 00:59 ALT 18 U/L (0-33) 02/24/25 00:59 Alkaline Phosphatase 84 U/L (35-105) 02/24/25 00:59 C-Reactive Protein 43.4 mg/L (0.0-4.9) H 02/24/25 00:59 Total Protein 5.8 g/dL (6.6-8.7) L 02/24/25 00:59 Albumin 3.6 g/dL (3.5-5.2) 02/24/25 00:59 Globulin 2.2 g/dL (1.3-4.6) 02/24/25 00:59 Procalcitonin 0.14 ng/mL (0-0.5) 02/24/25 00:59 Vitals Last Vital Signs Temp 98.1 F 02/24/25 08:00 Pulse 61 02/24/25 08:00 Resp 14 02/24/25 08:00 BP 152/39 02/24/25 08:00 Pulse Ox 97 02/24/25 08:00 O2 Del Method Room Air 02/24/25 08:00 Discharge Plan Discharge Patient Disposition: Home Condition: Stable Prescriptions: Continued multivitamin Tablet 1 tab PO DAILY silver biotics 1 tbsp 1 tab PO DAILY PRN (Reason: immune support) chromium picolinate 1,000 mcg tablet 1,000 mcg PO DAILY selenium 200 mcg capsule 200 mcg PO DAILY biotin 5,000 mcg tablet, sublingual 1,000 mcg SUBLINGUAL DAILY potassium gluconate 595 mg (99 mg) tablet 1,190 mg PO DAILY ascorbate calcium (vitamin C) 500 mg tablet 500 mg PO DAILY furosemide 20 mg tablet 20 mg PO DAILY Qty: 90 3RF levothyroxine 75 mcg tablet See Rx Instructions .ROUTE .COMPLEX Qty: 90 4RF Dose Instruction: TAKE 1 TABLET BY MOUTH EVERY DAY Rx Instructions: TAKE 1 TABLET BY MOUTH EVERY DAY fluticasone propionate 50 mcg/actuation spray,suspension See Rx Instructions .ROUTE .COMPLEX Qty: 48 4RF Dose Instruction: SPRAY 2 SPRAYS INTO EACH NOSTRIL EVERY DAY Rx Instructions: SPRAY 2 SPRAYS INTO EACH NOSTRIL EVERY DAY losartan 50 mg Tablet 75 mg PO DAILY Qty: 45 0RF metoprolol tartrate 50 mg tablet 100 mg PO BID ferrous gluconate 324 mg (38 mg iron) tablet 324 mg PO DAILY atorvastatin 40 mg Tablet 40 mg PO BEDTIME Qty: 90 3RF clopidogrel 75 mg Tablet 75 mg PO DAILY Qty: 90 0RF Discontinued aspirin 81 mg Tablet,Delayed Release (Dr/Ec) 81 mg PO DAILY Qty: 90 0RF Discharge Orders: Discharge Order (Routine); Ordered 02/24/25 Ordered By: Oj Dodge Referrals: Chucky Noland MD [Primary Care Provider] - (We have notified your physician's clinic of the need for a follow-up appointment to be scheduled. If you have not heard from them within the next 2 business days, please call them directly. ) Patient Instructions: Peripheral Artery Disease (DC) Discharge Attestations Time Spent in Discharge Care*: less than 30 min Quality Metrics Clinical Quality Measures [ No reported AMI, CVA or VTE this stay] Coding Level of Care Code Acute Code for Chg Fwd Diagnoses Pseudoaneurysm following procedure T81.718A; I72.9 Peripheral arterial disease I73.9 Thrombocytopenia D69.6 Pacemaker Z95.0 Essential hypertension I10 Hypertension type: essential hypertension Paroxysmal atrial fibrillation I48.0 Atrial fibrillation type: paroxysmal
[2025-02-24] MEDS: multivitamin therapeutic Tablet 1 TAB PO (10:22)
[2025-02-24] MEDS: levothyroxine 75 mcg Tablet PO (10:22)
[2025-02-24] MEDS: clopidogrel 75 mg Tablet PO (10:22)
[2025-02-24] MEDS: metoprolol tartrate 50 mg Tablet 100 MG PO (10:23)
--- NOTE | 2025-02-24 11:42 | PC.CHAP ---
Pastoral Care Encounter/Spiritual Assessment Type of Contact [] Declined knit tubing dyer visit [] Patient/Family/Request visit [] Outpatient visit [] Follow-up visit [] Physician referral [] Code/Alert [x] Routine visit [] Staff referral [] Actively dying [] Patient sleeping [] Family support [] [] Out of room [] Palliative care [] [] Receiving care in room [] Pre-surgical visit [] Trauma [] Long length of stay [] ICU visit [] Other: Relational/Emotional Strength [x] Patient feels connected with others/family/visitors/staff [] Distress [] Loneliness/isolation [] Abandonment Spirituality of Patient [x] Person of Princess [x] Attends Congregational of their Princess [x] Believes in Prayer [] Reads Bible or Oriental Orthodox materials [] There are Spiritual issues to be addressed Academic Dean Interventions [x] Prayer [x] Active listening [x] Non-anxious presence [] Spiritual/emotional support [] Crisis/trauma care [] Spiritual counseling [] Bereavement support [] Provided bereavement packet [] Provided Bible/devotional materials [] Provided toy/stuffed animal, coloring book to patient or family member [] Provided Communion [] Anointing/[place] [] Salvation [] Completed spiritual assessment [] Other: Impact on Illness or Injury [] Angry [] Fearful [] Anxious [] Often cries [] Exhaustion [] Unable to work [] Unable to attend sikh [] Unable to walk/stand [] Unable to read [] Unable to drive [] Unable to eat/drink [] Unable to sleep [] Unable to be with family [] Patient intubated [] Other: Summary P+1 Going Home. Prayer of Praise and travel Tess and protection Time spent with patient 20 Min
== END 2025-02-24 11:30 | disposition home or self-care (01) ==
LOC: ER 04:50 → CSU 06:07
PROVIDERS: Admitting Provider Family Medicine; Emergency Provider Emergency Medicine; PCP Family Medicine; Visit Provider Student in an Organized Health Care Education/Training Program
DX: T81.718A Complication of other artery following a procedure, not elsewhere classified, initial encounter (principal); I72.9 Aneurysm of unspecified site; I73.9 Peripheral vascular disease, unspecified; D69.6 Thrombocytopenia, unspecified; Z95.0 Presence of cardiac pacemaker; Z95.2 Presence of prosthetic heart valve; I48.0 Paroxysmal atrial fibrillation; I10 Essential (primary) hypertension; Z95.820 Peripheral vascular angioplasty status with implants and grafts; Z82.49 Family history of ischemic heart disease and other diseases of the circulatory system; E03.9 Hypothyroidism, unspecified; Z79.82 Long term (current) use of aspirin
CPT/HCPCS: 36415; 74174; 80053; 83605; 84145; 85025; 85610; 86140; 87040; 93005; 93926; 94664; 96360; 96361; 99285; G0378; J2470; J7030; J9999

== ENCOUNTER 2025-03-05 13:53 | Outpatient (CLI) | payer MEDICARE, OTHER, SELFPAY ==
--- NOTE | 2025-03-05 14:02 | USCV_ITS ---
Destiny Dow Age: 84 Gender: F : 1940 Exam Date: 03/05/2025 14:50 Ordering Phys: Oj Dodge M.D ([email or web address]) Technologist: LUISA Exam Location[place] [facility] [place] Indication: Aortic Valve Replacement BP: 140 / 65 HR: 62 Rhythm: Sinus Technical Quality: Adequate MEASUREMENTS (Male / Female) Normal Values 2D ECHO LV Diastolic Diameter PLAX 4.2 cm 4.2 - 5.9 / 3.9 - 5.3 cm IVS Diastolic Thickness 1.5 cm 0.6 - 1.0 / 0.6 - 0.9 cm IVS Systolic Thickness 1.4 cm LVPW Diastolic Thickness 1.1 cm 0.6 - 1.0 / 0.6 - 0.9 cm LVPW Systolic Thickness 1.2 cm LVOT Diameter 1.8 cm LV Ejection Fraction 2D Teich 42.2 % LV Ejection Fraction MOD 4C 63.7 % LV Ejection Fraction MOD 2C 56.7 % LV Ejection Fraction 2C AL 61.9 % LA Diameter 2.9 cm RA Systolic Volume 4C AL 27.5 ml RA Systolic Volume 4C MOD 26.4 ml LA Sys Volume AL 40.4 cm cubed LA Sys Volume Index AL 27.9 cm cubed/m squared Aorta at Sinotubular Diameter 2.1 cm M-MODE LA Ao Ratio MM 1.7 AV Cusp Separation MM 1.5 cm DOPPLER AV Peak Velocity 170.3 cm/s LVOT Peak Velocity 96.0 cm/s AV Area Cont Eq vti 1.7 cm squared AV Area Cont Eq pk 1.4 cm squared MV Peak Velocity 152.0 cm/s MV Area PHT 2.0 cm squared Mitral E to A Ratio 0.7 TR Peak Velocity 197.0 cm/s TR Peak Gradient 15.5 mmHg TV Peak E Velocity 72.0 cm/s PV Peak Velocity 98.0 cm/s FINDINGS Left Ventricle Left ventricle is normal in size. Mild to moderate left ventricular hypertrophy. LV systolic function is normal with EF of 60 to 65%. No regional wall motion abnormalities are seen. Grade 1 diastolic dysfunction Right Ventricle Normal in size and function Right Atrium Normal in size Left Atrium Normal in size Mitral Valve Moderate to severe mitral annular calcification. Mild mitral regurgitation. Aortic Valve Grossly appears to be bioprosthetic aortic valve. No significant stenosis. Trace aortic regurgitation. Tricuspid Valve Mild tricuspid regurgitation. Insufficient TR jet to calculate RVSP Pulmonic Valve Not well visualized Pericardium Normal Aorta Normal in size IVC Not well visualized. CONCLUSIONS LV systolic function is normal wtih EF of 60-65% Grade 1 diastolic dysfunction Mild to moderate left ventricular hypertrophy Mild mitral regurgitation Trace aortic regurgitation. Bioprosthetic aortic valve. Compared to prior echocardiogram from 2022, no significant changes are seen. Oj Dodge MD (Electronically Signed) Final Date: 13 Mar 2025 12:08 S
--- NOTE | 2025-03-05 16:15 | USR_ITS ---
PROCEDURE INFORMATION: Exam: US Duplex Left Lower Extremity Arteries Or Arterial Bypass Grafts Exam date and time: 03/05/2025 2:15 PM Age: 84 years old Clinical indication: Condition or disease; Other: Possible pseudo seen lcfa on prior; Additional info: Pseudoaneurysm of femoral artery TECHNIQUE: Imaging protocol: Left Real-time duplex scan of the arteries or arterial bypass grafts of the left lower extremity with 2-D kraft scale, color Doppler flow and spectral waveform analysis. Images documented and saved. COMPARISON: US CV arterial dup [facility] [id number] 02/24/2025 1:59 AM FINDINGS: Left external iliac artery: Left common iliac artery: Left common iliac artery: No occlusion or significant stenosis. Triphasic waveform. Peak systolic velocity 125 cm/s. Left common femoral artery: No occlusion or significant stenosis. Biphasic waveform. Peak systolic velocity 168 cm/s. Left superficial femoral artery: [place] hypoechoic area adjacent to the proximal superficial femoral artery measures 0.4 cm. This appears similar to the examination from 02/24/2025. No flow on color imaging. No occlusion or significant stenosis. Biphasic waveform. Peak systolic velocity 156 cm/s proximally and 109 cm/s distally. Left popliteal artery: No occlusion or significant stenosis. Biphasic waveform. Peak systolic velocity 87 cm/s. Left calf/foot arteries: No occlusion or significant stenosis in the visualized arteries. Normal waveforms. Dorsalis pedis artery is patent. US/CV arterial duplex [facility] [id number] IMPRESSION: 1. [place] hypoechoic area adjacent to the proximal superficial femoral artery without flow may represent resolving hematoma or postprocedural changes. Resolving pseudoaneurysm without flow is also possible. No evidence of active pseudoaneurysm on this examination. 2. No stenosis or occlusion.
== END 2025-03-05 13:54 | disposition home or self-care (01) ==
LOC: RAD 13:54
PROVIDERS: PCP Family Medicine; Visit Provider Internal Medicine
DX: I72.4 Aneurysm of artery of lower extremity (principal); R93.1 Abnormal findings on diagnostic imaging of heart and coronary circulation; I34.81 Nonrheumatic mitral (valve) annulus calcification; I34.0 Nonrheumatic mitral (valve) insufficiency; Z96.89 Presence of other specified functional implants; I07.1 Rheumatic tricuspid insufficiency; R93.89 Abnormal findings on diagnostic imaging of other specified body structures; I73.9 Peripheral vascular disease, unspecified; I10 Essential (primary) hypertension; R60.9 Edema, unspecified; S30.1XXA Contusion of abdominal wall, initial encounter; X58.XXXA Exposure to other specified factors, initial encounter
CPT/HCPCS: 93306; 93926; 99214

== ENCOUNTER 2025-03-06 09:15 | Outpatient (CLI) | payer MEDICARE, OTHER, SELFPAY | END 2025-03-06 09:16 | LOC: RAD 09:16 | PROVIDERS: PCP Family Medicine; Visit Provider Nurse Practitioner Family | DX: L76.32 Postprocedural hematoma of skin and subcutaneous tissue following other procedure (principal); I73.9 Peripheral vascular disease, unspecified; Z79.01 Long term (current) use of anticoagulants; I10 Essential (primary) hypertension; Z09 Encounter for follow-up examination after completed treatment for conditions other than malignant neoplasm; Z95.0 Presence of cardiac pacemaker | CPT/HCPCS: 99214 ==

== ENCOUNTER → 2025-03-14 10:26 | Outpatient (BNVA) | payer MEDICARE, OTHER, SELFPAY | PROVIDERS: PCP Family Medicine; Visit Provider Family Medicine | DX: I10 Essential (primary) hypertension (principal); Z95.2 Presence of prosthetic heart valve | CPT/HCPCS: 80048; 85025 ==

== ENCOUNTER → 2025-04-05 09:25 | Outpatient (BNVA) | payer MEDICARE, OTHER, SELFPAY | PROVIDERS: PCP Family Medicine; Visit Provider Nurse Practitioner Family | DX: I73.9 Peripheral vascular disease, unspecified (principal); I83.93 Asymptomatic varicose veins of bilateral lower extremities; Z79.02 Long term (current) use of antithrombotics/antiplatelets; Z95.0 Presence of cardiac pacemaker; Z95.2 Presence of prosthetic heart valve | CPT/HCPCS: 99214 ==

== ENCOUNTER → 2025-05-24 08:49 | Outpatient (BNVA) | payer MEDICARE, OTHER, SELFPAY | PROVIDERS: PCP Family Medicine; Visit Provider Internal Medicine | DX: Z45.018 Encounter for adjustment and management of other part of cardiac pacemaker (principal) | CPT/HCPCS: 93296 ==

== ENCOUNTER 2025-06-08 20:12 | Emergency (ER) | payer MEDICARE, OTHER, SELFPAY ==
[2025-06-08 20:14] VITALS: PULSE 73; RESP 16; TEMP 36.7; O2SAT 98; BMI 22.9
--- OUTSIDE RECORDS SUMMARY | 2025-06-08 20:17 | XMS_ITS | Clinical Summary ---
Author Organization [facility] Based Address [address] [place] [address] Care Team Providers Care Service Engineer Name Role Phone Unavailable Primary Care Provider Unavailabl e Allergies Active Allergy Reactions Criticality Noted Date Comments Amlodipine Unknown 12/03/2022 [place] Unknown 12/03/2022 Carvedilol Unknown 12/03/2022 Cayenne Pepper Shortness of Breath/Wheezing,Swe lling High 12/03/2022 Cephalexin Shortness of Breath/Wheezing High 12/03/2022 Doxycycline Hyclate (Bulk) Unknown 12/03/2022 Iodinated Contrast Media Unknown 01/27/2023 No specific symptoms. Pt states they always pre treat me because i'm so sensitive to medications Moxifloxacin Unknown 12/03/2022 Naldecon Unknown 12/03/2022 Naproxen Unknown 12/03/2022 Olmesartan Unknown 12/03/2022 Sulfa (Sulfonamide Antibiotics) Unknown 12/03/2022 Medications levothyroxine 75 mcg tablet Take 75 mcg by mouth daily. Active fluticasone propionate 50 mcg/actuation nasal spray,suspensio n Administer 2 Sprays in each nostril daily. Active metoprolol tartrate 50 mg tablet Take 50 mg by mouth 2 times daily. Active chromium picolinate 1,000 mcg tablet Take by mouth daily. Active calcium-vitamin D3-vitamin K (VIACTIV) 500-100-40 mg-unit-mcg Tablet, Chewable Take by mouth daily. Active VITAMIN K2 ORAL Take by mouth daily. Active magnesium aspartate/vit B6/Zn (ZINC MAGNESIUM ASPARTATE ORAL) Take 5 mg by mouth. Active selenium 200 mcg capsule Take by mouth daily. Active POTASSIUM-99 ORAL Take by mouth daily. Active ascorbate calcium (DANAY-C ORAL) Take by mouth daily. Active OTHER daily. Eye promise restore Active folic acid/multivit-m in/lutein (CENTRUM SILVER ORAL) Take by mouth daily. Active OTHER daily. Silver Biotics, 1-2 Tbsps daily Active OTHER 1 time daily as needed. Similasan Complete Eye Relief Active hydrALAZINE (APRESOLINE) 25 mg tablet TAKE 1 TABLET BY MOUTH 3 TIMES DAILY 270 Tablet 3 3 Active furosemide (LASIX) 20 mg tablet Take 1 Tablet by mouth daily. 4 Active ferrous gluconate 324 mg (38 mg iron) tablet take 1 tablet by mouth every day 90 Tablet 3 4 Active Active Problems Problem Noted Date Diagnosed Date Status post transcatheter aortic valve replaceme nt 01/28/2023 Chronic diastolic CHF (conge stive heart failure), NYHA class 3 01/27/2023 HTN (hypertension) 01/27/2023 Pacemaker 01/27/2023 PAF (paroxysmal atrial fibrillation) 01/27/2023 Nonrheumatic aortic valve insufficiency 01/28/20 Stage 3a chronic kidney disease 01/27/2023 Severe aortic valve stenosis 12/08/2022 Hypothyroidism 12/08/2022 Resolved Problems Problem Noted Date Diagnosed Date Resolved Date Pre-op evaluation 12/03/2022 12/08/2022 Overview (12/03/2022): Added automatically from request for surgery [id number] SOBOE (shortness of breath on exertion) 12/03/2022 12/08/2022 Overview (12/03/2022): Added automatically from request for surgery [id number] Social History Tobacco Use Types Packs/Day Years Used Date Smoking Tobacco: Never Tobacco Cessation:Counseling Given: Not Answered Comments No Sex and Gender Information Value Date Recorded Sex Assigned at Not on file Legal Sex 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 [employer] Gender Identity Not on file Sexual Orientation Not on file Last Filed Vital Signs Vital Sign Reading Time Taken Comments Blood Pressure 132/74 02/03/2024 12:48 PM CDT Pulse 82 02/03/2024 12:48 PM CDT Temperature 36.5 C (97.7 F) 01/30/2023 7:24 AM CDT Respiratory Rate 14 01/30/2023 7:24 AM CDT Oxygen Saturation 94% 01/30/2023 7:24 AM CDT Inhaled Oxygen Concentration - - Weight 48.4 kg (106 lb 9.6 oz) 02/03/2024 12:48 PM CDT Height 152.4 cm (5') 02/03/2024 12:48 PM CDT Body Mass Index 20.82 02/03/2024 12:48 PM CDT Plan of Treatment Health Maintenance Due Date Last Done Comments DTAP/TDAP/TD VACCINES (1 - Tdap) 1961 PNEUMOCOCCAL VACCINE 50+ YEARS (1 of 2 - PCV) 04/05/19 61 ZOSTER VACCINE (1 of 2) 1992 OSTEOPOROSIS SCREENING 2007 RSV VACCINE (60+ or ) (1 - 1-dose 75+ series) 2017 INFLUENZA VACCINE (#1) 2025 Medical Devices Implanted Type Area Centralized Traffic Control Operator Device Identifier Shelf Expiration Date Model / Serial / Lot Closure Perclose Prostyle Sut Mediate 68145-18 - [id number] Implanted:Qty: 1 on 01/27/2023 by Liliya Tarango MD at [facility] Closure Device Right: Groin WATERS- VASC DEVICE 11/07/2024 95708-40 / [id number] / [id number] Closure Perclose Prostyle Sut Mediate 75153-11 - [id number] Implanted:Qty: 1 on 01/27/2023 by Liliya Tarango MD at [facility] Closure Device Right: Groin WATERS- VASC DEVICE 11/07/2024 28284-86 / [id number] / [id number] Closure Perclose Prostyle Sut Mediate 94563-73 - [id number] Implanted:Qty: 1 on 01/27/2023 by Liliya Tarango MD at [facility] Closure Device Left: Groin WATERS- VASC DEVICE 11/07/2024 19012-18 / / [id number] Vlv Aort Evolut Fx Tavr 26mm Evolutfx-26 - [id number] Implanted:Qty: 1 on 01/27/2023 by Liliya Tarango MD at [facility] Valve Left: Heart [employer]- HEART VALVE 09/07/2024 EVOLUTFX- 26 / [id number] / [id number] Vlv Aort Evolut Fx Tavr 26mm Evolutfx-26 - [id number] Implanted:Qty: 1 on 01/27/2023 by Liliya Tarango MD at [facility] Valve Left: Heart [employer]- HEART VALVE 11/18/2024 EVOLUTFX- 26 / [id number] / Insurance MEDICARE PART A AND B [facility] LIFE INS SUPP [place] [id number] Advance Directives For more information, please contact: [phone] * Full Code (Latest Code Status on File) Date Activated Date Inactivated Comments 01/27/2023 7:46 AM 01/30/2023 12:30 PM * Full Code Date Activated Date Inactivated Comments 12/09/2022 6:22 AM 12/09/2022 6:04 PM
--- NOTE | 2025-06-08 20:35 | XRR_ITS ---
PROCEDURE INFORMATION: Exam: XR Chest Exam date and time: 06/08/2025 8:39 PM Age: 85 years old Clinical indication: Pain; Chest pressure; Prior surgery; Surgery date: 6+ months; Surgery type: Pacemaker, coronary stent, tavr; Additional info: Chest pain TECHNIQUE: Imaging protocol: Radiologic exam of the chest. Views: 1 view. COMPARISON: CR XR chest 2V* [id number] 01/28/2023 6:57 PM FINDINGS: Tubes, catheters and devices: A pacemaker device is present, and its leads are in appropriate position. Lungs: There is calcified granuloma in the left lower lobe. Visualized portions of the lungs are clear. There is no pulmonary venous congestion. Pleural spaces: Unremarkable. No pleural effusion. No pneumothorax. Heart/Mediastinum: There are findings of TAVR. Heart is within normal limits of size. Bones/joints: Unremarkable. XR/XR chest 1V portable [id number] IMPRESSION: No acute finding.
--- NOTE | 2025-06-08 20:36 | ECG_ITS ---
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1940 Requested By: Dave Hoff Order Number: [id number] Reading MD: FLORENCE GREENBERG Measurements Intervals [place] Rate: 69 P: 77 HI: 172 QRS: -66 QRSD: 133 T: 81 QT: 394 QTc: 425 Interpretive Statements SINUS RHYTHM WITH OCCASIONAL VENTRICULAR PREMATURE COMPLEXES POSSIBLE LEFT ATRIAL ENLARGEMENT [-0.1mV P-WAVE IN V1/V2] INTRAVENTRICULAR CONDUCTION DELAY [130+ ms QRS DURATION] INFERIOR MYOCARDIAL INFARCTION , POSSIBLY ACUTE [40+ ms Q WAVE AND/OR ST/T ABNORMALITY IN II/aVF] ANTEROSEPTAL MYOCARDIAL INFARCTION , PROBABLY indeterminate [40+ ms Q WAVE IN V1-V4] Compared to ECG 02/24/2025 05:30:31 Ventricular premature complex(es) now present Intraventricular conduction delay now present Electronically Signed On 06-11-2025 13:59:26 CDT by FLORENCE GREENBERG [email or web address]
[2025-06-08 20:49] LABS: Hematocrit 36.5 % (36-47); Hemoglobin 12.30 g/dL (11.27-16.99); Mean Corpuscular HGB Conc 33.7 g/dL (30-55); Mean Corpuscular Hemoglobin 31.1 pg (27-33); Mean Corpuscular Volume 92.4 fl (85-98); Nucleated Red Blood Cells % 0 %; Platelet Count 63 10^3/cmm (157-399); Red Blood Count 3.95 10^6/uL (3.85-5.65); White Blood Count 4.57 10^3/uL (3.29-11.43)
[2025-06-08 20:50] VITALS: BP 160/90; PULSE 65; RESP 18; O2SAT 99
[2025-06-08 21:06] LABS: Troponin(5th) Baseline 23 ng/L (0-10)
[2025-06-08 21:11] LABS: Alanine Aminotransferase 24 U/L (0-33); Albumin Level 4.2 g/dL (3.5-5.2); Alkaline Phosphatase 102 U/L (35-105); Anion Gap 14.0 (5-19); Aspartate Amino Transferase 49 U/L (0-32); Blood Urea Nitrogen 32 mg/dL (8-23); Calcium 9.2 mg/dL (8.5-10.5); Carbon Dioxide 28 mmol/L (22-29); Chloride 104 mmol/L (98-107); Creatinine Clr Calc Pharmacy 33.5752; Globulin 1.7 g/dL (1.3-4.6); Glucose 102 mg/dL (65-115); Magnesium 2.2 mg/dL (1.7-2.3); Osmolality Calculated 301 mOsm/kg (285-295); Potassium 4.0 mmol/L (3.5-5.1); Sodium 142 mmol/L (136-145); Total Protein 5.9 g/dL (6.6-8.7)
[2025-06-08] MEDS: hyDRALAzine 20 mg/mL INJ 1 mL 10 MG IVP (21:12)
[2025-06-08 21:25] VITALS: BP 150/78; PULSE 73; RESP 16; O2SAT 100
[2025-06-08 21:30] VITALS: BP 148/80; PULSE 81; RESP 21; O2SAT 99
--- NOTE | 2025-06-08 22:12 | PC.NURSE ---
called to patients room . pt states feeling weird . when asked to explain weird feeling patient unable to describe. pts blood pressure rechecked and found to be 148/80. pt other VSS. provider notified of change in patients care. pt appears stable. will continue to monitor
--- NOTE | 2025-06-08 22:36 | ECG_ITS ---
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: : 1940 Requested By: Dave Hoff Order Number: [id number] Luke MD: FLORENCE GREENBERG Measurements Intervals [place] Rate: 74 P: 78 [place]: 172 QRS: -73 QRSD: 136 T: 80 QT: 392 QTc: 437 Interpretive Statements SINUS RHYTHM WITH OCCASIONAL SUPRAVENTRICULAR PREMATURE COMPLEXES POSSIBLE LEFT ATRIAL ENLARGEMENT [-0.1mV P-WAVE IN V1/V2] LEFT AXIS DEVIATION [QRS AXIS < -30] LEFT BUNDLE BRANCH BLOCK [120+ ms QRS DURATION, 80+ ms Q/S IN V1/V2, 85+ ms R IN I/aVL/V5/V6] Compared to ECG 06/08/2025 20:18:10 Left-axis deviation now present Left bundle-branch block now present Ventricular premature complex(es) no longer present Intraventricular conduction delay no longer present Myocardial infarct finding no longer present Electronically Signed On 06-11-2025 14:10:36 CDT by FLORENCE GREENBERG [email or web address]
[2025-06-08 22:59] VITALS: BP 130/76; PULSE 77; RESP 16; O2SAT 97
[2025-06-08 23:16] LABS: Troponin 5 2HR 23.37 ng/L (0-10); Troponin 5 2HR Delta 0.37 ABS# (0-10)
--- NOTE | 2025-06-08 23:22 | W.ED.ARRPALP ---
HPI - Arrhythmia/Palpitations General: Chief Complaint: Arrhythmia/Palpitations Stated Complaint: Heart rate low, High BP Time Seen by Provider: 06/08/25 20:14 History of Present Illness: Patient is an 85-year-old female who presents to the ED with concerns about her pacemaker function and elevated blood pressure. She reports that after sitting down after supper, she began feeling strange and decided to check her vital signs with a wrist blood pressure monitor at home. The patient states her Medtronic pacemaker is set to not allow her pulse to go below 60 bpm, but her home device showed a heart rate of 40 bpm, and at times would not register a reading at all. She also noted her blood pressure was rising during these measurements, which concerned her further. The patient denies chest pain but describes a funny feeling in her neck and chest area. She denies shortness of breath, nausea, or vomiting. She has no history of heart attacks but reports having stents placed in her legs. The patient states her pacemaker was placed because her heart would quit or become too slow. She is due for her evening dose of blood pressure medication (metoprolol 100 mg twice daily). Related Data Home Medications ?Medication ?Instructions ?Recorded ?Confirmed chromium picolinate 1,000 mcg 1,000 mcg PO DAILY 03/19/20 04/24/25 tablet multivitamin 1 tab PO DAILY 03/19/20 04/24/25 selenium 200 mcg capsule 200 mcg PO DAILY 03/19/20 04/24/25 silver biotics 1 tab PO DAILY PRN immune support 03/19/20 04/24/25 ascorbate calcium (vitamin C) 500 500 mg PO DAILY 07/09/22 04/24/25 mg tablet biotin 5,000 mcg sublingual tablet 1,000 mcg sublingual DAILY 07/09/22 04/24/25 potassium gluconate 595 mg (99 mg) 1,190 mg PO DAILY 03/29/24 04/24/25 tablet metoprolol tartrate 50 mg tablet 100 mg PO BID 01/09/25 04/24/25 ferrous gluconate 324 mg (38 mg 324 mg PO BID 03/14/25 04/24/25 iron) tablet Previous Rx's ?Medication ?Instructions ?Recorded levothyroxine 75 mcg tablet See Rx Instructions .Route 01/01/25 .COMPLEX #90 tabs atorvastatin 40 mg tablet 40 mg PO BEDTIME #90 tabs 01/11/25 fluticasone propionate 50 See Rx Instructions .Route 02/22/25 mcg/actuation nasal .COMPLEX #48 mL spray,suspension furosemide 20 mg tablet 20 mg PO DAILY #90 tabs 03/26/25 losartan 50 mg tablet See Rx Instructions .Route 04/04/25 .COMPLEX #135 tabs clopidogrel 75 mg tablet See Rx Instructions .Route 04/09/25 .COMPLEX #90 tabs Allergies Allergy/AdvReac Type Severity Reaction Status Date / Time cephalexin (From Keflex) Allergy Unknown unknown Verified 04/05/25 09:42 doxycycline Allergy Unknown unknown Verified 04/05/25 09:42 naldemedine Allergy Unknown unknown Verified 04/05/25 09:42 Sulfa (Sulfonamide Allergy Unknown unknown Verified 04/05/25 09:42 Antibiotics) amlodipine Allergy unknown Verified 04/05/25 09:42 carvedilol Allergy unknown Verified 04/05/25 09:42 cayenne pepper fruits Allergy ALGY-Anaphy Verified 04/05/25 09:42 laxis corn Allergy ADR-Gastrointestinal Verified 04/05/25 09:42 Upset moxifloxacin (From Avelox) Allergy unknown Verified 04/05/25 09:42 naproxen Allergy unknown Verified 04/05/25 09:42 olmesartan Allergy unknown Verified 04/05/25 09:42 potato Allergy ADR-Gastrointestinal Verified 04/05/25 09:42 Upset hydralazine AdvReac ADR-Dizzine Verified 04/05/25 09:42 ss PFSH ED PFS: Medical History (Updated 06/08/25 @ 23:25 by Dave Hoff MD) Pseudoaneurysm following procedure Anemia Thrombocytopenia Hypothyroid Hypertension Atrial fibrillation Pacemaker Aortic regurgitation Allergic rhinitis Surgical History History of permanent cardiac pacemaker placement Initially placed in 2011 and replaced in November 2021. History of bunionectomy S/P TAVR (transcatheter aortic valve replacement) Hx of cataract extraction History of tonsillectomy and adenoidectomy Hx of vein stripping Hx of foot surgery Family History Father Cancer Mother CAD (coronary artery disease) Hypertension Brother CAD (coronary artery disease) Diabetes Denies family history of Clotting disorder Dementia Chronic kidney disease (CKD) Suicide Anesthesia complication Bleeding disorder Lung disease Stroke Social History Smoking and tobacco/nicotine status: never used tobacco/nicotine Alcohol intake: never Substance/Drug Use: never Household members: spouse Marital status: Physical Exam Narrative: EXAM NARRATIVE: General: Alert, non-toxic appearing, in no apparent distress HEENT: Head normocephalic and atraumatic. Mucous membranes moist. Neck: Supple Respiratory: No increased work of breathing, no wheezing Cardiac: Regular rate and rhythm, 2+ pulses in all extremities Abdomen: Soft, non-distended, no rebound or guarding Neuro: Cranial nerves grossly intact, no focal motor or sensory deficits noted Course Vital Signs: Vital signs: Vital Signs Temperature 98.0 F 06/08/25 20:14 Pulse Rate 77 06/08/25 22:59 Respiratory Rate 16 06/08/25 22:59 Blood Pressure 130/76 06/08/25 22:59 Pulse Oximetry 97 06/08/25 22:59 Oxygen Delivery Me thod Room Air 06/08/25 20:50 MDM - Arrhythmia/Palpitations Medical Decision Making ROS: Constitutional: Feeling strange , denies fever. Cardiovascular: Reports feeling funny in neck and chest area. Denies chest pain. Home monitor showed heart rate of 40 bpm despite pacemaker. Respiratory: Denies shortness of breath. Gastrointestinal: Denies nausea or vomiting. All other systems: Negative or not addressed in the director of guidance. MEDICATIONS AND ALLERGIES: Medications: - Synthroid (dose not specified) - Clopidogrel (dose not specified) - Furosemide (dose not specified) - Metoprolol 100 mg twice daily - Iron supplement (dose not specified) - Atorvastatin (dose not specified) - Losartan (patient states she no longer takes this) PAST HISTORICAL DATA: PMH: Pacemaker placement (Medtronic) for bradycardia/pauses, peripheral vascular disease with stents in legs, hypothyroidism, hypertension, hyperlipidemia PSH: Stent placement in legs Cardiology: Dr. Ramirez (manager of training) Vascular: Dr. Ruelas (for leg stents) VITAL SIGNS: Initial BP: 160/90 mmHg BP after hydralazine: 130/76 mmHg HR: 64-75 bpm during observation RR: 16 SpO2: 97% on room air Temperature: 98?F Based on this initial impression I will order: 1. Pacemaker interrogation to assess function 2. Serial cardiac enzymes to rule out myocardial injury 3. EKG and repeat EKG to assess for ischemic changes 4. CBC and chemistry panel to assess for metabolic abnormalities 5. Chest X-ray to evaluate for cardiopulmonary pathology 6. Hydralazine for blood pressure control 7. Administration of scheduled metoprolol dose TEST INTERPRETATIONS: Pacemaker Interrogation: No episodes of dysrhythmias, V-tach, or V-fib detected. Pacemaker confirmed to be set at 60 beats per minute and functioning appropriately. Labs: - CBC: Normal - Initial troponin: 23 (indeterminate) - Delta troponin: No significant change from initial value - Chemistry panel: Unremarkable Imaging: - Chest X-ray: Negative for acute processes EKG and Repeat EKG: Both show sinus rhythm with occasional supraventricular premature complexes. Left bundle branch block noted. No ischemic ST elevation or depressions noted. CONSIDERED BUT NOT PERFORMED: Admission for cardiac monitoring CONSIDERED but NOT DONE due to no perceived benefit as patient had no episodes of bradycardia or dysrhythmias during extended observation, pacemaker interrogation showed normal function, and laboratory workup was unremarkable. FINAL IMPRESSION: Based on all the above, my clinical impression is most compatible with transient blood pressure elevation with possible home monitoring device error. The clinical picture is not currently suggestive of acute coronary syndrome, pacemaker malfunction, or significant cardiac arrhythmia. Although other conditions were also considered, they were deemed unlikely based on the clinical information available. CLINICAL DISPOSITION: The patient's current condition is stable in my estimation and the most appropriate and indicated disposition at this time is discharge home with outpatient follow-up. RATIONALE FOR DISCHARGE: The patient is safe for discharge home as she has been observed for over three hours with no episodes of bradycardia (heart rates consistently 65-75 bpm). Pacemaker interrogation confirmed proper function with no dysrhythmias detected. Cardiac workup including troponins showed no evidence of acute coronary syndrome. Blood pressure has improved with medication administration. The patient has been instructed to follow up with her manager of training (Dr. Ramirez) on Wednesday for further evaluation. RISK STRATIFICATION AND CLINICAL DECISION RULES APPLIED: No formal risk stratification tools were applied in this case. Clinical decision-making was based on extended observation (>3 hours), normal pacemaker interrogation results, stable vital signs after treatment, and negative cardiac workup. CASE SUMMARY: 85-year-old female with history of pacemaker placement presented with concerns of low heart rate (40 bpm) on home monitor and feeling strange. Patient has a Medtronic pacemaker set to maintain heart rate above 60 bpm. Initial BP was elevated at 160/90 mmHg. Comprehensive evaluation included pacemaker interrogation (normal function, no dysrhythmias), cardiac enzymes (indeterminate but stable troponin), EKGs (sinus rhythm with LBBB, no acute ischemic changes), and chest X-ray (negative for acute processes). Patient was treated with hydralazine for blood pressure control with improvement to 130/76 mmHg. Throughout 3+ hours of observation, patient maintained heart rates of 65-75 bpm with no episodes of bradycardia. The discrepancy between home readings and hospital findings suggests possible home monitoring device error. Patient was discharged in stable condition with instructions to follow up with her manager of training (Dr. Ramirez) on Wednesday. She was advised to continue her regular medications and return if symptoms recur or worsen. Lab Data I reviewed the patient's lab results. 06/08/25 20:44 06/08/25 20:44 Radiology Impressions Chest X-Ray 06/08/25 20:35 IMPRESSION: No acute finding. Laboratory Results WBC 4.57 10^3/uL (3.29-11.43) 06/08/25 20:44 RBC 3.95 10^6/uL (3.85-5.65) 06/08/25 20:44 Hgb 12.30 g/dL (11.27-16.99) 06/08/25 20:44 Hct 36.5 % (36-47) 06/08/25 20:44 MCV 92.4 fl (85-98) 06/08/25 20:44 MCH 31.1 pg (27-33) 06/08/25 20:44 MCHC 33.7 g/dL (30-55) 06/08/25 20:44 RDW 11.9 % (12.1-15.1) L 06/08/25 20:44 Plt Count 63 10^3/cmm (157-399) L 06/08/25 20:44 MPV 10.1 fL (7.4-10.4) 06/08/25 20:44 Neut % (Auto) 66.1 % 06/08/25 20:44 Lymph % (Auto) 21.2 % 06/08/25 20:44 [place] % (Auto) 8.5 % 06/08/25 20:44 Eos % (Auto) 3.3 % 06/08/25 20:44 Baso % (Auto) 0.7 % 06/08/25 20:44 Neut # (Auto) 3.02 10^3/uL (1.8-7.7) 06/08/25 20:44 Lymph # (Auto) 1.0 10^3/uL (0.8-4.8) 06/08/25 20:44 [place] # (Auto) 0.4 10^3/uL (0.2-0.9) 06/08/25 20:44 Eos # (Auto) 0.2 10^3/uL (0.0-0.8) 06/08/25 20:44 Baso # (Auto) 0.0 10^3/uL (0.0-0.1) 06/08/25 20:44 Nucleated RBC % (auto) 0 % 06/08/25 20:44 Nucleated RBCs # 0.0 /100WBC 06/08/25 20:44 Sodium 142 mmol/L (136-145) 06/08/25 20:44 Potassium 4.0 mmol/L (3.5-5.1) 06/08/25 20:44 Chloride 104 mmol/L (98-107) 06/08/25 20:44 Carbon Dioxide 28 mmol/L (22-29) 06/08/25 20:44 Anion Gap 14.0 (5-19) 06/08/25 20:44 BUN 32 mg/dL (8-23) H 06/08/25 20:44 Creatinine 1.0 mg/dL (0.5-0.9) H 06/08/25 20:44 GFR Calculation Not Reportable 06/08/25 20:44 Glucose 102 mg/dL (65-115) 06/08/25 20:44 Calculated Osmolality 301 mOsm/kg (285-295) H 06/08/25 20:44 Calcium 9.2 mg/dL (8.5-10.5) 06/08/25 20:44 Magnesium 2.2 mg/dL (1.7-2.3) 06/08/25 20:44 Total Bilirubin 0.4 mg/dL (0.15-1.2) 06/08/25 20:44 AST 49 U/L (0-32) H 06/08/25 20:44 ALT 24 U/L (0-33) 06/08/25 20:44 Alkaline Phosphatase 102 U/L (35-105) 06/08/25 20:44 Troponin T Baseline 23 ng/L (0-10) H 06/08/25 20:44 Troponin T 120 Minute 23.37 ng/L (0-10) H 06/08/25 22:45 Delta Troponin T 0.37 ABS# (0-10) 06/08/25 22:45 Total Protein 5.9 g/dL (6.6-8.7) L 06/08/25 20:44 Albumin 4.2 g/dL (3.5-5.2) 06/08/25 20:44 Globulin 1.7 g/dL (1.3-4.6) 06/08/25 20:44 All radiology interpretation(s) finalized by discharge Discharge Plan Discharge Patient Disposition: Home Clinical Impression: Palpitations, Hypertension Condition: Stable Prescriptions: No Action multivitamin Tablet 1 tab PO DAILY silver biotics 1 tbsp 1 tab PO DAILY PRN (Reason: immune support) chromium picolinate 1,000 mcg tablet 1,000 mcg PO DAILY selenium 200 mcg capsule 200 mcg PO DAILY biotin 5,000 mcg tablet, sublingual 1,000 mcg SUBLINGUAL DAILY potassium gluconate 595 mg (99 mg) tablet 1,190 mg PO DAILY ascorbate calcium (vitamin C) 500 mg tablet 500 mg PO DAILY levothyroxine 75 mcg tablet See Rx Instructions .ROUTE .COMPLEX Qty: 90 4RF Dose Instruction: TAKE 1 TABLET BY MOUTH EVERY DAY Rx Instructions: TAKE 1 TABLET BY MOUTH EVERY DAY fluticasone propionate 50 mcg/actuation spray,suspension See Rx Instructions .ROUTE .COMPLEX Qty: 48 4RF Dose Instruction: SPRAY 2 SPRAYS INTO EACH NOSTRIL EVERY DAY Rx Instructions: SPRAY 2 SPRAYS INTO EACH NOSTRIL EVERY DAY furosemide 20 mg tablet 20 mg PO DAILY Qty: 90 3RF losartan 50 mg tablet See Rx Instructions .ROUTE .COMPLEX Qty: 135 3RF Dose Instruction: TAKE 1 AND 1/2 TABLET BY MOUTH EVERY DAY Rx Instructions: TAKE 1 AND 1/2 TABLET BY MOUTH EVERY DAY clopidogrel 75 mg tablet See Rx Instructions .ROUTE .COMPLEX Qty: 90 3RF Dose Instruction: TAKE 1 TABLET BY MOUTH EVERY DAY Rx Instructions: TAKE 1 TABLET BY MOUTH EVERY DAY metoprolol tartrate 50 mg tablet 100 mg PO BID atorvastatin 40 mg Tablet 40 mg PO BEDTIME Qty: 90 3RF ferrous gluconate 324 mg (38 mg iron) tablet 324 mg PO BID Discharge Orders: Discharge ED (Routine); Ordered 06/08/25 Ordered By: Dave Hoff Referrals: Chucky Noland MD [Primary Care Provider, [facility]] Patient Instructions: Heart Palpitations (ED), Opioid Safety, Pain Management, Patient Portal & Barbara Instructions Activity Restrictions/Additional Instructions: INSTRUCTIONS: 1. Continue all your regular medications as prescribed, including your metoprolol 100 mg twice daily. 2. Follow up with Dr. Ramirez (your manager of training) on Wednesday, June 11, 2025. Please call their office to schedule an appointment. 3. Consider using a different blood pressure monitoring device at home, as your wrist monitor may not be providing accurate readings. 4. Take your blood pressure once daily rather than multiple times in succession to avoid anxiety-induced elevations. RETURN TO THE EMERGENCY DEPARTMENT IMMEDIATELY IF YOU EXPERIENCE: - Chest pain or pressure - Shortness of breath - Dizziness or fainting - Palpitations or sensation that your heart is racing or skipping beats - Severe headache - Any other concerning symptoms Print Language: Nauruan Coding Level of Care Code ED Glass Silverer for Alexx Zhu
[2025-06-09 00:46] VITALS: PULSE 79; RESP 17; O2SAT 97
== END 2025-06-08 23:45 | disposition home or self-care (01) ==
PROVIDERS: Emergency Provider Student in an Organized Health Care Education/Training Program; PCP Family Medicine
DX: R00.2 Palpitations (principal); I10 Essential (primary) hypertension; Z79.02 Long term (current) use of antithrombotics/antiplatelets; Z95.0 Presence of cardiac pacemaker
CPT/HCPCS: 36415; 71045; 80053; 83735; 84484; 85025; 93005; 96374; 99285; J0360

== ENCOUNTER → 2025-06-19 15:27 | Outpatient (BNVA) | payer MEDICARE, OTHER, SELFPAY | PROVIDERS: PCP Family Medicine; Visit Provider Nurse Practitioner Family | DX: I48.91 Unspecified atrial fibrillation (principal); Z79.02 Long term (current) use of antithrombotics/antiplatelets; R00.1 Bradycardia, unspecified; I73.9 Peripheral vascular disease, unspecified; I10 Essential (primary) hypertension; Z95.2 Presence of prosthetic heart valve; Z95.0 Presence of cardiac pacemaker | CPT/HCPCS: 99213 ==

== ENCOUNTER → 2025-07-31 13:41 | Outpatient (BNVA) | payer MEDICARE, SELFPAY | PROVIDERS: PCP Family Medicine; Visit Provider Family Medicine | DX: D69.6 Thrombocytopenia, unspecified (principal); I10 Essential (primary) hypertension | CPT/HCPCS: 80053; 80061; 85025 ==

== ENCOUNTER 2025-08-06 10:31 | Oncology outpatient (recurring) (ONCR) | payer MEDICARE, SELFPAY | END 2025-08-07 23:59 | disposition home or self-care (01) | PROVIDERS: PCP Family Medicine; Visit Provider Internal Medicine Medical Oncology | DX: D69.6 Thrombocytopenia, unspecified (principal) | CPT/HCPCS: 99214 ==

== ENCOUNTER → 2025-11-05 13:27 | Outpatient (BNVA) | payer MEDICARE, SELFPAY | PROVIDERS: PCP Family Medicine; Visit Provider Family Medicine | DX: I48.0 Paroxysmal atrial fibrillation (principal); I10 Essential (primary) hypertension; Z95.2 Presence of prosthetic heart valve; D69.6 Thrombocytopenia, unspecified; E03.9 Hypothyroidism, unspecified; D64.9 Anemia, unspecified | CPT/HCPCS: 80053; 84443; 85025 ==

== ENCOUNTER → 2025-11-07 13:20 | Outpatient (BNVA) | payer MEDICARE, SELFPAY | PROVIDERS: PCP Family Medicine; Visit Provider Internal Medicine | DX: Z45.018 Encounter for adjustment and management of other part of cardiac pacemaker (principal) | CPT/HCPCS: 93296 ==